=== PATIENT | female | born 1935 | race Caucasian/White ===

== ENCOUNTER 2021-01-06 16:37 | Inpatient (IN) ==
--- NOTE | 2021-01-06 16:41 | Emergency Department Note ---
Impression & Plan SDH (subdural hematoma), Fracture of occipital bone, Fracture of temporal bone, SAH (subarachnoid hemorrhage), Pneumocephalus, traumatic, Zygomatic fracture ED Provider Note NAME: ABRAHAM MAXWELL AGE: 85 SEX: F : 1935 ARRIVES VIA: Ambulance INFORMANT: Patient, ED PROVIDER(S): Kenny Garland MD Chief Complaint: Fall HPI: Patient does present from [facility] for the patient did have a witnessed ground-level fall. No reported LOC. The patient was confused in route but the patient does have a known history of dementia. There was blood coming from the right ear with the patient was sent to CT. The patient does not complain of any pain otherwise. The patient does not have any neck face upper extremity chest back to lower extremity or pelvis pain. Patient did not come with the medication list. Patient is unable to state which medical problems or medications she takes. Patient denies any chest pains or shortness of breath. Patient had no reported seizure. Unsure as to whether not patient takes any blood thinning medications. ROS: See HPI for pertinent positives and negatives. A total of 10 systems were reviewed and otherwise negative. Past medical history: See below Surgical history: See below Social history: See below Physical Exam: GENERAL: NAD, non-toxic. EYE EXAM: Normal conjunctiva. PERRL, no anisocoria and EOM's grossly intact w/o pain. Ears: Left TM clear, right TM with narrow EAC unable to visualized there is blood pooling in the EAC no obvious laceration. Face: Denies pain to the midface no malocclusion. NECK: Supple, no nuchal rigidity, no adenopathy, non-tender. No signs of meningismus. No midline C-spine TTP LUNGS: Clear to auscultation. Normal chest wall mechanics. HEART: NSR, no MRG. ABDOMEN: Abdomen soft, non-tender, normo-active bowel sounds, no masses, no rebound or guarding. BACK: No CVA TTP. SKIN: No rashes and no bruising. UPPER EXTREMITIES: Upper extremities are grossly normal. LOWER EXTREMITIES: Grossly normal, no edema. NEURO EXAM: A&O x3, cranial nerves II-XII grossly intact, normal speech, moves all 4 extremities on command w/o issue. Differential diagnoses: Fracture, dislocation, contusion, intra-abdominal, pneumothorax, intrathoracic, intracranial, neurologic, compartment syndrome, rhabdomyolysis, as well as other pathologies. Course: Patient was seen and evaluated the bedside. Full history physical exam was performed. EKG interpreted by me Sinus tachycardia with occasional PVCs, rate of 108, normal AL and QRS, normal axis. Imaging Studies: See Below Cardiac monitoring: An order was placed for continuous cardiac monitoring. The monitor shows a rate of 65 with sinus rhythm. MDM: Patient was seen due to concern for fall and had blood coming from the right EAC. Patient was immediately taken to CAT scan. I did receive a call from radiology Dr. Andre who stated the patient did have subarachnoid hemorrhage, subdural hemorrhage, temporal and occipital bone fractures. The patient reportedly does not take blood thinning medications. I did speak with the patient's family member at bedside as well as the patient's PODanyel Reynoso who is coming from [facility]. The patient is DNR/DNI and does not want aggressive interventions to be completed. The patient's blood pressure was controlled with labetalol pushes. The patient's head of the bed was raised given the ICH. Keppra was given for seizure prophylaxis. I did speak with [facility] neurosurgery Dr. Retana who did not recommend transfer given that the patient does not want aggressive interventions and also did state that currently it does not sound as though the patient would require intervention of a surgical nature. He did not recommend antibiotics unless there was clear otorrhea or rhinorrhea that was clear in nature. He also did not recommend seizure prophylaxis in an elderly patient with a history of dementia as this may worsen the symptoms. I did update the family they are in agreement with plan of care. The patient will be admitted at [facility] and not be transferred. I did speak with the on- call hospitalist and a [facility] and the patient was admitted by Dr. Esquivel. Critical Care: I have personally spent 77 minutes of critical care time in direct management of this patient. This includes bedside care, interpretation of diagnostic studies, and testing, discussion with consultants, patient, and family members, and other require inpatient management activities. This 77 minutes is in excess of all separately billable procedures. Past Med/Surg History Medical History Alzheimer disease Bullous pemphigoid Hypothyroidism Surgical History History of thyroidectomy History of tonsillectomy and adenoidectomy Social History Smoking Status: Former smoker Tobacco Type: Cigarettes and Pipe Allergies Allergies Allergy/AdvReac Type Severity Reaction Status Date / Time shellfish derived Allergy Unknown Unknown Unverified 01/06/21 18:47 Home Meds Home Medications Medication Instructions Recorded Confirmed docusate sodium 100 mg capsule 100 mg PO BID 01/06/21 01/06/21 (Colace) levothyroxine 88 mcg tablet 88 mcg PO DAILYBB 01/06/21 01/06/21 memantine ER 28 mg-donepezil 10 mg 1 cap PO HS 01/06/21 01/06/21 capsule sprinkle,ext.release 24 hr (Namzaric) sertraline 50 mg tablet 50 mg PO DAILY@1200 01/06/21 01/06/21 triamcinolone acetonide 0.1 % 1 applic TOPICAL TID 01/06/21 01/06/21 topical ointment Results & Data (ED) Vital Signs Vital Signs - 24 hr 01/06/21 17:01 01/06/21 17:02 01/06/21 17:10 Temperature 36.8 C Temperature Source Oral Pulse Rate 115 H 108 H 105 H Respiratory Rate 20 18 16 Respiratory Effort / Characteristics Non-Labored Respiratory Depth Normal Respiratory Pattern Regular Blood Pressure 180/106 H 180/103 H 173/104 H Blood Pressure Mean 130 128 127 Blood Pressure Position Lying Pulse Oximetry 95 96 94 Oxygen Delivery Method Room Air Room Air Room Air Sepsis Recent Fever Within 48 Hours No Sepsis New/Unexplained Change in Mental Status N/A Sepsis Action Taken by Nursing No Action Required 01/06/21 17:18 01/06/21 17:20 01/06/21 17:30 Temperature Temperature Source Pulse Rate 110 H 105 H 105 H Respiratory Rate 19 18 Respiratory Effort / Characteristics Respiratory Depth Respiratory Pattern Blood Pressure 175/104 H 175/106 H Blood Pressure Mean 127 129 Blood Pressure Position Pulse Oximetry 95 94 95 Oxygen Delivery Method Room Air Room Air Room Air Sepsis Recent Fever Within 48 Hours Sepsis New/Unexplained Change in Mental Status Sepsis Action Taken by Nursing 01/06/21 17:40 01/06/21 17:47 01/06/21 17:50 Temperature Temperature Source Pulse Rate 86 70 71 Respiratory Rate 23 20 16 Respiratory Effort / Characteristics Respiratory Depth Respiratory Pattern Blood Pressure 122/81 134/82 142/85 H Blood Pressure Mean 94 99 104 Blood Pressure Position Pulse Oximetry 94 94 93 Oxygen Delivery Method Room Air Room Air Room Air Sepsis Recent Fever Within 48 Hours Sepsis New/Unexplained Change in Mental Status Sepsis Action Taken by Nursing 01/06/21 18:00 01/06/21 18:05 01/06/21 18:10 Temperature Temperature Source Pulse Rate 70 72 73 Respiratory Rate 18 20 17 Respiratory Effort / Characteristics Respiratory Depth Respiratory Pattern Blood Pressure 131/81 142/85 H Blood Pressure Mean 97 104 Blood Pressure Position Pulse Oximetry 93 94 92 Oxygen Delivery Method Room Air Room Air Room Air Sepsis Recent Fever Within 48 Hours Sepsis New/Unexplained Change in Mental Status Sepsis Action Taken by Nursing 01/06/21 18:20 01/06/21 18:30 01/06/21 18:40 Temperature Temperature Source Pulse Rate 73 75 76 Respiratory Rate 17 19 23 Respiratory Effort / Characteristics Respiratory Depth Respiratory Pattern Blood Pressure 148/86 H 128/80 Blood Pressure Mean 106 96 Blood Pressure Position Pulse Oximetry 94 94 93 Oxygen Delivery Method Room Air Room Air Room Air Sepsis Recent Fever Within 48 Hours Sepsis New/Unexplained Change in Mental Status Sepsis Action Taken by Usp Medications Current Medication List: was personally reviewed by me Laboratory Data Attestation: I reviewed the patient's lab results. Result diagrams: 01/06/21 17:10 01/06/21 17:10 Lab Results 01/06/21 01/06/21 01/06/21 Range/Units 17:10 17:10 17:10 WBC 12.31 H (4.8-10.8) K/uL RBC 5.01 (4.2-5.4) M/uL Hgb 15.6 (12.0-16.0) g/dL Hct 46.8 (37-47) % MCV 93.4 (80-100) fL MCH 31.1 (25-34) pg MCHC 33.3 (32-36) g/dL RDW Std Deviation 52.2 H (36.4-46.3) fL RDW Coeff of Flaquito 15.3 H (11.5-14.5) % Plt Count 394 (130-400) K/uL MPV 10.3 (7.4-10.4) fL Immature Gran % (Auto) 0.6 % Neut % (Auto) 75.1 % Lymph % (Auto) 11.9 % Clarke % (Auto) 7.6 % Eos % (Auto) 4.6 % Baso % (Auto) 0.2 % Neut # (Auto) 9.23 H (1.4-6.5) K/uL Lymph # (Auto) 1.47 (1.2-3.4) K/uL Clarke # (Auto) 0.93 H (0.11-0.59) K/uL Eos # (Auto) 0.57 H (0-0.5) K/uL Baso # (Auto) 0.03 (0-0.2) K/uL Immature Gran # (Auto) 0.08 H (0.00-0.02) K/uL PT 10.9 (9.0-12.0) Seconds INR 1.1 (0.9-1.1) APTT 24.8 (21.0-31.0) Seconds PTT Ratio 0.9 Sodium 135 L (136-145) mmol/L Potassium 3.5 (3.5-5.1) mmol/L Chloride 101 (98-107) mmol/L Carbon Dioxide 24 (21-32) mmol/L Anion Gap 10.0 (3-11) BUN 19 H (7-18) mg/dl Creatinine 1.12 (0.6-1.2) mg/dl Est Cr Clr Drug Dosing 30.4 ml/min Est GFR ( Amer) 51.9 ml/min Est GFR (Non-Af Amer) 44.8 ml/min BUN/Creatinine Ratio 17.4 (10-20) Glucose 104 H (70-99) mg/dl Calcium 9.5 (8.5-10.1) mg/dl Total Bilirubin 0.6 (0.2-1) mg/dl AST 25 (15-37) U/L ALT 27 (12-78) U/L Alkaline Phosphatase 126 H (45-117) U/L Total Protein 7.1 (6.4-8.2) gm/dl Albumin 3.2 L (3.4-5.0) gm/dl Globulin 3.9 (2.5-4.0) gm/dl Albumin/Globulin Ratio 0.8 L (0.9-2) SARS-CoV-2, RNA, NAAT (NEGATIVE) 01/06/21 Range/Units 17:45 WBC (4.8-10.8) K/uL RBC (4.2-5.4) M/uL Hgb (12.0-16.0) g/dL Hct (37-47) % MCV (80-100) fL MCH (25-34) pg MCHC (32-36) g/dL RDW Std Deviation (36.4-46.3) fL RDW Coeff of Flaquito (11.5-14.5) % Plt Count (130-400) K/uL MPV (7.4-10.4) fL Immature Gran % (Auto) % Neut % (Auto) % Lymph % (Auto) % Clarke % (Auto) % Eos % (Auto) % Baso % (Auto) % Neut # (Auto) (1.4-6.5) K/uL Lymph # (Auto) (1.2-3.4) K/uL Clarke # (Auto) (0.11-0.59) K/uL Eos # (Auto) (0-0.5) K/uL Baso # (Auto) (0-0.2) K/uL Immature Gran # (Auto) (0.00-0.02) K/uL PT (9.0-12.0) Seconds INR (0.9-1.1) APTT (21.0-31.0) Seconds PTT Ratio Sodium (136-145) mmol/L Potassium (3.5-5.1) mmol/L Chloride (98-107) mmol/L Carbon Dioxide (21-32) mmol/L Anion Gap (3-11) BUN (7-18) mg/dl Creatinine (0.6-1.2) mg/dl Est Cr Clr Drug Dosing ml/min Est GFR ( Amer) ml/min Est GFR (Non-Af Amer) ml/min BUN/Creatinine Ratio (10-20) Glucose (70-99) mg/dl Calcium (8.5-10.1) mg/dl Total Bilirubin (0.2-1) mg/dl AST (15-37) U/L ALT (12-78) U/L Alkaline Phosphatase (45-117) U/L Total Protein (6.4-8.2) gm/dl Albumin (3.4-5.0) gm/dl Globulin (2.5-4.0) gm/dl Albumin/Globulin Ratio (0.9-2) SARS-CoV-2, RNA, NAAT NEGATIVE (NEGATIVE) Administered Medications Discontinued Medications Levetiracetam 1,500 mg/ Sodium (Chloride) 115 mls @ 440 mls/hr IV NOW STA Stop: 01/06/21 17:38 Last Infusion: 01/06/21 18:04 Dose: 440 mls/hr Documented by: [id number] Admin: 01/06/21 17:44 Dose: 440 mls/hr Documented by: [id number] Labetalol HCl (Labetalol Hcl Iv 5 Mg/Ml 20ml) 10 mg IV NOW STA Stop: 01/06/21 17:23 Last Admin: 01/06/21 17:35 Dose: 10 mg Documented by: [id number] Cosigned by: [id number] Imaging Data Radiologist's Impression: Cervical Spine CT 01/06/21 16:40 CT cervical spine wo con CT DOSE: 1397.29 mGy.cm CLINICAL HISTORY: 85 years-old Female with fall. Acute neck injury status post fall COMPARISON: CT head and maxillofacial studies of same day TECHNIQUE: Multiple axial CT images of the cervical spine were obtained without contrast. A dose lowering technique was utilized adhering to the principles of ALARA. FINDINGS: Demineralized appearance of the bones. 5 mm anterolisthesis C3 on C4 with 2 mm anterolisthesis C7 on T1, likely degenerative. Severe multilevel facet arthrosis. Moderate to severe intervertebral disc space narrowing of the mid cervical spine with associated spondylitic spurring and small posterior disc osteophyte complex formations. No acute cervical spine fracture identified. Acute fractures of the right occipital calvarium and temporal bone with right mastoid effusion. Right posterior scalp hematoma with pneumocephalus. Interloop cranial hemorrhage redemonstrated. The right occipital fracture extends into the right occipital condyle on image 98 of series 7. Multilevel neural foraminal narrowing. Intracranial hemorrhage extends into the foramen magnum. No prevertebral edema. The lung apices are clear without pneumothorax. IMPRESSION: 1. No acute cervical spine fracture identified. 2. Anterolisthesis C3 on C4 and C7 on T1 is likely secondary to severe chronic facet arthrosis. 3. Please refer to the CT temporal bone and maxillofacial studies of same day for discussion of the acute intracranial hemorrhage, acute calvarial and facial bone fractures. Note that the right occipital fracture extends into the occipital condyle without displacement. ACT 112: Negative or not required by law. The above report was generated using voice recognition software. It may contain grammatical, syntax or spelling errors. Electronically signed by: Peter Gaffney M.D. 01/06/2021 5:[address] 01/06/21 16:40 CT facial bones wo con, CT temporal bones wo con CLINICAL HISTORY: 85 years-old Female presenting with fall. Acute head injury status post fall COMPARISON STUDY: CT head and cervical spine studies of same day TECHNIQUE: High-resolution CT scan of the maxillofacial and temporal bones were performed. Images are reviewed in the axial, sagittal, and coronal planes. IV contrast was not administered for this examination. A dose lowering technique was utilized adhering to the principles of ALARA. FINDINGS: CT MAXILLOFACIAL: Acute nondisplaced fracture involves the posterior aspect of the right zygomatic arch on image 180 series 8. No acute nasal bone fracture. The paranasal sinuses are generally clear. Pterygoid plates are intact. Mild rightward bowing and spurring of the nasal septum. Degenerative changes of the cervical spine. Acute nondisplaced fractures of the right occipital calvarium with fracture extension to the right occipital condyle. There is associated pneumocephalus with acute intracranial hemorrhage and right posterior scalp,. Intracranial hemorrhage extends into the foramen magnum. Temporal bone fracture as below. Air is noted within the left sigmoid sinus. CT TEMPORAL BONES: The left mastoid air cells and left middle ear cavity is clear. The left ossicles appear normal. The scutum appears sharp bilaterally. No cholesteatoma identified. Acute fracture of the right temporal bone is transverse to the otic capsule. The middle ear ossicles appear intact and appropriately positioned. Large amount of fluid is present within the right middle ear cavity. Large right mastoid effusion. Unremarkable semicircular canals. Course of the seventh, nerve appears normal bilaterally. IMPRESSION: 1. Acute nondisplaced fractures of the right occipital calvarium with fracture extension into the right occipital condyle. Associated right occipital scalp hematoma with subcutaneous emphysema, pneumocephalus and acute intracranial hemorrhage, better characterized on the head CT of same day. 2. Acute fracture of the right temporal bone, transverse to the otic capsule with appropriately positioned and intact middle ear ossicles. Large amount of fluid/hemorrhage is present within the right middle ear cavity and mastoid air cells. 3. Acute nondisplaced fracture of the right zygomatic arch. ACT 112: Negative or not required by law. The above report was generated using voice recognition software. It may contain grammatical, syntax or spelling errors. Electronically signed by: Peter Gaffney M.D. 01/06/2021 5:[address] 01/06/21 16:40 CT head/brain wo con CLINICAL HISTORY: 85 years-old Female with fall. Acute head trauma status post fall TECHNIQUE: Multiple axial CT images of the head were obtained without contrast. A dose lowering technique was utilized adhering to the principles of ALARA. COMPARISON: CT head and maxillofacial studies of same day FINDINGS: Age-related involutional changes with ex vacuo ventriculomegaly. White matter hypodensities suggest chronic microvascular ischemic disease. Cerebral vascular calcifications. Mild subarachnoid hemorrhage of the left frontal lobe. Trace subdural hematoma adjacent to the left frontal and bilateral temporal lobes measuring up to 4 mm within the right middle cranial fossa. Small acute subdural hematoma is also noted along the right parietal and occipital lobes measuring up to 6 mm with associated hydrocephalus. Subdural hemorrhage tracks along the right cerebellar tentorium into the cisterna magna. No midline shift or acute intraventricular or intraparenchymal hemorrhage. Acute fractures of the right temporal bone and right occipital calvarium with right mastoid effusion. Trace air is noted along the inner table of the skull to the left sigmoid sinus on image 5 series 5, likely within the venous system. Prior bilateral lens repair. 5.3 x 0.7 cm right posterolateral scalp hematoma. Probable fracture of the right zygomatic arch. Paranasal sinuses are generally clear. IMPRESSION: 1. Small amount of acute subarachnoid hemorrhage of the left frontal lobe with subcentimeter acute subdural hematomas adjacent to the bilateral cerebral convexities and layering along the right cerebellar tentorium. No midline shift or hydrocephalus. 2. Acute fractures of the right occipital calvarium and right temporal bone with mild associated pneumocephalus and right mastoid effusion. Please refer to the CT maxillofacial study of same day for additional findings. Findings were discussed with Dr. Kenny Garland on 01/06/2021 at 5:10 PM. ACT 112: Negative or not required by law. The above report was generated using voice recognition software. It may contain grammatical, syntax or spelling errors. Electronically signed by: Peter Gaffney M.D. 01/06/2021 5:[address] 01/06/21 16:40 CT facial bones wo con, CT temporal bones wo con CLINICAL HISTORY: 85 years-old Female presenting with fall. Acute head injury status post fall COMPARISON STUDY: CT head and cervical spine studies of same day TECHNIQUE: High-resolution CT scan of the maxillofacial and temporal bones were performed. Images are reviewed in the axial, sagittal, and coronal planes. IV contrast was not administered for this examination. A dose lowering technique was utilized adhering to the principles of ALARA. FINDINGS: CT MAXILLOFACIAL: Acute nondisplaced fracture involves the posterior aspect of the right zygomatic arch on image 180 series 8. No acute nasal bone fracture. The paranasal sinuses are generally clear. Pterygoid plates are intact. Mild rightward bowing and spurring of the nasal septum. Degenerative changes of the cervical spine. Acute nondisplaced fractures of the right occipital calvarium with fracture extension to the right occipital condyle. There is associated pneumocephalus with acute intracranial hemorrhage and right posterior scalp,. Intracranial hemorrhage extends into the foramen magnum. Temporal bone fracture as below. Air is noted within the left sigmoid sinus. CT TEMPORAL BONES: The left mastoid air cells and left middle ear cavity is clear. The left ossicles appear normal. The scutum appears sharp bilaterally. No cholesteatoma identified. Acute fracture of the right temporal bone is transverse to the otic capsule. The middle ear ossicles appear intact and appropriately positioned. Large amount of fluid is present within the right middle ear cavity. Large right mastoid effusion. Unremarkable semicircular canals. Course of the seventh, nerve appears normal bilaterally. IMPRESSION: 1. Acute nondisplaced fractures of the right occipital calvarium with fracture extension into the right occipital condyle. Associated right occipital scalp hematoma with subcutaneous emphysema, pneumocephalus and acute intracranial hemorrhage, better characterized on the head CT of same day. 2. Acute fracture of the right temporal bone, transverse to the otic capsule with appropriately positioned and intact middle ear ossicles. Large amount of fluid/hemorrhage is present within the right middle ear cavity and mastoid air cells. 3. Acute nondisplaced fracture of the right zygomatic arch. ACT 112: Negative or not required by law. The above report was generated using voice recognition software. It may contain grammatical, syntax or spelling errors. Electronically signed by: Peter Gaffney M.D. 01/06/2021 5:42 PM Discharge Plan Visit Data Chief Complaint: Fall ED Provider: Kenny Garland Discharge Problem: SDH (subdural hematoma), Fracture of occipital bone, Fracture of temporal bone, SAH (subarachnoid hemorrhage), Pneumocephalus, traumatic, Zygomatic fracture Forms Stand Alone Forms: [facility] [employer] Prescriptions Prescriptions: No Action levothyroxine 88 mcg tablet 88 mcg PO DAILYBB RF: 0 triamcinolone acetonide 0.1 % ointment 1 applic TOPICAL TID RF: 0 docusate sodium [Colace] 100 mg Capsule 100 mg PO BID RF: 0 sertraline 50 mg tablet 50 mg PO DAILY@1200 RF: 0 Namzaric 28-10 mg capsule,marissa,ER 24hr 1 cap PO HS RF: 0 Referrals Referrals: Naborzoe, [Primary Care Provider] -
--- NOTE | 2021-01-06 17:12 | CT Scan Report ---
CT head/brain wo con CLINICAL HISTORY: 85 years-old Female with fall. Acute head trauma status post fall TECHNIQUE: Multiple axial CT images of the head were obtained without contrast. A dose lowering tech nique was utilized adhering to the principles of ALARA. COMPARISON: CT head and maxillofacial studies of same day FINDINGS: Age-related involutional changes with ex vacuo ventriculomegaly. White matter hypodensities suggest c hronic microvascular ischemic disease. Cerebral vascular calcifications. Mild subarachnoid hemorrhage of the left frontal lobe. Trace subdural hematoma adjacent to the left frontal and bilateral tempora l lobes measuring up to 4 mm within the right middle cranial fossa. Small acute subdural hematoma is also noted along the right parietal and occipital lobes measuring up to 6 mm with associated hydrocep halus. Subdural hemorrhage tracks along the right cerebellar tentorium into the cisterna magna. No mi dline shift or acute intraventricular or intraparenchymal hemorrhage. Acute fractures of the right temporal bone and right occipital calvarium with right mastoid effusion. Trace air is noted along the inner table of the skull to the left sigmoid sinus on image 5 series 5, likely within the venous system. Prior bilateral lens repair. 5.3 x 0.7 cm right posterolateral scal p hematoma. Probable fracture of the right zygomatic arch. Paranasal sinuses are generally clear. IMPRESSION: 1. Small amount of acute subarachnoid hemorrhage of the left frontal lobe with subcentimeter acute fraser bdural hematomas adjacent to the bilateral cerebral convexities and layering along the right cerebell ar tentorium. No midline shift or hydrocephalus. 2. Acute fractures of the right occipital calvarium and right temporal bone with mild associated pneu mocephalus and right mastoid effusion. Please refer to the CT maxillofacial study of same day for add itional findings. Findings were discussed with Dr. Kenny Garland on 01/06/2021 at 5:10 PM. ACT 112: Negative or not required by law. The above report was generated using voice recognition software. It may contain grammatical, syntax o r spelling errors. Electronically signed by: Peter Gaffney M.D. 01/06/2021 5:11 PM
[2021-01-06 17:18] LABS: Basophils # (auto) 0.03 K/uL (0-0.2); Basophils % (auto) 0.2 %; Eosinophils # (auto) 0.57 K/uL (0-0.5); Eosinophils % (auto) 4.6 %; Hematocrit (blood only) 46.8 % (37-47); Hemoglobin 15.6 g/dL (12.0-16.0); Immature Granulocytes # (auto) 0.08 K/uL (0.00-0.02); Immature Granulocytes % (auto) 0.6 %; Lymphocytes # (auto) 1.47 K/uL (1.2-3.4); Lymphocytes % (auto) 11.9 %; Mean Corpuscular Hemoglobin 31.1 pg (25-34); Mean Corpuscular Hgb Conc 33.3 g/dL (32-36); Mean Corpuscular Volume 93.4 fL (80-100); Mean Platelet Volume 10.3 fL (7.4-10.4); Monocytes # (auto) 0.93 K/uL (0.11-0.59); Monocytes % (auto) 7.6 %; Neutrophils # (auto) 9.23 K/uL (1.4-6.5); Neutrophils % (auto) 75.1 %; Platelet Count 394 K/uL (130-400); RDW Coefficient of Variation 15.3 % (11.5-14.5); RDW Standard Deviation 52.2 fL (36.4-46.3); Red Blood Count 5.01 M/uL (4.2-5.4); White Blood Count 12.31 K/uL (4.8-10.8)
[2021-01-06] MEDS ORDERED: LABETALOL HCL IV 5 MG/ML 20ML IV PRN ×2 (17:22→20:32)
[2021-01-06] MEDS ORDERED: LABETALOL HCL IV 5 MG/ML 20ML IV STA (17:22)
[2021-01-06] MEDS ORDERED: levETIRAcetam 1,500 MG in 0.9 % SODIUM CHLORIDE 100 ML IV STA (17:24)
[2021-01-06 17:29] LABS: INR 1.1 (0.9-1.1); Partial Thromboplastin Ratio 0.9; Partial Thromboplastin Time 24.8 Seconds (21.0-31.0); Prothrombin Time 10.9 Seconds (9.0-12.0)
--- NOTE | 2021-01-06 17:36 | CT Scan Report ---
CT cervical spine wo con CT DOSE: 1397.29 mGy.cm CLINICAL HISTORY: 85 years-old Female with fall. Acute neck injury status post fall COMPARISON: CT head and maxillofacial studies of same day TECHNIQUE: Multiple axial CT images of the cervical spine were obtained without contrast. A dose low ering technique was utilized adhering to the principles of ALARA. FINDINGS: Demineralized appearance of the bones. 5 mm anterolisthesis C3 on C4 with 2 mm anterolisthe sis C7 on T1, likely degenerative. Severe multilevel facet arthrosis. Moderate to severe intervertebr al disc space narrowing of the mid cervical spine with associated spondylitic spurring and small post erior disc osteophyte complex formations. No acute cervical spine fracture identified. Acute fracture s of the right occipital calvarium and temporal bone with right mastoid effusion. Right posterior sca lp hematoma with pneumocephalus. Interloop cranial hemorrhage redemonstrated. The right occipital fra cture extends into the right occipital condyle on image 98 of series 7. Multilevel neural foraminal n arrowing. Intracranial hemorrhage extends into the foramen magnum. No prevertebral edema. The lung apices are clear without pneumothorax. IMPRESSION: 1. No acute cervical spine fracture identified. 2. Anterolisthesis C3 on C4 and C7 on T1 is likely secondary to severe chronic facet arthrosis. 3. Please refer to the CT temporal bone and maxillofacial studies of same day for discussion of the a cute intracranial hemorrhage, acute calvarial and facial bone fractures. Note that the right occipita l fracture extends into the occipital condyle without displacement. ACT 112: Negative or not required by law. The above report was generated using voice recognition software. It may contain grammatical, syntax o r spelling errors. Electronically signed by: Peter Gaffney M.D. 01/06/2021 5:35 PM
--- NOTE | 2021-01-06 17:43 | CT Scan Report ---
CT facial bones wo con, CT temporal bones wo con CLINICAL HISTORY: 85 years-old Female presenting with fall. Acute head injury status post fall COMPARISON STUDY: CT head and cervical spine studies of same day TECHNIQUE: High-resolution CT scan of the maxillofacial and temporal bones were performed. Images ar e reviewed in the axial, sagittal, and coronal planes. IV contrast was not administered for this exam ination. A dose lowering technique was utilized adhering to the principles of ALARA. FINDINGS: CT MAXILLOFACIAL: Acute nondisplaced fracture involves the posterior aspect of the right zygomatic arch on image 180 se mimi 8. No acute nasal bone fracture. The paranasal sinuses are generally clear. Pterygoid plates are intact. Mild rightward bowing and spurring of the nasal septum. Degenerative changes of the cervical spine. Acute nondisplaced fractures of the right occipital calvarium with fracture extension to the right occipital condyle. There is associated pneumocephalus with acute intracranial hemorrhage and ri ght posterior scalp,. Intracranial hemorrhage extends into the foramen magnum. Temporal bone fracture as below. Air is noted within the left sigmoid sinus. CT TEMPORAL BONES: The left mastoid air cells and left middle ear cavity is clear. The left ossicles appear normal. The scutum appears sharp bilaterally. No cholesteatoma identified. Acute fracture of the right temporal b one is transverse to the otic capsule. The middle ear ossicles appear intact and appropriately positi oned. Large amount of fluid is present within the right middle ear cavity. Large right mastoid effusi on. Unremarkable semicircular canals. Course of the seventh, nerve appears normal bilaterally. IMPRESSION: 1. Acute nondisplaced fractures of the right occipital calvarium with fracture extension into the rig ht occipital condyle. Associated right occipital scalp hematoma with subcutaneous emphysema, pneumoce phalus and acute intracranial hemorrhage, better characterized on the head CT of same day. 2. Acute fracture of the right temporal bone, transverse to the otic capsule with appropriately posit ioned and intact middle ear ossicles. Large amount of fluid/hemorrhage is present within the right mi ddle ear cavity and mastoid air cells. 3. Acute nondisplaced fracture of the right zygomatic arch. ACT 112: Negative or not required by law. The above report was generated using voice recognition software. It may contain grammatical, syntax o r spelling errors. Electronically signed by: Peter Gaffney M.D. 01/06/2021 5:42 PM
[2021-01-06 17:52] LABS: Albumin Level 3.2 gm/dl (3.4-5.0); BUN Creatinine Ratio 17.4 (10-20); Calcium 9.5 mg/dl (8.5-10.1); Creatinine Clr Calc Pharmacy 30.4 ml/min; Est GFR (African American) 51.9 ml/min; Est GFR (Non-African American) 44.8 ml/min; Potassium 3.5 mmol/L (3.5-5.1)
[2021-01-06 17:54] LABS: Albumin Globulin Ratio 0.8 (0.9-2); Bilirubin,Total 0.6 mg/dl (0.2-1); Globulin 3.9 gm/dl (2.5-4.0); Total Protein 7.1 gm/dl (6.4-8.2)
--- NOTE | 2021-01-06 18:45 | History & Physical Report ---
Date of Service January 06, 2021 Assessment & Plan (1) Fall: (2) SAH (subarachnoid hemorrhage): (3) SDH (subdural hematoma): (4) Fracture of temporal bone: (5) Fracture of occipital bone: (6) Pneumocephalus, traumatic: (7) Zygomatic fracture: Plan: Patient is 85-year-old female with history Alzheimer's disease, surgical hypothyroidism, bullous pemphigoid presented to ER after fall from standing position at [facility]. +blood coming from right ear canal. Pt reported to be at her baseline mental status by family member. CT head: 1. Small amount of acute subarachnoid hemorrhage of the left frontal lobe with subcentimeter acute subdural hematomas adjacent to the bilateral cerebral convexities and layering along the right cerebellar tentorium. No midline shift or hydrocephalus. 2. Acute fractures of the right occipital calvarium and right temporal bone with mild associated pneumocephalus and right mastoid effusion. Please refer to the CT maxillofacial study of same day for additional findings. CT maxillofacial/CT temporal bones: 1. Acute nondisplaced fractures of the right occipital calvarium with fracture extension into the right occipital condyle. Associated right occipital scalp hematoma with subcutaneous emphysema, pneumocephalus and acute intracranial hemorrhage, better characterized on the head CT of same day. 2. Acute fracture of the right temporal bone, transverse to the otic capsule with appropriately positioned and intact middle ear ossicles. Large amount of fluid/hemorrhage is present within the right middle ear cavity and mastoid air cells. 3. Acute nondisplaced fracture of the right zygomatic arch. CT C-spine: No acute cervical fracture ER physician as well as myself spoke to patient's son, SUNG Reynoso who reports patient is DNR/DNI and they do not want any surgical intervention. Patient's son is on his way from [place] and is expected to arrive before 10pm today. In ER patient given Keppra 1500 mg IV, labetalol 10 mg IV ER spoke to [facility] Aydin-Dr. Retana neurosurgery who had recommended no seizure prophylaxis medication and only give antibiotics if clear otorrhea/rhinorrhea consistent with CSF. I also spoke with Dr Retana who reiterated no seizure prophylaxis or antibiotics indicated and recommended can do repeat CT imaging Serial neuro checks Repeat head CT in 12 hours Labetalol as needed BP> 160 Neurology consult (8) Alzheimer disease: Plan: Patient reported to be at baseline Continue home medicine (9) Hypothyroidism: Plan: Continue levothyroxine DVT Prophylaxis -SCDs DNR/DNI as per discussion with pt Pt was seen and care coordinated with Dr Esquivel. See addendum History of Present Illness Chief Complaint: Fall Primary Care Provider: [facility] Patient is 85-year-old female with history Alzheimer's disease, surgical hypothyroidism, bullous pemphigoid presented to ER after fall. Patient is residing at [facility]. History is obtained from ER staff and chart review as patient with history of dementia. It is reported prior to arrival patient was standing and fell. Upon ER arrival it was noted patient had blood coming from right ear canal. Patient's niece is with her in ER currently reports patient's baseline is that she is oriented to person and she knows her niece and great nephew. Not oriented to time or place. Reports patient has recently been on [facility] for past several weeks patient has had increased depressed mood and has not been ambulating. Niece was visiting patient today and patient was able to ambulate with walker. Soon after she visited patient was reported to fall. Here in ER she reports pt seems to be at her baseline mental status. ER physician as well as myself spoke to patient's son, SUNG Reynoso who reports patient is DNR/DNI and they do not want any surgical intervention. Patient's son is on his way from [place] and is expected to arrive before 10pm today. ER spoke to [facility] Aydin-Dr. Retana neurosurgery who had recommended no seizure prophylaxis medication and only give antibiotics if clear otorrhea/rhinorrhea consistent with CSF. I also spoke with Dr Retana who reiterated no seizure prophylaxis or antibiotics indicated and recommended can do repeat CT imaging. Allergies Allergy/AdvReac Type Severity Reaction Status Date / Time shellfish derived Allergy Unknown Unknown Unverified 01/06/21 18:47 Home Medications Medication Instructions Recorded Confirmed Type docusate sodium 100 mg capsule 100 mg PO BID 01/06/21 01/06/21 History (Colace) levothyroxine 88 mcg tablet 88 mcg PO DAILYBB 01/06/21 01/06/21 History memantine ER 28 mg-donepezil 10 mg 1 cap PO HS 01/06/21 01/06/21 History capsule sprinkle,ext.release 24 hr (Namzaric) sertraline 50 mg tablet 50 mg PO DAILY@1200 01/06/21 01/06/21 History triamcinolone acetonide 0.1 % 1 applic TOPICAL TID 01/06/21 01/06/21 History topical ointment Past Med/Surg History Medical History Alzheimer disease Bullous pemphigoid Hypothyroidism Surgical History History of thyroidectomy History of tonsillectomy and adenoidectomy Family History Other Stroke Social History Smoking Status: Unknown if ever smoked Tobacco Type: Cigarettes and Pipe Hx Alcohol Use: No Hx Substance Use: No Review of Systems Review of Systems: Unobtainable due to cognitive status Physical Exam Physical Exam: General: no apparent distress, thin elderly female Head: normocephalic Eyes: PERRL, EOM's appear grossly intact (pt not cooperative), conjunctiva non- injected, anicteric Face: no ecchymosis ENT: +blood in right ear canal, normal inspection external ears, nose, no discharge from nose or left ear, mucous membranes appear moist Neck: supple, trachea midline, no apparent tenderness to palpation Lungs: clear, no respiratory distress, no wheezing/rhonchi/rales CV: RRR, no murmur, no pretibial edema Abd: normal BS, soft, non-tender Ext: no cyanosis, no erythema Neuro: Alert. Pt resting with eyes closed and will open upon command. Seems to recognize niece in room with her. Will not speak to this provider but it is reported she spoke to niece prior to my exam. Pt appears disgusted with my exam however does follow some commands and cooperates with partial exam Able to raise and hold up bilateral arms, textile machine operator strength equal, able to extend and flex bilateral knees, bilateral eyebrow raise symmetric, shoulder shrug intact, face symmetric and strong, tongue midline, normal movement Skin: warm, dry Results & Data Results & Data ([facility]) Vital Signs (Past 12 Hours) Vital Signs Temp Pulse Resp BP Pulse Ox 01/06/21 18:40 76 23 128/80 93 01/06/21 18:30 75 19 94 01/06/21 18:20 73 17 148/86 H 94 01/06/21 18:10 73 17 92 01/06/21 18:05 72 20 142/85 H 94 01/06/21 18:00 70 18 131/81 93 01/06/21 17:50 71 16 142/85 H 93 01/06/21 17:47 70 20 134/82 94 01/06/21 17:40 86 23 122/81 94 01/06/21 17:30 105 H 18 175/106 H 95 01/06/21 17:20 105 H 19 175/104 H 94 01/06/21 17:18 110 H 95 01/06/21 17:10 105 H 16 173/104 H 94 01/06/21 17:02 108 H 18 180/103 H 96 01/06/21 17:01 36.8 C 115 H 20 180/106 H 95 Laboratory Results Short CBC 01/06/21 Range/Units 17:10 WBC 12.31 H (4.8-10.8) K/uL Hgb 15.6 (12.0-16.0) g/dL Hct 46.8 (37-47) % Plt Count 394 (130-400) K/uL BMP 01/06/21 17:10 Sodium 135 L Potassium 3.5 Chloride 101 Carbon Dioxide 24 BUN 19 H Creatinine 1.12 Glucose 104 H Calcium 9.5 Liver Function 01/06/21 Range/Units 17:10 Total Bilirubin 0.6 (0.2-1) mg/dl AST 25 (15-37) U/L ALT 27 (12-78) U/L Alkaline Phosphatase 126 H (45-117) U/L Albumin 3.2 L (3.4-5.0) gm/dl Diagnostic Findings Cervical Spine CT 01/06/21 16:40 CT cervical spine wo con CT DOSE: 1397.29 mGy.cm CLINICAL HISTORY: 85 years-old Female with fall. Acute neck injury status post fall COMPARISON: CT head and maxillofacial studies of same day TECHNIQUE: Multiple axial CT images of the cervical spine were obtained without contrast. A dose lowering technique was utilized adhering to the principles of ALARA. FINDINGS: Demineralized appearance of the bones. 5 mm anterolisthesis C3 on C4 with 2 mm anterolisthesis C7 on T1, likely degenerative. Severe multilevel facet arthrosis. Moderate to severe intervertebral disc space narrowing of the mid cervical spine with associated spondylitic spurring and small posterior disc osteophyte complex formations. No acute cervical spine fracture identified. Acute fractures of the right occipital calvarium and temporal bone with right mastoid effusion. Right posterior scalp hematoma with pneumocephalus. Interloop cranial hemorrhage redemonstrated. The right occipital fracture extends into the right occipital condyle on image 98 of series 7. Multilevel neural foraminal narrowing. Intracranial hemorrhage extends into the foramen magnum. No prevertebral edema. The lung apices are clear without pneumothorax. IMPRESSION: 1. No acute cervical spine fracture identified. 2. Anterolisthesis C3 on C4 and C7 on T1 is likely secondary to severe chronic facet arthrosis. 3. Please refer to the CT temporal bone and maxillofacial studies of same day for discussion of the acute intracranial hemorrhage, acute calvarial and facial bone fractures. Note that the right occipital fracture extends into the occipital condyle without displacement. ACT 112: Negative or not required by law. The above report was generated using voice recognition software. It may contain grammatical, syntax or spelling errors. Electronically signed by: Peter Gaffney M.D. 01/06/2021 5:[address] 01/06/21 16:40 CT facial bones wo con, CT temporal bones wo con CLINICAL HISTORY: 85 years-old Female presenting with fall. Acute head injury status post fall COMPARISON STUDY: CT head and cervical spine studies of same day TECHNIQUE: High-resolution CT scan of the maxillofacial and temporal bones were performed. Images are reviewed in the axial, sagittal, and coronal planes. IV contrast was not administered for this examination. A dose lowering technique was utilized adhering to the principles of ALARA. FINDINGS: CT MAXILLOFACIAL: Acute nondisplaced fracture involves the posterior aspect of the right zygomatic arch on image 180 series 8. No acute nasal bone fracture. The paranasal sinuses are generally clear. Pterygoid plates are intact. Mild rightward bowing and spurring of the nasal septum. Degenerative changes of the cervical spine. Acute nondisplaced fractures of the right occipital calvarium with fracture extension to the right occipital condyle. There is associated pneumocephalus with acute intracranial hemorrhage and right posterior scalp,. Intracranial hemorrhage extends into the foramen magnum. Temporal bone fracture as below. Air is noted within the left sigmoid sinus. CT TEMPORAL BONES: The left mastoid air cells and left middle ear cavity is clear. The left ossic les appear normal. The scutum appears sharp bilaterally. No cholesteatoma identified. Acute fracture of the right temporal bone is transverse to the otic capsule. The middle ear ossicles appear intact and appropriately positioned. Large amount of fluid is present within the right middle ear cavity. Large right mastoid effusion. Unremarkable semicircular canals. Course of the seventh, nerve appears normal bilaterally. IMPRESSION: 1. Acute nondisplaced fractures of the right occipital calvarium with fracture extension into the right occipital condyle. Associated right occipital scalp hematoma with subcutaneous emphysema, pneumocephalus and acute intracranial hemorrhage, better characterized on the head CT of same day. 2. Acute fracture of the right temporal bone, transverse to the otic capsule with appropriately positioned and intact middle ear ossicles. Large amount of fluid/hemorrhage is present within the right middle ear cavity and mastoid air cells. 3. Acute nondisplaced fracture of the right zygomatic arch. ACT 112: Negative or not required by law. The above report was generated using voice recognition software. It may contain grammatical, syntax or spelling errors. Electronically signed by: Peter Gaffney M.D. 01/06/2021 5:[address] 01/06/21 16:40 CT head/brain wo con CLINICAL HISTORY: 85 years-old Female with fall. Acute head trauma status post fall TECHNIQUE: Multiple axial CT images of the head were obtained without contrast. A dose lowering technique was utilized adhering to the principles of ALARA. COMPARISON: CT head and maxillofacial studies of same day FINDINGS: Age-related involutional changes with ex vacuo ventriculomegaly. White matter hypodensities suggest chronic microvascular ischemic disease. Cerebral vascular calcifications. Mild subarachnoid hemorrhage of the left frontal lobe. Trace subdural hematoma adjacent to the left frontal and bilateral temporal lobes measuring up to 4 mm within the right middle cranial fossa. Small acute subdural hematoma is also noted along the right parietal and occipital lobes measuring up to 6 mm with associated hydrocephalus. Subdural hemorrhage tracks along the right cerebellar tentorium into the cisterna magna. No midline shift or acute intraventricular or intraparenchymal hemorrhage. Acute fractures of the right temporal bone and right occipital calvarium with right mastoid effusion. Trace air is noted along the inner table of the skull to the left sigmoid sinus on image 5 series 5, likely within the venous system. Prior bilateral lens repair. 5.3 x 0.7 cm right posterolateral scalp hematoma. Probable fracture of the right zygomatic arch. Paranasal sinuses are generally clear. IMPRESSION: 1. Small amount of acute subarachnoid hemorrhage of the left frontal lobe with subcentimeter acute subdural hematomas adjacent to the bilateral cerebral convexities and layering along the right cerebellar tentorium. No midline shift or hydrocephalus. 2. Acute fractures of the right occipital calvarium and right temporal bone with mild associated pneumocephalus and right mastoid effusion. Please refer to the CT maxillofacial study of same day for additional findings. Findings were discussed with Dr. Kenny Garland on 01/06/2021 at 5:10 PM. ACT 112: Negative or not required by law. The above report was generated using voice recognition software. It may contain grammatical, syntax or spelling errors. Electronically signed by: Peter Gaffney M.D. 01/06/2021 5:[address] 01/06/21 16:40 CT facial bones wo con, CT temporal bones wo con CLINICAL HISTORY: 85 years-old Female presenting with fall. Acute head injury status post fall COMPARISON STUDY: CT head and cervical spine studies of same day TECHNIQUE: High-resolution CT scan of the maxillofacial and temporal bones were performed. Images are reviewed in the axial, sagittal, and coronal planes. IV c ontrast was not administered for this examination. A dose lowering technique was utilized adhering to the principles of ALARA. FINDINGS: CT MAXILLOFACIAL: Acute nondisplaced fracture involves the posterior aspect of the right zygomatic arch on image 180 series 8. No acute nasal bone fracture. The paranasal sinuses are generally clear. Pterygoid plates are intact. Mild rightward bowing and spur ring of the nasal septum. Degenerative changes of the cervical spine. Acute nondisplaced fractures of the right occipital calvarium with fracture extension to the right occipital condyle. There is associated pneumocephalus with acute intracranial hemorrhage and right posterior scalp,. Intracranial hemorrhage extends into the foramen magnum. Temporal bone fracture as below. Air is noted within the left sigmoid sinus. CT TEMPORAL BONES: The left mastoid air cells and left middle ear cavity is clear. The left ossicles appear normal. The scutum appears sharp bilaterally. No cholesteatoma identified. Acute fracture of the right temporal bone is transverse to the otic capsule. The middle ear ossicles appear intact and appropriately positioned. Large amount of fluid is present within the right middle ear cavity. Large right mastoid effusion. Unremarkable semicircular canals. Course of the seventh, nerve appears normal bilaterally. IMPRESSION: 1. Acute nondisplaced fractures of the right occipital calvarium with fracture extension into the right occipital condyle. Associated right occipital scalp hematoma with subcutaneous emphysema, pneumocephalus and acute intracranial hemorrhage, better characterized on the head CT of same day. 2. Acute fracture of the right temporal bone, transverse to the otic capsule with appropriately positioned and intact middle ear ossicles. Large amount of fluid/hemorrhage is present within the right middle ear cavity and mastoid air cells. 3. Acute nondisplaced fracture of the right zygomatic arch. ACT 112: Negative or not required by law. The above report was generated using voice recognition software. It may contain grammatical, syntax or spelling errors. Electronically signed by: Peter Gaffney M.D. 01/06/2021 5:42 PM Supervising Physician Co-Signing Physician Notes Care coordinated with Joselyn Cordova PA-C. Agree with above note. Patient seen and examined. Please refer to her notes for full details. Vital signs reviewed. Physical exam: General exam: Drowsy. Opens wye on calling CVS: S1 and S2 heard, regular rate and rhythm, no murmurs. RS: Clear to auscultation, no wheezing or crackles. ABD: Soft, bowel sounds present, nontender, no distention. MANAGING PARTNER: Drowsy EXT: No edema, no erythema. Labs: Reviewed. Assessment and plan: 85F with hx of dementia, hypothyroidism, depression who resides at retirement was brought in because of fall and bleeding from right ear and found to have right occipital, right temopral and right zygomatic arch and intracraniual bleed with blood in right middle ear. ER and Also Joselyn Cordova spoke with Neurosurgery in [place]. As No aggressive measures per family and patient being DNR/DNI no transfer to [place]. Plan for supportive care, Neuro checks, repeat ct head in am. Neurology consult in am. If condition deteriorates to call Family again to discuss further plans. Currently Dulce is in the room. Son is visiting soon. Other diagnosis and plan of care as per Joselyn Cordova PA-C. Cristhian martinez MD. (1) Fracture of occipital bone Encounter type: initial encounter Fracture type: closed Laterality: right Occipital fracture type: unspecified fracture of occiput Qualified Code(s): S02.119A - Unspecified fracture of occiput, initial encounter for closed fracture (2) Zygomatic fracture Encounter type: initial encounter Fracture type: closed Laterality: right Qualified Code(s): S02.40EA - Zygomatic fracture, right side, initial encounter for closed fracture (3) Fracture of temporal bone Encounter type: initial encounter Fracture type: open Qualified Code(s): S02.19XB - Other fracture of base of skull, initial encounter for open fracture
[2021-01-06] MEDS ORDERED: ACETAMINOPHEN 325 MG TAB PO PRN (20:32)
[2021-01-06] MEDS ORDERED: POLYETHYLENE (MIRALAX) 17 GM PACK PO PRN (20:32)
[2021-01-06] MEDS ORDERED: ONDANSETRON INJ 2 MG/ML 2 ML VIAL IV PRN (20:32)
[2021-01-06] MEDS: DONEPEZIL HCL 10 MG TAB PO SCH (22:59)
[2021-01-06] MEDS: MEMANTINE HCL 10 MG TAB PO SCH (22:59)
[2021-01-06] MEDS: TRIAMCINOLONE ACET 0.1% OINT 15 GM TUBE TOP SCH (22:59)
[2021-01-06] MEDS: DOCUSATE SODIUM 100 MG CAP PO SCH (22:59)
[2021-01-07] MEDS: LEVOTHYROXINE SODIUM 88 MCG TABLET PO SCH (06:03)
[2021-01-07] MEDS: TRIAMCINOLONE ACET 0.1% OINT 15 GM TUBE TOP SCH ×3 (06:03→21:08)
--- NOTE | 2021-01-07 06:42 | CT Scan Report ---
CT OF THE HEAD WITHOUT CONTRAST CLINICAL HISTORY: Follow-up intracranial hemorrhage. COMPARISON STUDY: Head CT January 06, 2021. CT DOSE: 614.27 mGy.cm TECHNIQUE: Helical axial images of the head were obtained without IV contrast. Automated exposure con trol was utilized for the study. A dose lowering technique was utilized adhering to the principles o f ALARA. FINDINGS: A small amount of acute subarachnoid hemorrhage overlying the anterior left frontal lobe is similar to prior exam. An intermediate attenuation left subdural hematoma has increased in size. Thi s measures 6 mm in thickness. There is no significant midline shift. There is trace acute subdural he morrhage along anterior falx which has slightly increased. There is also a small amount of acute subd ural hemorrhage overlying the lateral aspect of the right cerebellar hemisphere measuring 6 mm in thi ckness. This is unchanged. There is associated small amount of pneumocephalus due to overlying calvar ial fractures. These fractures are unchanged and include fractures of the right temporal and occipita l bones. Associated gas within the adjacent soft tissues also noted/ Trace acute hemorrhage within th e occipital horn of the right lateral ventricle is noted. There is no evidence for hydrocephalus. Whi te matter hypodensity suggests small vessel disease. Acute nondisplaced fracture of the posterior asp ect of the right zygomatic arch is better depicted on prior temporal bone CT. IMPRESSION: 1. Increase in size of a small intermediate attenuation left subdural hematoma which measures 6 mm i n thickness. Slight increase in acute subdural hemorrhage along anterior falx. Short-term follow-up h ead CT in 12 to 24 hours is recommended. 2. No significant change in the small right-sided acute subdural hematomas. No change in a small theodore unt of acute subarachnoid hemorrhage overlying the left frontal lobe. 3. Redemonstration of right occipital and calvarial fractures with associated pneumocephalus which is unchanged. 4. Trace acute hemorrhage within the occipital horn of the right lateral ventricle. ACT 112: Negative or not required by law. Electronically signed by: Mike Zepeda M.D. 01/07/2021 6:41 AM
[2021-01-07 07:33] LABS: Hematocrit (blood only) 41.3 % (37-47); Hemoglobin 13.7 g/dL (12.0-16.0); Mean Corpuscular Hemoglobin 30.7 pg (25-34); Mean Corpuscular Hgb Conc 33.2 g/dL (32-36); Mean Corpuscular Volume 92.6 fL (80-100); Mean Platelet Volume 10.6 fL (7.4-10.4); Platelet Count 364 K/uL (130-400); RDW Coefficient of Variation 15.2 % (11.5-14.5); RDW Standard Deviation 51.8 fL (36.4-46.3); Red Blood Count 4.46 M/uL (4.2-5.4); White Blood Count 13.26 K/uL (4.8-10.8)
[2021-01-07 08:00] LABS: BUN Creatinine Ratio 22.4 (10-20); Calcium 8.9 mg/dl (8.5-10.1); Creatinine Clr Calc Pharmacy 38.1 ml/min; Est GFR (African American) 71.4 ml/min; Est GFR (Non-African American) 61.6 ml/min; Potassium 3.8 mmol/L (3.5-5.1)
[2021-01-07] MEDS: DOCUSATE SODIUM 100 MG CAP PO SCH ×2 (08:35→21:08)
[2021-01-07] MEDS: DONEPEZIL HCL 10 MG TAB PO SCH (08:35)
[2021-01-07] MEDS: MEMANTINE HCL 10 MG TAB PO SCH (08:36)
--- NOTE | 2021-01-07 11:32 | Neurology Consultation ---
Date of Consultation January 07, 2021 Assessment & Plan (1) Fall: 1. repeat CT head in 24-48 hours and with MS change 2. continue to monitor 3. no surgical intervention needed 4. fall risk 5. SDH/SAH should resolve over time 6. namenda and aricept are not likely helping at this point 7. sertraline 50 mg for depression 8. watch for otorrhea CSF will follow up by imaging no neurology follow up needed. (2) SDH (subdural hematoma): (3) Fracture of temporal bone: (4) Pneumocephalus, traumatic: Supervising Physician Co-Signing Physician Notes I have seen and discussed above patient with Dr Edgardo Chamberlain, neurology I reviewed the chart the imaging studies have tried to examine this patient who is very advanced Alzheimer's disease and is of no value as a historian and on exam which shows an area of trauma on the right mastoid region corresponding to the area of skull fracture but I do not see any CSF otorrhea and really do not note her to have any significant lethargy or other signs of a major head injury. We are awaiting results of another CT scan to see if there is any further accumulation of blood products, development of hydrocephalus but at this point I do not see any need to start prophylactic anticonvulsants and frankly I am not sure neurology has a lot more to offer here beyond the recommendations that were made by the neurosurgical department at [facility] when the case was reviewed with them We will check back by computer tomorrow look over the imaging but unfortunately examination of the patient is of extremely limited value If she develops seizures certainly we should start Keppra and if CSF otorrhea develops she may need another opinion from neurosurgery and infectious disease regarding antibiotic administration Edgardo Chamberlain MD History of Present Illness Reason for Consultation: [facility] Requesting Physician: Becky Palmer MD Attending Physician: Becky Palmer MD History of Present Illness Felecia is 85 year old female with PMH Alzheimer's disease, surgical hypothyroidism, bullous pemphigoid presented to [facility] 01/06/2021 ER after fall. She is a resident at [facility]. It is reported prior to arrival patient was standing and fell and had blood coming from right ear canal.Her niece is reported she is at baseline is that she is oriented to person and she knows her niece and great nephew but not oriented to date or time.she has had increased depressed mood and has not been ambulating. Niece was visiting and she was able to ambulate with walker then shortly after the visit she had a fall. SUNG Reynoso reports she is DNR/DNI and they do not want any surgical intervention. Allergies Allergy/AdvReac Type Severity Reaction Status Date / Time shellfish derived Allergy Unknown Unknown Unverified 01/06/21 18:47 Home Medications Medication Instructions Recorded Confirmed Type docusate sodium 100 mg capsule 100 mg PO BID 01/06/21 01/06/21 History (Colace) levothyroxine 88 mcg tablet 88 mcg PO DAILYBB 01/06/21 01/06/21 History memantine ER 28 mg-donepezil 10 mg 1 cap PO HS 01/06/21 01/06/21 History capsule sprinkle,ext.release 24 hr (Namzaric) sertraline 50 mg tablet 50 mg PO DAILY@1200 01/06/21 01/06/21 History triamcinolone acetonide 0.1 % 1 applic TOPICAL TID 01/06/21 01/06/21 History topical ointment Patient History Medical History Alzheimer disease Bullous pemphigoid Hypothyroidism Surgical History History of thyroidectomy History of tonsillectomy and adenoidectomy Family History Other Stroke Social History Smoking Status: Unknown if ever smoked Tobacco Type: Cigarettes and Pipe Hx Alcohol Use: No Hx Substance Use: No Preferred Language: Swazi Communication Ability: Impaired Underwater Hunter Required: No Beliefs That Will Affect Care: None marital status: / Current Living Situation: Longterm Other Information That Helps Us Care for You: No Feels Safe at Home: Yes Assistive Devices: Walker Review of Systems Review of Systems: Unobtainable due to cognitive status Physical Exam Physical Exam: Physical Exam: Constitutional: appearance nourished, notable, has taken all her clothes off Ears, Nose, Mouth and Throat: mucous membranes moist, no injection and skin normal, eyes normal Cardiovascular: normal S-1 and S-2 and regular rate and rhythm Respiratory: clear to auscultation (CTA) Musculoskeletal: no peripheral edema and good distal pulses Skin: ecchymosis, behind left ear. some discharge on pillow but unclear source Eyes: extraocular muscles intact (EOMI) NEUROLOGIC EXAMINATION: Mental status: Alert and minimally interactive Oriented to person Speech clear Reflexes: Deep tendon reflexes were symmetrical and graded 2/5. Sensory: light touch Coordination: unable to assess Gait/Stance: Posture lying in bed Motor: move without assistance from side to side Strength: moves all ext purposefully Results & Data ([facility]) Vital Signs (Past 12 Hours) Vital Signs Temp Pulse Pulse Resp BP Pulse Ox 01/07/21 10:51 84 01/07/21 08:32 36.5 C 85 20 111/68 99 01/07/21 04:00 36.8 C 81 18 109/69 93 01/07/21 01:00 89 Laboratory Results Abnormal lab results 01/06/21 01/06/21 01/07/21 Range/Units 17:10 17:10 07:01 WBC 12.31 H 13.26 H (4.8-10.8) K/uL RDW Std Deviation 52.2 H 51.8 H (36.4-46.3) fL RDW Coeff of Flaquito 15.3 H 15.2 H (11.5-14.5) % MPV 10.6 H (7.4-10.4) fL Neut # (Auto) 9.23 H (1.4-6.5) K/uL Butler # (Auto) 0.93 H (0.11-0.59) K/uL Eos # (Auto) 0.57 H (0-0.5) K/uL Immature Gran # (Auto) 0.08 H (0.00-0.02) K/uL Sodium 135 L (136-145) mmol/L BUN 19 H (7-18) mg/dl BUN/Creatinine Ratio (10-20) Glucose 104 H (70-99) mg/dl Alkaline Phosphatase 126 H (45-117) U/L Albumin 3.2 L (3.4-5.0) gm/dl Albumin/Globulin Ratio 0.8 L (0.9-2) 01/07/21 Range/Units 07:01 WBC (4.8-10.8) K/uL RDW Std Deviation (36.4-46.3) fL RDW Coeff of Flaquito (11.5-14.5) % MPV (7.4-10.4) fL Neut # (Auto) (1.4-6.5) K/uL Butler # (Auto) (0.11-0.59) K/uL Eos # (Auto) (0-0.5) K/uL Immature Gran # (Auto) (0.00-0.02) K/uL Sodium (136-145) mmol/L BUN 19 H (7-18) mg/dl BUN/Creatinine Ratio 22.4 H (10-20) Glucose (70-99) mg/dl Alkaline Phosphatase (45-117) U/L Albumin (3.4-5.0) gm/dl Albumin/Globulin Ratio (0.9-2) Diagnostic Findings CT c spine-No acute cervical spine fracture identified. Anterolisthesis C3 on C4 and C7 on T1 is likely secondary to severe chronic facet arthrosis. the right occipital fracture extends into the occipital condyle without displacement. CT temporal bones-Acute nondisplaced fractures of the right occipital calvarium with fracture extension into the right occipital condyle. Associated right occ ipital scalp hematoma with subcutaneous emphysema, pneumocephalus and acute intracranial hemorrhage, better characterized on the head CT of same day. Acute fracture of the right temporal bone, transverse to the otic capsule with appropriately positioned and intact middle ear ossicles. Large amount of fluid/hemorrhage is present within the right middle ear cavity and mastoid air cells. Acute nondisplaced fracture of the right zygomatic arch. cT head-Small amount of acute subarachnoid hemorrhage of the left frontal lobe with subcentimeter acute subdural hematomas adjacent to the bilateral cerebral convexities and layering along the right cerebellar tentorium. No midline shift or hydrocephalus. Acute fractures of the right occipital calvarium and right temporal bone with mild associated pneumocephalus and right mastoid effusion. Please refer to the CT maxillofacial study of same day for additional findings. (1) Fracture of temporal bone Encounter type: initial encounter Fracture type: open Qualified Code(s): S02.19XB - Other fracture of base of skull, initial encounter for open fracture
[2021-01-07] MEDS: SERTRALINE HCL 50 MG TABLET PO SCH (12:34)
--- NOTE | 2021-01-07 19:20 | Hospitalist Progress Note ---
Date of Service January 07, 2021 Assessment & Plan (1) Fall: (2) SAH (subarachnoid hemorrhage): (3) SDH (subdural hematoma): (4) Fracture of temporal bone: (5) Fracture of occipital bone: (6) Pneumocephalus, traumatic: (7) Zygomatic fracture: Plan: 85-year-old female with history Alzheimer's disease, surgical hypothyroidism, bullous pemphigoid presented to ER after fall from standing position at [facility]. +blood coming from right ear canal. CT head showed small amount of acute subarachnoid hemorrhage of the left frontal lobe with subcentimeter acute subdural hematomas adjacent to the bilateral cerebral convexities and layering along the right cerebellar tentorium. No midline shift or hydrocephalus. Acute fractures of the right occipital calvarium and right temporal bone with mild associated pneumocephalus and right mastoid effusion. CT maxillofacial/CT temporal bones acute nondisplaced fractures of the right occipital calvarium with fracture extension into the right occipital condyle. Associated right occipital scalp hematoma with subcutaneous emphysema, pneumocephalus and acute intracranial hemorrhage. Acute fracture of the right temporal bone, transverse to the otic capsule with appropriately positioned and intact middle ear ossicles. Large amount of fluid/hemorrhage is present within the right middle ear cavity and mastoid air cells. Acute nondisplaced fracture of the right zygomatic arch. CT C-spine: No acute cervical fracture ER physician and Hospitalist on admission discussed the case with neurosurgery Dr. Retana in [facility] recommended no seizure prophylaxis medication at this time. We will need to watch for otorrhea CSF to start on antibiotic Family do not want any surgical intervention Repeat CT showed increase in size of a small intermediate attenuation left subdural hematoma which measures 6 mm in thickness. Slight increase in acute subdural hemorrhage Case discussed with neurology that recommended to repeat CT head in am Continue monitor closely (8) Alzheimer disease: Plan: Seems to be at baseline. Continue home medicine (9) Hypothyroidism: Plan: Continue levothyroxine DVT Prophylaxis SCDs due to intracranial hemorrhage CODE STATUS DNR/DNI Admission and Anticipated Discharge Date Admission Date: January 06, 2021 Subjective Patient was seen and examined for follow-up of subdural hematoma Lying in bed with no acute distress confused and seems to be at baseline pain She said that she feels fine and denies any symptoms Review of Systems Review of Systems: All systems reviewed & are unremarkable except as noted in Subjective Physical Exam Physical Exam: General- No acute distress Head- atraumatic Eyes- PERRL, EOMI, ENT- oropharynx clear Neck- supple, no JVD Lungs- clear to auscultation Heart- regular rhythm; no murmur Abdomen- normal bowel sounds, soft, nontender Extremities- no calf tenderness Neuro- awake, PERRL, EOMI; no facial palsy; no dysarthria, move all 4 extremities Skin- warm & dry Results & Data Results & Data ([facility]) Vital Signs (Past 12 Hours) Vital Signs Temp Pulse Pulse Resp BP Pulse Ox 01/07/21 10:51 84 01/07/21 08:32 36.5 C 85 20 111/68 99 (1) Fracture of temporal bone Encounter type: initial encounter Fracture type: open Qualified Code(s): S02.19XB - Other fracture of base of skull, initial encounter for open fracture (2) Fracture of occipital bone Encounter type: initial encounter Fracture type: closed Laterality: right Occipital fracture type: unspecified fracture of occiput Qualified Code(s): S02.119A - Unspecified fracture of occiput, initial encounter for closed fracture (3) Zygomatic fracture Encounter type: initial encounter Fracture type: closed Laterality: right Qualified Code(s): S02.40EA - Zygomatic fracture, right side, initial encounter for closed fracture
--- NOTE | 2021-01-08 05:53 | Electrocardiogram Report ---
Test Reason : Blood Pressure : / mmHG Vent. Rate : 108 BPM Atrial Rate : 108 BPM P-R Int : 144 ms QRS Dur : 084 ms QT Int : 360 ms P-R-T Axes : 063 -06 191 degrees QTc Int : 483 ms Sinus tachycardia with occasional Premature ventricular complexes Possible Left atrial enlargement Septal infarct , age undetermined Prolonged QT Abnormal ECG No previous ECGs available Confirmed by Duane Escamilla ([id number]) on 01/08/2021 5:53:10 AM Referred By: Sanju Confirmed By:Duane Escamilla
[2021-01-08] MEDS: TRIAMCINOLONE ACET 0.1% OINT 15 GM TUBE TOP SCH ×3 (06:09→19:33)
[2021-01-08] MEDS: LEVOTHYROXINE SODIUM 88 MCG TABLET PO SCH (06:09)
[2021-01-08 09:12] LABS: Hematocrit (blood only) 40.3 % (37-47); Hemoglobin 13.5 g/dL (12.0-16.0); Mean Corpuscular Hemoglobin 31.2 pg (25-34); Mean Corpuscular Hgb Conc 33.5 g/dL (32-36); Mean Corpuscular Volume 93.1 fL (80-100); Mean Platelet Volume 10.5 fL (7.4-10.4); Platelet Count 346 K/uL (130-400); RDW Coefficient of Variation 15.1 % (11.5-14.5); RDW Standard Deviation 51.5 fL (36.4-46.3); Red Blood Count 4.33 M/uL (4.2-5.4); White Blood Count 11.88 K/uL (4.8-10.8)
[2021-01-08 09:40] LABS: BUN Creatinine Ratio 21.3 (10-20); Calcium 8.7 mg/dl (8.5-10.1); Creatinine Clr Calc Pharmacy 43.5 ml/min; Est GFR (Non-African American) 75.1 ml/min; Potassium 3.5 mmol/L (3.5-5.1)
--- NOTE | 2021-01-08 10:52 | CT Scan Report ---
HEAD CT NONCONTRAST CT DOSE: 614.27 mGy.cm HISTORY: f/u intracranial hemorrhage TECHNIQUE: Multiaxial CT images of the head were performed without the use of intravenous contrast. A utomated exposure control was utilized for this study. A dose lowering technique was utilized adheri ng to the principles of ALARA. Comparison: Head CT 01/07/2021. Findings: The paranasal sinuses are clear. Redemonstration of the right occipital and temporal bone f ractures with fluid opacification of the right middle ear cavity and right mastoid air cells. There i s trace fluid within the left mastoid air cells with small amount of adjacent pneumocephalus. This fa vors an occult left temporal bone fracture. Right posterior scalp swelling is again noted. Small acut e bilateral subdural hematomas are again noted. Left frontal subarachnoid hemorrhage/cortical contusi on has slightly improved. Trace intraventricular hemorrhage within the occipital horns has slightly p rogressed. No midline shift. Impression: 1. A significant change in the small bilateral subdural hematomas and left frontal lobe subarachnoid hemorrhage/contusion. 2. Slight increase in the small amount of intraventricular hemorrhage within the occipital horns. 3. Right temporal/occipital bone fractures are again noted. There is also a few opacified left mastoi d air cells and trace pneumocephalus adjacent to the left mastoid. This favors an occult left-sided t emporal bone fracture. ACT 112: Negative or not required by law. Electronically signed by: Vlad Castellanos M.D. 01/08/2021 10:50 AM
--- NOTE | 2021-01-08 13:23 | Hospitalist Progress Note ---
Date of Service January 08, 2021 Assessment & Plan (1) Fall: (2) SAH (subarachnoid hemorrhage): (3) SDH (subdural hematoma): (4) Fracture of temporal bone: (5) Fracture of occipital bone: (6) Pneumocephalus, traumatic: (7) Zygomatic fracture: Plan: 85-year-old female with history Alzheimer's disease, surgical hypothyroidism, bullous pemphigoid presented to ER after fall from standing position at [facility]. +blood coming from right ear canal. CT head showed small amount of acute subarachnoid hemorrhage of the left frontal lobe with subcentimeter acute subdural hematomas adjacent to the bilateral cerebral convexities and layering along the right cerebellar tentorium. No midline shift or hydrocephalus. Acute fractures of the right occipital calvarium and right temporal bone with mild associated pneumocephalus and right mastoid effusion. CT maxillofacial/CT temporal bones acute nondisplaced fractures of the right occipital calvarium with fracture extension into the right occipital condyle. Associated right occipital scalp hematoma with subcutaneous emphysema, pneumocephalus and acute intracranial hemorrhage. Acute fracture of the right temporal bone, transverse to the otic capsule with appropriately positioned and intact middle ear ossicles. Large amount of fluid/hemorrhage is present within the right middle ear cavity and mastoid air cells. Acute nondisplaced fracture of the right zygomatic arch. CT C-spine: No acute cervical fracture Repeat CT head today showed significant change in the small bilateral subdural hematomas and left frontal lobe subarachnoid hemorrhage/contusion. Slight increase in the small amount of intraventricular hemorrhage within the occipital horns. Right temporal/occipital bone fractures are again noted. There is also a few opacified left mastoid air cells and trace pneumocephalus adjacent to the left mastoid. This favors an occult left-sided temporal bone fracture. ER physician and Hospitalist on admission discussed the case with neurosurgery Dr. Retana in [facility] recommended no seizure prophylaxis medication at this time. We will need to watch for otorrhea CSF to start on abx Family do not want any surgical intervention Will discussed repeat CT report to neuro Will monitor closely for seizure Continue monitor closely (8) Alzheimer disease: Plan: Seems to be at baseline. Continue home medicine (9) Hypothyroidism: Plan: Continue levothyroxine DVT Prophylaxis SCDs due to intracranial hemorrhage CODE STATUS DNR/DNI Admission and Anticipated Discharge Date Admission Date: January 06, 2021 Subjective Patient was seen and examined for follow-up of subdural hematoma Lying in bed with no acute distress confused and seems to be at baseline pain Spoke to son in length this morning and provided with updates She said that she feels fine and denies any symptoms Review of Systems Review of Systems: All systems reviewed & are unremarkable except as noted in Subjective Physical Exam Physical Exam: General- No acute distress, confused Head- atraumatic Eyes- PERRL, EOMI, ENT- oropharynx clear Neck- supple, no JVD Lungs- clear to auscultation Heart- regular rhythm; no murmur Abdomen- normal bowel sounds, soft, nontender Extremities- no calf tenderness Neuro- awake, PERRL, EOMI; no facial palsy; no dysarthria, move all 4 extremi ties Skin- warm & dry Results & Data Results & Data ([facility]) Vital Signs (Past 12 Hours) Vital Signs Temp Pulse Pulse Resp BP Pulse Ox 01/08/21 10:53 92 H 01/08/21 04:00 37.1 C 76 18 160/74 H 95 (1) Fracture of occipital bone Encounter type: initial encounter Fracture type: closed Laterality: right Occipital fracture type: unspecified fracture of occiput Qualified Code(s): S02.119A - Unspecified fracture of occiput, initial encounter for closed fracture (2) Zygomatic fracture Encounter type: initial encounter Fracture type: closed Laterality: right Qualified Code(s): S02.40EA - Zygomatic fracture, right side, initial encounter for closed fracture (3) Fracture of temporal bone Encounter type: initial encounter Fracture type: open Qualified Code(s): S02.19XB - Other fracture of base of skull, initial encounter for open fracture
[2021-01-08] MEDS: SERTRALINE HCL 50 MG TABLET PO SCH (13:27)
[2021-01-08] MEDS: DOCUSATE SODIUM 100 MG CAP PO SCH ×2 (13:27→19:33)
[2021-01-08] MEDS: MEMANTINE HCL 10 MG TAB PO SCH (13:27)
[2021-01-08] MEDS: DONEPEZIL HCL 10 MG TAB PO SCH (13:28)
--- NOTE | 2021-01-08 16:00 | Communication Note ---
Date of Service: January 08, 2021 improving SAH and SDH, watch for otorrhea. ok to discharge to facility and CT head in 1 week I have seen and discussed above patient with Dr Edgardo Chamberlain, neurology I have reviewed the above plans with Dr. Palmer and Sheree Corona PA-C and agree Edgardo Chamberlain MD
[2021-01-09] MEDS: LEVOTHYROXINE SODIUM 88 MCG TABLET PO SCH (06:04)
[2021-01-09] MEDS: TRIAMCINOLONE ACET 0.1% OINT 15 GM TUBE TOP SCH ×3 (06:04→21:08)
[2021-01-09] MEDS: DOCUSATE SODIUM 100 MG CAP PO SCH ×2 (07:52→21:08)
[2021-01-09] MEDS: DONEPEZIL HCL 10 MG TAB PO SCH (07:52)
[2021-01-09] MEDS: MEMANTINE HCL 10 MG TAB PO SCH (07:52)
[2021-01-09 09:12] LABS: Hematocrit (blood only) 41.9 % (37-47); Hemoglobin 14.2 g/dL (12.0-16.0); Mean Corpuscular Hemoglobin 31.3 pg (25-34); Mean Corpuscular Hgb Conc 33.9 g/dL (32-36); Mean Corpuscular Volume 92.3 fL (80-100); Mean Platelet Volume 10.4 fL (7.4-10.4); Nucleated RBC # (auto) 0.03 K/uL (0-0); Nucleated RBC % (auto) 0.3 %; Platelet Count 353 K/uL (130-400); RDW Coefficient of Variation 15.1 % (11.5-14.5); RDW Standard Deviation 50.7 fL (36.4-46.3); Red Blood Count 4.54 M/uL (4.2-5.4)
--- NOTE | 2021-01-09 10:07 | Psychiatric Consultation ---
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 ongoing personality change due to major cognitive disorder (Alzheimer's dx). She is on a Zoloft trial. Unclear benefit and now decline in function s/p fall. (1) Depressive disorder: (2) Hypothyroidism: (3) Alzheimer disease: liaison spoke with [facility] and they have already initiated a referral to [facility] and she has visits from psychiatric nurse reviewed with son and Dr. Dominguez that I would not increase Zoloft in the setting of an acute brain bleed due to antiplatelet effects but can be reassessed on an outpatient basis. reviewed with son that her TSH is just above normal and her anergia could be some degree of subclinical hypothyroidism and [facility] confirmed that TSH recheck is scheduled. Thyroid panels in hospital can be reactive. reviewed that level of nursing/skilled care vs rehab is deferred to the hospitalist service/CM. Risk Factors Assessment Do You Have Access To A Gun?: No Psych History Identifying Data 85 yo female who was admitted s/p fall with SAH and SDH and skull fractures. Consult is by hospitalist service at request of family for depression. Chief Complaint "she's just not the same since she went to [facility]" per son. History of Present Illness He states that at baseline his mother is active and fiesty, outgoing and smiling, likes to eat. 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 She is a [employer] fan. There has been gradual decline since diagnosis of Alzheimers and also due to pandemic she hasn't seen her grandchildren since 2019. She was started on Zoloft recently and occasionally has used Ativan for anxiety there but otherwise has no prior psych history. She requires much encouragement to eat and when he told her she should eat to live she mentioned last night there was nothing to live for but he did not interpret this as a suicidal statement. He is concerned about her level of nursing support and was directed to the hospitalist service. Past Psychiatric History Previous Psych History: denied Previous Psych Admissions: denied Do You Have Access To A Gun?: No History of Previous Suicide Attempt: No Past Medication Trials: denied Allergies Allergy/AdvReac Type Severity Reaction Status Date / Time shellfish derived Allergy Unknown Unknown Unverified 01/06/21 18:47 Home Medications Medication Instructions Recorded Confirmed Type docusate sodium 100 mg capsule 100 mg PO BID 01/06/21 01/06/21 History (Colace) levothyroxine 88 mcg tablet 88 mcg PO DAILYBB 01/06/21 01/06/21 History memantine ER 28 mg-donepezil 10 mg 1 cap PO HS 01/06/21 01/06/21 History capsule sprinkle,ext.release 24 hr (Namzaric) sertraline 50 mg tablet 50 mg PO DAILY@1200 01/06/21 01/06/21 History triamcinolone acetonide 0.1 % 1 applic TOPICAL TID 01/06/21 01/06/21 History topical ointment Personal History Beliefs That Will Affect Care: None Patient History Medical History Alzheimer disease Bullous pemphigoid Hypothyroidism Surgical History History of thyroidectomy History of tonsillectomy and adenoidectomy Family History Other Stroke Social History Smoking Status: Unknown if ever smoked Tobacco Type: Cigarettes and Pipe Hx Alcohol Use: No Hx Substance Use: No Preferred Language: French Communication Ability: Impaired 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 No abnormal motor movements, did not appear to be responding to internal stimuli. She would gesture to her son and acknowledge him but otherwise rather limited in interactions. Vital Signs (Past 24 Hours): Last Vital Signs Temp 36.7 C 01/09/21 07:51 Pulse 88 01/09/21 07:51 Resp 18 01/09/21 07:51 BP 153/80 H 01/09/21 07:51 Pulse Ox 98 01/09/21 07:51 Review of Systems Unobtainable due to cognitive status Results & Data (PSY) Laboratory Results 01/09/21 Range/Units 08:29 WBC 10.70 (4.8-10.8) K/uL RBC 4.54 (4.2-5.4) M/uL Hgb 14.2 (12.0-16.0) g/dL Hct 41.9 (37-47) % MCV 92.3 (80-100) fL MCH 31.3 (25-34) pg MCHC 33.9 (32-36) g/dL RDW Std Deviation 50.7 H (36.4-46.3) fL RDW Coeff of Flaquito 15.1 H (11.5-14.5) % Plt Count 353 (130-400) K/uL MPV 10.4 (7.4-10.4) fL Absolute Nucleated RBC 0.03 H (0-0) K/uL Nucleated RBC % (auto) 0.3 % Medications Administered Docusate Sodium (Docusate Sodium 100 Mg Cap) 100 mg PO BID ENRIQUE Stop: 02/05/21 20:59 Last Admin: 01/09/21 07:52 Dose: 100 mg Documented by: [id number] Admin: 01/08/21 19:33 Dose: 100 mg Documented by: [id number] Admin: 01/08/21 13:27 Dose: 100 mg Documented by: [id number] Admin: 01/07/21 21:08 Dose: Not Given Documented by: [id number] Admin: 01/07/21 08:35 Dose: 100 mg Documented by: [id number] Admin: 01/06/21 22:59 Dose: Not Given Documented by: [id number] Donepezil HCl (Donepezil Hcl 10 Mg Tab) 10 mg PO DAILY ENRIQUE Stop: 02/07/21 08:59 Last Admin: 01/09/21 07:52 Dose: 10 mg Documented by: [id number] Admin: 01/08/21 13:28 Dose: 10 mg Documented by: [id number] Levothyroxine Sodium (Levothyroxine Sodium 88 Mcg Tablet) 88 mcg PO DAILYBB ENRIQUE Stop: 02/06/21 06:29 Last Admin: 01/09/21 06:04 Dose: 88 mcg Documented by: [id number] Admin: 01/08/21 06:09 Dose: 88 mcg Documented by: [id number] Admin: 01/07/21 06:03 Dose: Not Given Documented by: [id number] Memantine (Memantine Hcl 10 Mg Tab) 10 mg PO DAILY [facility] Stop: 02/07/21 08:59 Last Admin: 01/09/21 07:52 Dose: 10 mg Documented by: [id number] Admin: 01/08/21 13:27 Dose: 10 mg Documented by: [id number] Sertraline HCl (Sertraline Hcl 50 Mg Tablet) 50 mg PO DAILY@1200 [facility] Stop: 02/06/21 11:59 Last Admin: 01/08/21 13:27 Dose: 50 mg Documented by: [id number] Admin: 01/07/21 12:34 Dose: Not Given Documented by: [id number] Triamcinolone Acetonide (Triamcinolone Acet 0.1% Oint 15 Gm Tube) 1 appln TOP TID@0600,1200,2000 [facility] Stop: 02/05/21 20:59 Last Admin: 01/09/21 06:04 Dose: Not Given Documented by: [id number] Admin: 01/08/21 19:33 Dose: 1 appln Documented by: [id number] Admin: 01/08/21 13:28 Dose: 1 appln Documented by: [id number] Admin: 01/08/21 06:09 Dose: Not Given Documented by: [id number] Admin: 01/07/21 21:08 Dose: Not Given Documented by: [id number] Admin: 01/07/21 12:34 Dose: Not Given Documented by: [id number] Admin: 01/07/21 06:03 Dose: Not Given Documented by: [id number] Admin: 01/06/21 22:59 Dose: Not Given Documented by: [id number] Coding Level of Care Code 17692 Inpt Consult Level 3 Diagnoses Depressive disorder F32.9 Hypothyroidism E03.9 Alzheimer disease G30.9; F02.80
--- NOTE | 2021-01-09 10:56 | Hospitalist Progress Note ---
Date of Service January 09, 2021 Assessment & Plan (1) Fall: (2) SAH (subarachnoid hemorrhage): (3) SDH (subdural hematoma): (4) Fracture of temporal bone: (5) Fracture of occipital bone: (6) Pneumocephalus, traumatic: (7) Zygomatic fracture: Plan: 85-year-old female with history Alzheimer's disease, surgical hypothyroidism, bullous pemphigoid presented to ER after fall from standing position at [facility]. +blood coming from right ear canal. CT head showed small amount of acute subarachnoid hemorrhage of the left frontal lobe with subcentimeter acute subdural hematomas adjacent to the bilateral cerebral convexities and layering along the right cerebellar tentorium. No midline shift or hydrocephalus. Acute fractures of the right occipital calvarium and right temporal bone with mild associated pneumocephalus and right mastoid effusion. CT maxillofacial/CT temporal bones acute nondisplaced fractures of the right occipital calvarium with fracture extension into the right occipital condyle. Associated right occipital scalp hematoma with subcutaneous emphysema, pneumocephalus and acute intracranial hemorrhage. Acute fracture of the right temporal bone, transverse to the otic capsule with appropriately positioned and intact middle ear ossicles. Large amount of fluid/hemorrhage is present within the right middle ear cavity and mastoid air cells. Acute nondisplaced fracture of the right zygomatic arch. CT C-spine: No acute cervical fracture Repeat CT head today showed significant change in the small bilateral subdural hematomas and left frontal lobe subarachnoid hemorrhage/contusion. Slight increase in the small amount of intraventricular hemorrhage within the occipital horns. Right temporal/occipital bone fractures are again noted. There is also a few opacified left mastoid air cells and trace pneumocephalus adjacent to the left mastoid. This favors an occult left-sided temporal bone fracture. ER physician and Hospitalist on admission discussed the case with neurosurgery Dr. Retana in [facility] recommended no seizure prophylaxis medication at this time. We will need to watch for otorrhea CSF to start on abx Family do not want any surgical intervention Repeat CT noted. Neurologist recommendations noted. Patient to get CT head in a week for reevaluation. (8) Alzheimer disease: Plan: Seems to be at baseline. Continue home medicine (9) Hypothyroidism: Plan: Continue levothyroxine DVT Prophylaxis SCDs due to intracranial hemorrhage CODE STATUS DNR/DNI I discussed with patient's son over the phone. He had requested psychiatric evaluation. Psychiatrist evaluation noted. No medication adjustments needed at this time. Discussed with corrections caseworker who is working on placement. We will discharge patient as soon as bed is available Admission and Anticipated Discharge Date Admission Date: January 06, 2021 Subjective 85-year-old woman with Alzheimer's disease, surgical hypothyroidism, bullous pemphigoid who presented after a fall. Being managed for subarachnoid hemorrhage, subdural hematoma and fractures of temporal/occipital bones. Patient seen and examined this morning. Patient in no distress. Patient denied all symptoms No events overnight Physical Exam Constitutional: + well hydrated; no acute distress Eyes: PERRL, conjunctivae normal, anicteric sclerae ENMT: external ear and nose normal, oropharynx normal No otorrhea noted Respiratory: normal respiratory effort, lungs clear to auscultation Cardiovascular: RRR, S1-S2 Gastrointestinal (Abdomen): normal bowel sounds, soft, nontender, no hepatosplenomegaly Musculoskeletal: No pedal edema Neurologic: PERRL, EOMI, accommodation nl, no face palsy, no dysarthria Psychiatric: Alert and oriented to person. Knows she is in the hospital but does not recall name. Follows command Results & Data Results & Data ([facility]) Vital Signs (Past 12 Hours) Vital Signs Temp Pulse Resp BP Pulse Ox 01/09/21 07:51 36.7 C 88 18 153/80 H 98 01/09/21 03:05 36.6 C 79 18 146/85 H 94 01/08/21 23:00 60 Laboratory Results Abnormal lab results 01/09/21 Range/Units 08:29 RDW Std Deviation 50.7 H (36.4-46.3) fL RDW Coeff of Flaquito 15.1 H (11.5-14.5) % Absolute Nucleated RBC 0.03 H (0-0) K/uL (1) Fracture of temporal bone Encounter type: initial encounter Fracture type: open Qualified Code(s): S02.19XB - Other fracture of base of skull, initial encounter for open fracture (2) Fracture of occipital bone Encounter type: initial encounter Fracture type: closed Laterality: right Occipital fracture type: unspecified fracture of occiput Qualified Code(s): S02.119A - Unspecified fracture of occiput, initial encounter for closed fracture (3) Zygomatic fracture Encounter type: initial encounter Fracture type: closed Laterality: right Qualified Code(s): S02.40EA - Zygomatic fracture, right side, initial encounter for closed fracture
[2021-01-09] MEDS: SERTRALINE HCL 50 MG TABLET PO SCH (11:44)
[2021-01-10] MEDS: LEVOTHYROXINE SODIUM 88 MCG TABLET PO SCH (06:13)
[2021-01-10] MEDS: TRIAMCINOLONE ACET 0.1% OINT 15 GM TUBE TOP SCH ×2 (06:14→13:06)
[2021-01-10 09:01] VITALS: TEMP 97.5; O2SAT 97
[2021-01-10] MEDS: DONEPEZIL HCL 10 MG TAB PO SCH (09:19)
[2021-01-10] MEDS: MEMANTINE HCL 10 MG TAB PO SCH (09:19)
[2021-01-10] MEDS: DOCUSATE SODIUM 100 MG CAP PO SCH (09:19)
--- NOTE | 2021-01-10 09:50 | Discharge Summary ---
Date of Service January 10, 2021 Admission HPI Per Admitting Provider Patient is 85-year-old female with history Alzheimer's disease, surgical hypothyroidism, bullous pemphigoid presented to ER after fall. Patient is residing at [facility]. History is obtained from ER staff and chart review as patient with history of dementia. It is reported prior to arrival patient was standing and fell. Upon ER arrival it was noted patient had blood coming from right ear canal. Patient's niece is with her in ER currently reports patient's baseline is that she is oriented to person and she knows her niece and great nephew. Not oriented to time or place. Reports patient has recently been on [facility] for past several weeks patient has had increased depressed mood and has not been ambulating. Niece was visiting patient today and patient was able to ambulate with walker. Soon after she visited patient was reported to fall. Here in ER she reports pt seems to be at her baseline mental status. ER physician as well as myself spoke to patient's son, SUNG Reynoso who reports patient is DNR/DNI and they do not want any surgical intervention. Patient's son is on his way from [place] and is expected to arrive before 10pm today. ER spoke to [facility] Aydin-Dr. Retana neurosurgery who had recommended no seizure prophylaxis medication and only give antibiotics if clear otorrhea/rhinorrhea consistent with CSF. I also spoke with Dr Retana who reiterated no seizure prophylaxis or antibiotics indicated and recommended can do repeat CT imaging. Admission Exam Per Admitting Provider General: no apparent distress, thin elderly female Head: normocephalic Eyes: PERRL, EOM's appear grossly intact (pt not cooperative), conjunctiva non- injected, anicteric Face: no ecchymosis ENT: +blood in right ear canal, normal inspection external ears, nose, no discharge from nose or left ear, mucous membranes appear moist Neck: supple, trachea midline, no apparent tenderness to palpation Lungs: clear, no respiratory distress, no wheezing/rhonchi/rales CV: RRR, no murmur, no pretibial edema Abd: normal BS, soft, non-tender Ext: no cyanosis, no erythema Neuro: Alert. Pt resting with eyes closed and will open upon command. Seems to recognize niece in room with her. Will not speak to this provider but it is reported she spoke to niece prior to my exam. Pt appears disgusted with my exam however does follow some commands and cooperates with partial exam Able to raise and hold up bilateral arms, short order fry cook strength equal, able to extend and flex bilateral knees, bilateral eyebrow raise symmetric, shoulder shrug intact, face symmetric and strong, tongue midline, normal movement Skin: warm, dry Principal Diagnosis (1) Fall: (2) SAH (subarachnoid hemorrhage): (3) SDH (subdural hematoma): (4) Fracture of temporal bone: (5) Fracture of occipital bone: (6) Pneumocephalus, traumatic: (7) Zygomatic fracture Discharge Exam Constitutional + well hydrated; no acute distress Eyes PERRL, conjunctivae normal, anicteric sclerae ENMT external ear and nose normal, oropharynx normal Respiratory normal respiratory effort, lungs clear to auscultation Cardiovascular RRR S1 S2 Gastrointestinal (Abdomen) normal bowel sounds, soft, nontender, no hepatosplenomegaly Musculoskeletal No pedal edema Neurologic PERRL, EOMI, accommodation nl, no face palsy, no dysarthria Psychiatric Orientation: alert and oriented to person; + not oriented to place and + not oriented to time Discharge Data Allergies Allergy/AdvReac Type Severity Reaction Status Date / Time shellfish derived Allergy Unknown Unknown Unverified 01/06/21 18:47 Consultations 01/06/21 18:28 ED Decision to Admit Stat 01/06/21 20:32 Consult Neurology Routine 01/08/21 19:43 Consult Psychiatry Routine Ordered Studies 01/06/21 16:40 CT cervical spine wo con Stat Demineralized appearance of the bones. 5 mm anterolisthesis C3 on C4 with 2 mm anterolisthesis C7 on T1, likely degenerative. Severe multilevel facet arthrosis. Moderate to severe intervertebral disc space narrowing of the mid cervical spine with associated spondylitic spurring and small posterior disc osteophyte complex formations. No acute cervical spine fracture identified. Acute fractures of the right occipital calvarium and temporal bone with right mastoid effusion. Right posterior scalp hematoma with pneumocephalus. Interloop cranial hemorrhage redemonstrated. The right occipital fracture extends into the right occipital condyle on image 98 of series 7. Multilevel neural foraminal narrowing. Intracranial hemorrhage extends into the foramen magnum. No prevertebral edema. The lung apices are clear without pneumothorax. IMPRESSION: 1. No acute cervical spine fracture identified. 2. Anterolisthesis C3 on C4 and C7 on T1 is likely secondary to severe chronic facet arthrosis. 3. Please refer to the CT temporal bone and maxillofacial studies of same day for discussion of the acute intracranial hemorrhage, acute calvarial and facial bone fractures. Note that the right occipital fracture extends into the occipital condyle without displacement. CT facial bones wo con Stat CT MAXILLOFACIAL: Acute nondisplaced fracture involves the posterior aspect of the right zygomatic arch on image 180 series 8. No acute nasal bone fracture. The paranasal sinuses are generally clear. Pterygoid plates are intact. Mild rightward bowing and spurring of the nasal septum. Degenerative changes of the cervical spine. Acute nondisplaced fractures of the right occipital calvarium with fracture extension to the right occipital condyle. There is associated pneumocephalus with acute intracranial hemorrhage and right posterior scalp,. Intracranial hemorrhage extends into the foramen magnum. Temporal bone fracture as below. Air is noted within the left sigmoid sinus. CT TEMPORAL BONES: The left mastoid air cells and left middle ear cavity is clear. The left ossicles appear normal. The scutum appears sharp bilaterally. No cholesteatoma identified. Acute fracture of the right temporal bone is transverse to the otic capsule. The middle ear ossicles appear intact and appropriately positioned. Large amount of fluid is present within the right middle ear cavity. Large right mastoid effusion. Unremarkable semicircular canals. Course of the seventh, nerve appears normal bilaterally. IMPRESSION: 1. Acute nondisplaced fractures of the right occipital calvarium with fracture e xtension into the right occipital condyle. Associated right occipital scalp hematoma with subcutaneous emphysema, pneumocephalus and acute intracranial hemorrhage, better characterized on the head CT of same day. 2. Acute fracture of the right temporal bone, transverse to the otic capsule with appropriately positioned and intact middle ear ossicles. Large amount of fluid/hemorrhage is present within the right middle ear cavity and mastoid air cells. 3. Acute nondisplaced fracture of the right zygomatic arch. CT head/brain wo con Stat Age-related involutional changes with ex vacuo ventriculomegaly. White matter hypodensities suggest chronic microvascular ischemic disease. Cerebral vascular calcifications. Mild subarachnoid hemorrhage of the left frontal lobe. Trace subdural hematoma adjacent to the left frontal and bilateral temporal lobes measuring up to 4 mm within the right middle cranial fossa. Small acute subdural hematoma is also noted along the right parietal and occipital lobes measuring up to 6 mm with associated hydrocephalus. Subdural hemorrhage tracks along the right cerebellar tentorium into the cisterna magna. No midline shift or acute intraventricular or intraparenchymal hemorrhage. Acute fractures of the right temporal bone and right occipital calvarium with right mastoid effusion. Trace air is noted along the inner table of the skull to the left sigmoid sinus on image 5 series 5, likely within the venous system. Prior bilateral lens repair. 5.3 x 0.7 cm right posterolateral scalp hematoma. Probable fracture of the right zygomatic arch. Paranasal sinuses are generally clear. IMPRESSION: 1. Small amount of acute subarachnoid hemorrhage of the left frontal lobe with subcentimeter acute subdural hematomas adjacent to the bilateral cerebral convexities and layering along the right cerebellar tentorium. No midline shift or hydrocephalus. 2. Acute fractures of the right occipital calvarium and right temporal bone with mild associated pneumocephalus and right mastoid effusion. Please refer to the CT maxillofacial study of same day for additional findings. CT temporal bones wo con Stat 01/07/21 05:00 CT head/brain wo con Urgent A small amount of acute subarachnoid hemorrhage overlying the anterior left frontal lobe is similar to prior exam. An intermediate attenuation left subdural hematoma has increased in size. This measures 6 mm in thickness. There is no significant midline shift. There is trace acute subdural hemorrhage along anterior falx which has slightly increased. There is also a small amount of acute subdural hemorrhage overlying the lateral aspect of the right cerebellar hemisphere measuring 6 mm in thickness. This is unchanged. There is associated small amount of pneumocephalus due to overlying calvarial fractures. These fractures are unchanged and include fractures of the right temporal and occipital bones. Associated gas within the adjacent soft tissues also noted/ Trace acute hemorrhage within the occipital horn of the right lateral ventricle is noted. There is no evidence for hydrocephalus. White matter hypodensity suggests small vessel disease. Acute nondisplaced fracture of the posterior aspect of the right zygomatic arch is better depicted on prior temporal bone CT. IMPRESSION: 1. Increase in size of a small intermediate attenuation left subdural hematoma which measures 6 mm in thickness. Slight increase in acute subdural hemorrhage along anterior falx. Short-term follow-up head CT in 12 to 24 hours is recommended. 2. No significant change in the small right-sided acute subdural hematomas. No change in a small amount of acute subarachnoid hemorrhage overlying the left frontal lobe. 3. Redemonstration of right occipital and calvarial fractures with associated pneumocephalus which is unchanged. 4. Trace acute hemorrhage within the occipital horn of the right lateral ventricle. 01/08/21 07:00 CT head/brain wo con Routine The paranasal sinuses are clear. Redemonstration of the right occipital and temporal bone fractures with fluid opacification of the right middle ear cavity and right mastoid air cells. There is trace fluid within the left mastoid air cells with small amount of adjacent pneumocephalus. This favors an occult left temporal bone fracture. Right posterior scalp swelling is again noted. Small acute bilateral subdural hematomas are again noted. Left frontal subarachnoid hemorrhage/cortical contusion has slightly improved. Trace intraventricular hemorrhage within the occipital horns has slightly progressed. No midline shift. Impression: 1. A significant change in the small bilateral subdural hematomas and left frontal lobe subarachnoid hemorrhage/contusion. 2. Slight increase in the small amount of intraventricular hemorrhage within the occipital horns. 3. Right temporal/occipital bone fractures are again noted. There is also a few opacified left mastoid air cells and trace pneumocephalus adjacent to the left mastoid. This favors an occult left-sided temporal bone fracture. Hospital Course (1) Fall: (2) SAH (subarachnoid hemorrhage): (3) SDH (subdural hematoma): (4) Fracture of temporal bone: (5) Fracture of occipital bone: (6) Pneumocephalus, traumatic: (7) Zygomatic fracture: 85-year-old female with history Alzheimer's disease, surgical hypothyroidism, bullous pemphigoid presented to ER after fall from standing position at [facility]. +blood coming from right ear canal. CT head showed small amount of acute subarachnoid hemorrhage of the left frontal lobe with subcentimeter acute subdural hematomas adjacent to the bilateral cerebral convexities and layering along the right cerebellar tentorium. No midline shift or hydrocephalus. Acute fractures of the right occipital calvarium and right temporal bone with mild associated pneumocephalus and right mastoid effusion. CT maxillofacial/CT temporal bones acute nondisplaced fractures of the right occipital calvarium with fracture extension into the right occipital condyle. Associated right occipital scalp hematoma with subcutaneous emphysema, pneumocephalus and acute intracranial hemorrhage. Acute fracture of the right temporal bone, transverse to the otic capsule with appropriately positioned and intact middle ear ossicles. Large amount of fluid/hemorrhage is present within the right middle ear cavity and mastoid air cells. Acute nondisplaced fracture of the right zygomatic arch. CT C-spine: No acute cervical fracture Repeat CT head today showed significant change in the small bilateral subdural hematomas and left frontal lobe subarachnoid hemorrhage/contusion. Slight increase in the small amount of intraventricular hemorrhage within the occipital horns. Right temporal/occipital bone fractures are again noted. There is also a few opacified left mastoid air cells and trace pneumocephalus adjacent to the left mastoid. This favors an occult left-sided temporal bone fracture. ER physician and Hospitalist on admission discussed the case with neurosurgery Dr. Retana in [facility] recommended no seizure prophylaxis medication at this time. We will need to watch for otorrhea CSF to start on abx Family do not want any surgical intervention Patient had serial CT as noted above Neurologist recommends patient to get CT head in a week for reevaluation. (8) Alzheimer disease: Seems to be at baseline. Continue home medicine (9) Hypothyroidism: Continue levothyroxine Patient discharged to rehab Total Time Total Time Spent Total Time Spent (In Minutes): 40 Total Time Includes: Examination of the Patient, Discharge Planning and Medication Reconciliation Discharge Plan Discharge Items Patient Disposition: Transfer [facility] Reason For Visit: FALL Discharge Diagnosis: (1) Fall: (2) SAH (subarachnoid hemorrhage): (3) SDH (subdural hematoma): (4) Fracture of temporal bone: (5) Fracture of occipital bone: (6) Pneumocephalus, traumatic: (7) Zygomatic fracture Activity: As commented below Activity Comment: According to physical therapist Non-emergency contact: Primary Care Provider Call non-emergency contact if: you have any medication questions and your symptoms worsen Follow-up/Referrals: Sanju [Primary Care Provider] - Diet: Regular Addtl Attending Provider Instructions: Mrs. Lagunas. You were brought to the hospital after a fall. You were evaluated and noted to have multiple fractures involving different bones of your skull. You were extensively evaluated by the neurologist. You are being discharged to the nursing facility. He would need to repeat a CT head without contrast in a week. Please ensure to follow-up the results with your primary care doctor who may refer you to a neurologist if needed. Please continue to ambulate with walker and fall precautions. It was a pleasure taking care of you. Pending Studies at Discharge: No Stand-Alone Forms: My [facility] Skilled Items Patient informed of condition?: Yes DNR: Yes Discharge Level of Care: Skilled Communicable Disease: No Discharge Prognosis: Stable Lines: None Urinary Catheter: No Medications and DC Order Prescriptions: Continued levothyroxine 88 mcg tablet 88 mcg PO DAILYBB RF: 0 triamcinolone acetonide 0.1 % ointment 1 applic TOPICAL TID RF: 0 docusate sodium [Colace] 100 mg Capsule 100 mg PO BID RF: 0 sertraline 50 mg tablet 50 mg PO DAILY@1200 RF: 0 Namzaric 28-10 mg capsule,sprinkle,ER 24hr 1 cap PO HS RF: 0 Discharge Orders: Discharge Order (Routine); Ordered 01/10/21 Ordered By: Gabby Mccray Admission Data Admit Date/Time: 01/06/21 19:52 Attending Provider: Gabby Mccray I. Admit Provider: Cristhian Esquivel [facility] Prov[facility]: Cristhian Esquivel ; Edgardo Chamberlain Erica K. ; Amparo Zurita ; Lorenza Wakefield ; Bhargav Razo ; Becky Palmer ; [facility] Other Interventions: Discharge Summary Assessment (RN) Last Done: 01/10/21 12:10
[2021-01-10 12:11] VITALS: BP 176/86; PULSE 85
[2021-01-10] MEDS: SERTRALINE HCL 50 MG TABLET PO SCH (13:06)
== END 2021-01-10 14:15 | DRG 84 ==
LOC: ED 16:37 → SUATTDRO 19:52 → EDINP 19:52 → 2N 20:08

== ENCOUNTER 2021-03-19 17:37 | Inpatient (IN) ==
[2021-03-19] MEDS ORDERED: diphenhydrAMINE 50 MG/ML VIAL IV STA (18:27)
[2021-03-19] MEDS ORDERED: SODIUM CHLORIDE 0.9% 1000ML 1,000 ML IV SCH (18:30)
[2021-03-19 18:37] LABS: Basophils # (auto) 0.04 K/uL (0-0.2); Basophils % (auto) 0.3 %; Eosinophils % (auto) 11.9 %; Hematocrit (blood only) 40.1 % (37-47); Immature Granulocytes # (auto) 0.04 K/uL (0.00-0.02); Immature Granulocytes % (auto) 0.3 %; Lymphocytes # (auto) 2.15 K/uL (1.2-3.4); Mean Corpuscular Hgb Conc 32.4 g/dL (32-36); Mean Corpuscular Volume 95.7 fL (80-100); Mean Platelet Volume 9.7 fL (7.4-10.4); Monocytes # (auto) 0.96 K/uL (0.11-0.59); Monocytes % (auto) 7.6 %; Neutrophils # (auto) 7.95 K/uL (1.4-6.5); Neutrophils % (auto) 62.9 %; Platelet Count 430 K/uL (130-400); RDW Coefficient of Variation 13.6 % (11.5-14.5); RDW Standard Deviation 47.4 fL (36.4-46.3); Red Blood Count 4.19 M/uL (4.2-5.4); White Blood Count 12.64 K/uL (4.8-10.8)
[2021-03-19 18:58] LABS: Troponin I < 0.03 ng/ml (0-0.04)
[2021-03-19 19:00] LABS: Appearance Urine Clear (Clear); Bacteria Urine Automated Negative (Negative); Bilirubin Urine Negative (Negative); Blood Urine 2+ (Negative); Color Urine Yellow; Epithelial Cell Urine Auto >30 /lpf (0-5); Glucose Urine UA Negative (Negative); Ketones Urine Negative (Negative); Leukocyte Esterase Urine 2+ (Negative); Nitrite Urine Negative (Negative); Specific Gravity Urine 1.017 (1.000-1.030); Urobilinogen Urine Negative (Negative); WBC Urine Automated >30 /hpf (0-5); pH Urine 7.5 (4.5-7.5)
[2021-03-19 19:06] LABS: Alanine Aminotransferase 16 U/L (7-52); Albumin Globulin Ratio 1.3 (0.9-2); Albumin Level 3.7 gm/dl (3.4-5.0); Alkaline Phosphatase 86 U/L (34-104); Anion Gap 9 (3-11); Aspartate Aminotransferase 17 U/L (13-39); BUN Creatinine Ratio 23.2 (10-20); Bilirubin,Total 0.4 mg/dl (0.2-1.0); Blood Urea Nitrogen 19 mg/dl (6-23); Calcium 9.2 mg/dl (8.5-10.1); Carbon Dioxide 25 mmol/L (21-32); Chloride 103 mmol/L (98-107); Creatinine Clr Calc Pharmacy 41.1 ml/min; Est GFR (African American) 75.6 ml/min; Est GFR (Non-African American) 65.3 ml/min; Globulin 2.8 gm/dl (2.5-4.0); Glucose 81 mg/dl (70-99(Fasting)); Magnesium 2.2 mg/dl (1.7-2.4); Sodium 137 mmol/L (136-145); Total Protein 6.5 gm/dl (6.0-8.3)
[2021-03-19 19:11] LABS: Thyroid Stimulating Hormone 4.86 uIu/ml (0.300-4.500)
[2021-03-19 19:12] LABS: Protein Urine Trace (Negative)
--- NOTE | 2021-03-19 19:28 | CT Scan Report ---
CT SCAN OF THE BRAIN WITHOUT IV CONTRAST CLINICAL HISTORY: Generalized weakness. Change in mental status. COMPARISON STUDY: CT of the brain dated 01/21/2021. TECHNIQUE: Unenhanced axial CT scan of the brain is performed from the vertex to the skull base. A do se lowering technique was utilized adhering to the principles of ALARA. The patient was scanned twice due to significant motion artifact. CT DOSE: 1228.53 mGy.cm FINDINGS: Brain parenchyma: There is a large acute on chronic subdural hemorrhage along the left convexity with mixed attenuation blood products. This measures up to 2.9 cm in maximum dimension and effaces the fraser bjacent cortical sulci. This effaces the left lateral ventricle, and there is 6 mm of [id number] m idline shift. There are age-related involutional changes noting mild to moderate subcortical and per iventricular microangiopathic change. No parenchymal hematoma is identified. There is no evidence of acute territorial ischemia by CT criteria. Bhatti-white matter differentiation is preserved. Ventricles, sulci, cisterns: Prominent secondary to involutional change. See above. Intracranial vasculature: There is atherosclerotic calcification of the cavernous carotid and vertebr al arteries. Calvarium: The skeletal structures are osteopenic. Subacute fractures of the right temporal and occip ital bones are again noted. No depressed calvarial fracture is seen. Sinuses and mastoids: The visualized paranasal sinuses are clear. There is a right mastoid effusion. The left mastoid air cells are well pneumatized. Orbits: The bony orbits are grossly intact. There are bilateral ocular lens implants. IMPRESSION: 1. There is a large acute on chronic subdural hemorrhage along the left convexity as detailed above. 2. This effaces the subjacent cortical sulci and the left lateral ventricle with 6 mm of [id number] t midline shift. 3. There is no evidence of acute territorial ischemia by CT criteria. 4. Subacute fractures of the right occipital and temporal bones are again noted with a right mastoid effusion. ACT 112: Negative or not required by law. Electronically signed by: Alex Cline M.D. 03/19/2021 7:27 PM
--- NOTE | 2021-03-19 19:45 | XRay Report ---
SINGLE VIEW CHEST CLINICAL HISTORY: Generalized weakness. FINDINGS: 2 AP, portable, supine chest radiographs are obtained. No prior studies are available for c omparison at the time of dictation. The examination is degraded by portable technique and patient rot ation. The heart is enlarged noting atherosclerotic calcification and uncoiling of the thoracic aort a. There is elevation of the right hemidiaphragm with bibasilar scarring/atelectasis. No airspace con solidation or large pleural effusion is identified. No pneumothorax is seen. The skeletal structures are osteopenic. The bony thorax is grossly intact. IMPRESSION: 1. Cardiomegaly with no acute cardiopulmonary abnormality. 2. Uncoiled and possibly dilated thoracic aorta. ACT 112: Negative or not required by law. Electronically signed by: Alex Cline M.D. 03/19/2021 7:44 PM
[2021-03-19 19:51] LABS: T4 Free Thyroxine 1.12 ng/dl (0.61-1.60)
--- NOTE | 2021-03-19 20:04 | Emergency Department Note ---
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 The patient has a history of Alzheimer's dementia and resides at [facility]. In December 2020 the patient sustained a head injury with skull fracture and subsequent subdural and subarachnoid hemorrhage. Patient son, who is also power of attorney lawyer, stated that she is a DNR, DNI and he did not wish for any surgical intervention. The patient did not undergo any intervention at that time. There is no report of head injury recurrent fall today. The patient does have a rash that has apparently been diagnosed as bullous pemphigoid per patient's niece over the phone. History is extremely limited as there is no skilled nursing staff present and due to the patient's dementia. REVIEW OF SYSTEMS: Unable to obtain a review of systems secondary to the pa tient's mental status. ALLERGIES: see below MEDICATIONS: see below PMH: see below SOCIAL HISTORY: see below DDx: Infection, dehydration, metabolic abnormality, hypo/hyperglycemia, electrolyte disturbance, anemia, hypoxia, cardiac sources, intracerebral event, toxicologic, neurologic, as well as other pathologies. PHYSICAL EXAM: Vital signs reviewed. General: Elderly, chronically ill-appearing 85-year-old female, anxious but in no significant distress. HEENT: No scleral icterus, PERRLA, neck supple. Atraumatic. Cardiovascular: Regular rate and rhythm, no extra sounds. Pulmonary: Clear to auscultation bilaterally, normal work of breathing. Abdomen: Soft, nontender, nondistended, positive bowel sounds. Musculoskeletal: Atraumatic, no peripheral edema. Neurologic: Patient awake alert and unable to follow commands, confused. speech is clear Skin: Warm, dry, erythematous blanching type rash to the abdomen, back primarily and much less significantly to the proximal lower extremities EMERGENCY DEPARTMENT COURSE/MDM: This patient was evaluated and appeared to be in no significant distress. Patient was anxious and a bit antsy. She has not able to follow commands. She is forming words although not necessarily making sense she answers "next question" when asked how she is doing today. Head CT reveals an acute on chronic subdural hematoma with 7 mm of midline shift. Alth ough there is no reported new fall, the patient did have a significant head injury several months ago with a skull fracture and subdural hematoma. She is a DNR/DNI as confirmed with the patient's son (SUNG) and niece([place]) and they do not desire any surgical intervention or heroic measures. Laboratory work is fairly reassuring. UA appears to be contaminated. Patient will stay here at [facility] knowing that we do not have neurosurgery consultation in house. Dr. Montiel of the hospitalist service has been consulted for further management. Patient does appear to be comfortable at this time. MONITORING: An order for cardiac monitoring was placed and the patient is noted to be in a normal sinus rhythm at 86 beats per minute. RADIOLOGY: see below DISPOSITION: Admit Past Med/Surg History Medical History Alzheimer disease Bullous pemphigoid Hypothyroidism Surgical History History of thyroidectomy History of tonsillectomy and adenoidectomy Family History Other Stroke Social History (Updated 03/21/21 @ 09:41 by Azra Aguilar MD) Smoking Status: Former smoker Tobacco Type: Cigarettes and Pipe Hx Alcohol Use: No Hx Substance Use: No Preferred Language: Vincentian Communication Ability: Effective Warble Saw Operator Required: No Beliefs That Will Affect Care: None marital status: / Current Living Situation: Detention Other Information That Helps Us Care for You: No Feels Safe at Home: Yes Safety Concerns: Feels Safe At This Time Assistive Devices: Walker Allergies Allergies Allergy/AdvReac Type Severity Reaction Status Date / Time cefepime Allergy Mild itch Verified 03/20/21 01:49 shellfish derived Allergy Unknown ON Verified 03/19/21 18:32 [facility] MED LIST Home Meds Home Medications Medication Instructions Recorded Confirmed docusate sodium 100 mg capsule 100 mg PO BID 01/06/21 03/19/21 (Colace) levothyroxine 88 mcg tablet 88 mcg PO DAILYBB 01/06/21 03/19/21 memantine ER 28 mg-donepezil 10 mg 1 cap PO HS 01/06/21 03/19/21 capsule sprinkle,ext.release 24 hr (Namzaric) sertraline 50 mg tablet 50 mg PO QDL 01/06/21 03/19/21 triamcinolone acetonide 0.1 % 1 applic TOPICAL BID 01/06/21 03/19/21 topical ointment acetaminophen 325 mg tablet 650 mg PO Q4H PRN MDD 3 GRAMS/24 03/19/21 03/19/21 (Tylenol) HOURS food supplemt, lactose-reduced 1 ea PO BID 03/19/21 03/19/21 (Ensure) hydroxyzine HCl 50 mg tablet 50 mg PO QID PRN 03/19/21 03/19/21 lorazepam 0.5 mg tablet 0.5 mg PO Q6H PRN 03/19/21 03/19/21 nystatin 100,000 unit/gram topical 1 applic TOPICAL BID PRN 03/19/21 03/19/21 powder polyethylene glycol 3350 17 17 g PO QDL PRN 03/19/21 03/19/21 gram/dose oral powder (Miralax) sennosides 8.6 mg-docusate sodium 1 tab-cap PO QDL PRN 03/19/21 03/19/21 50 mg tablet (Senna-S) Results & Data (ED) Vital Signs Vital Signs - 24 hr 03/19/21 18:06 03/19/21 18:19 03/19/21 19:38 Temperature 36.7 C Temperature Source Oral Pulse Rate 79 Pulse Rate [Apical] 86 Pulse Rhythm [Apical] Respiratory Rate 20 17 Respiratory Effort / Characteristics Respiratory Depth Respiratory Pattern Blood Pressure 173/96 H Blood Pressure [Left Arm] 172/96 H Blood Pressure Mean 121 Blood Pressure Mean [Left Arm] 121 Blood Pressure Position Lying Blood Pressure Position [Left Arm] Pulse Oximetry 94 95 97 Oxygen Delivery Method Room Air Room Air Sepsis Recent Fever Within 48 Hours No Sepsis New/Unexplained Change in Mental Status No Sepsis Action Taken by Nursing No Action Required 03/19/21 21:00 03/19/21 22:33 03/19/21 23:19 Temperature Temperature Source Pulse Rate Pulse Rate [Apical] 88 89 Pulse Rhythm [Apical] Respiratory Rate 16 16 Respiratory Effort / Characteristics Respiratory Depth Respiratory Pattern Blood Pressure Blood Pressure [Left Arm] 142/87 H 144/101 H 154/80 H Blood Pressure Mean Blood Pressure Mean [Left Arm] 105 115 104 Blood Pressure Position Blood Pressure Position [Left Arm] Lying Pulse Oximetry 96 95 Oxygen Delivery Method Sepsis Recent Fever Within 48 Hours Sepsis New/Unexplained Change in Mental Status Sepsis Action Taken by Nursing 03/19/21 23:38 03/20/21 00:35 Temperature Temperature Source Pulse Rate Pulse Rate [Apical] 94 H 94 H Pulse Rhythm [Apical] Regular Regular Respiratory Rate 18 18 Respiratory Effort / Characteristics Non-Labored Spontaneous Non-Labored Spontaneous Respiratory Depth Normal Normal Respiratory Pattern Regular Regular Blood Pressure Blood Pressure [Left Arm] 167/84 H 143/104 H Blood Pressure Mean Blood Pressure Mean [Left Arm] 111 117 Blood Pressure Position Blood Pressure Position [Left Arm] Lying Sitting Pulse Oximetry 93 94 Oxygen Delivery Method Room Air Room Air Sepsis Recent Fever Within 48 Hours Sepsis New/Unexplained Change in Mental Status Sepsis Action Taken by Detention Medications Current Medication List: was personally reviewed by me Laboratory Data Attestation: I reviewed the patient's lab results. Result diagrams: 03/21/21 08:34 03/20/21 06:56 Lab Results 03/19/21 03/19/21 03/19/21 Range/Units 18:15 18:15 18:15 WBC 12.64 H (4.8-10.8) K/uL RBC 4.19 L (4.2-5.4) M/uL Hgb 13.0 (12.0-16.0) g/dL Hct 40.1 (37-47) % MCV 95.7 (80-100) fL MCH 31.0 (25-34) pg MCHC 32.4 (32-36) g/dL RDW Std Deviation 47.4 H (36.4-46.3) fL RDW Coeff of Flaquito 13.6 (11.5-14.5) % Plt Count 430 H (130-400) K/uL MPV 9.7 (7.4-10.4) fL Immature Gran % (Auto) 0.3 % Neut % (Auto) 62.9 % Lymph % (Auto) 17.0 % Jay % (Auto) 7.6 % Eos % (Auto) 11.9 % Baso % (Auto) 0.3 % Neut # (Auto) 7.95 H (1.4-6.5) K/uL Lymph # (Auto) 2.15 (1.2-3.4) K/uL Jay # (Auto) 0.96 H (0.11-0.59) K/uL Eos # (Auto) 1.50 H (0-0.5) K/uL Baso # (Auto) 0.04 (0-0.2) K/uL Immature Gran # (Auto) 0.04 H (0.00-0.02) K/uL Sodium 137 (136-145) mmol/L Potassium 4.0 (3.5-5.1) mmol/L Chloride 103 (98-107) mmol/L Carbon Dioxide 25 (21-32) mmol/L Anion Gap 9 (3-11) BUN 19 (6-23) mg/dl Creatinine 0.82 (0.6-1.2) mg/dl Est Cr Clr Drug Dosing 41.1 ml/min Est GFR ( Amer) 75.6 ml/min Est GFR (Non-Af Amer) 65.3 ml/min BUN/Creatinine Ratio 23.2 H (10-20) Glucose 81 (70-99(Fasting)) mg/dl Lactate (0.4-2.0) mmol/L Calcium 9.2 (8.5-10.1) mg/dl Magnesium 2.2 (1.7-2.4) mg/dl Total Bilirubin 0.4 (0.2-1.0) mg/dl AST 17 (13-39) U/L ALT 16 (7-52) U/L Alkaline Phosphatase 86 (34-104) U/L Troponin I < 0.03 (0-0.04) ng/ml Total Protein 6.5 (6.0-8.3) gm/dl Albumin 3.7 (3.4-5.0) gm/dl Globulin 2.8 (2.5-4.0) gm/dl Albumin/Globulin Ratio 1.3 (0.9-2) TSH 4.860 H (0.300-4.500) uIu/ml Free T4 1.12 (0.61-1.60) ng/dl Urine Color Urine Appearance (Clear) Urine pH (4.5-7.5) Ur Specific Ranger (1.000-1.030) Urine Protein (Negative) Urine Glucose (UA) (Negative) Urine Ketones (Negative) Urine Blood (Negative) Urine Nitrite (Negative) Urine Bilirubin (Negative) Urine Urobilinogen (Negative) Ur Leukocyte Esterase (Negative) Urine WBC (Auto) (0-5) /hpf Urine RBC (Auto) (0-4) /hpf U Hyaline Cast (Auto) (0-5) /lpf U Epithel Cells (Auto) (0-5) /lpf Urine Bacteria (Auto) (Negative) SARS-CoV-2, RNA, NAAT (NEGATIVE) 03/19/21 03/19/21 03/19/21 Range/Units 18:25 18:45 19:00 WBC (4.8-10.8) K/uL RBC (4.2-5.4) M/uL Hgb (12.0-16.0) g/dL Hct (37-47) % MCV (80-100) fL MCH (25-34) pg MCHC (32-36) g/dL RDW Std Deviation (36.4-46.3) fL RDW Coeff of Flaquito (11.5-14.5) % Plt Count (130-400) K/uL MPV (7.4-10.4) fL Immature Gran % (Auto) % Neut % (Auto) % Lymph % (Auto) % Jay % (Auto) % Eos % (Auto) % Baso % (Auto) % Neut # (Auto) (1.4-6.5) K/uL Lymph # (Auto) (1.2-3.4) K/uL Jay # (Auto) (0.11-0.59) K/uL Eos # (Auto) (0-0.5) K/uL Baso # (Auto) (0-0.2) K/uL Immature Gran # (Auto) (0.00-0.02) K/uL Sodium (136-145) mmol/L Potassium (3.5-5.1) mmol/L Chloride (98-107) mmol/L Carbon Dioxide (21-32) mmol/L Anion Gap (3-11) BUN (6-23) mg/dl Creatinine (0.6-1.2) mg/dl Est Cr Clr Drug Dosing ml/min Est GFR ( Amer) ml/min Est GFR (Non-Af Amer) ml/min BUN/Creatinine Ratio (10-20) Glucose (70-99(Fasting)) mg/dl Lactate 1.2 (0.4-2.0) mmol/L Calcium (8.5-10.1) mg/dl Magnesium (1.7-2.4) mg/dl Total Bilirubin (0.2-1.0) mg/dl AST (13-39) U/L ALT (7-52) U/L Alkaline Phosphatase (34-104) U/L Troponin I (0-0.04) ng/ml Total Protein (6.0-8.3) gm/dl Albumin (3.4-5.0) gm/dl Globulin (2.5-4.0) gm/dl Albumin/Globulin Ratio (0.9-2) TSH (0.300-4.500) uIu/ml Free T4 (0.61-1.60) ng/dl Urine Color Yellow Urine Appearance Clear (Clear) Urine pH 7.5 (4.5-7.5) Ur Specific Ranger 1.017 (1.000-1.030) Urine Protein Trace H (Negative) Urine Glucose (UA) Negative (Negative) Urine Ketones Negative (Negative) Urine Blood 2+ H (Negative) Urine Nitrite Negative (Negative) Urine Bilirubin Negative (Negative) Urine Urobilinogen Negative (Negative) Ur Leukocyte Esterase 2+ H (Negative) Urine WBC (Auto) >30 H (0-5) /hpf Urine RBC (Auto) 10-30 H (0-4) /hpf U Hyaline Cast (Auto) 5-10 H (0-5) /lpf U Epithel Cells (Auto) >30 H (0-5) /lpf Urine Bacteria (Auto) Negative (Negative) SARS-CoV-2, RNA, NAAT NEGATIVE (NEGATIVE) Administered Medications Dexamethasone (Dexamethasone 1 Mg Tab) 2 mg PO BID [facility] Stop: 04/19/21 20:59 Last Admin: 03/21/21 09:34 Dose: 2 mg Documented by: [id number] Admin: 03/20/21 21:52 Dose: 2 mg Documented by: [id number] Docusate Sodium (Docusate Sodium 100 Mg Cap) 100 mg PO BID@1200,1700 [facility] Stop: 04/19/21 11:59 Last Admin: 03/20/21 17:25 Dose: Not Given Documented by: [id number] Admin: 03/20/21 12:15 Dose: 100 mg Documented by: [id number] Donepezil HCl (Donepezil Hcl 10 Mg Tab) 10 mg PO [facility] Stop: 04/19/21 20:59 Last Admin: 03/20/21 21:51 Dose: 10 mg Documented by: [id number] Aztreonam 1,000 mg/ Dextrose 110 mls @ 110 mls/hr IV Q8H [facility]; Protocol Stop: 03/21/21 23:59 Last Infusion: 03/21/21 09:31 Dose: 0 mls/hr Documented by: [id number] Admin: 03/21/21 05:58 Dose: 110 mls/hr Documented by: [id number] Infusion: 03/20/21 23:28 Dose: 0 mls/hr Documented by: [id number] Admin: 03/20/21 21:54 Dose: 110 mls/hr Documented by: [id number] Infusion: 03/20/21 16:08 Dose: 0 mls/hr Documented by: [id number] Admin: 03/20/21 15:07 Dose: 110 mls/hr Documented by: [id number] Levothyroxine Sodium (Levothyroxine Sodium 88 Mcg Tablet) [facility]: 04/19/21 06:29 Last Admin: 03/21/21 06:00 Dose: 88 mcg Documented by: [id number] Admin: 03/20/21 06:16 Dose: 88 mcg Documented by: [id number] Lisinopril (Lisinopril 2.5 Mg Tab) 2.5 mg PO [facility] Stop: 04/19/21 20:59 Last Admin: 03/20/21 22:29 Dose: Not Given Documented by: [id number] Loratadine ([facility] 10 Mg Tab) [facility] [place] Stop: 04/19/21 08:59 Last Admin: 03/21/21 09:41 Dose: 10 mg Documented by: [id number] Admin: 03/21/21 09:35 Dose: 10 mg Documented by: [id number] Admin: 03/20/21 08:29 Dose: 10 mg Documented by: [id number] Memantine (Memantine Hcl 10 Mg Tab) 10 mg PO BID [facility] Stop: 04/19/21 08:59 Last Admin: 03/21/21 09:34 Dose: 10 mg Documented by: [id number] Admin: 03/20/21 21:52 Dose: 10 mg Documented by: [id number] Admin: 03/20/21 12:15 Dose: 10 mg Documented by: [id number] Sertraline HCl (Sertraline Hcl 50 Mg Tablet) 50 mg PO QDL [facility] Stop: 04/19/21 11:29 Last Admin: 03/20/21 12:15 Dose: 50 mg Documented by: [id number] Triamcinolone Acetonide (Triamcinolone Acet 0.1% Oint 15 Gm Tube) 1 appln TOP BID@0700,2000 [facility] Stop: 04/19/21 06:59 Last Admin: 03/21/21 09:34 Dose: 1 appln Documented by: [id number] Admin: 03/20/21 21:53 Dose: 1 appln Documented by: [id number] Admin: 03/20/21 08:28 Dose: 1 appln Documented by: [id number] Discontinued Medications Acetaminophen (Acetaminophen 325 Mg Tab) 650 mg PO NOW STA Stop: 03/20/21 01:49 Last Admin: 03/20/21 01:55 Dose: 650 mg Documented by: [id number] Diphenhydramine HCl (Diphenhydramine 50 Mg/Ml Vial) 25 mg IV NOW STA Stop: 03/19/21 18:28 Last Admin: 03/19/21 18:38 Dose: 25 mg Documented by: [id number] Hydralazine HCl (Hydralazine Hcl 20 Mg/Ml Vial) 5 mg IV NOW STA Stop: 03/20/21 23:02 Last Admin: 03/20/21 23:36 Dose: 5 mg Documented by: [id number] Sodium Chloride (Nss 1000ml) 1,000 mls @ 125 mls/hr IV .Q8H [facility] Stop: 03/20/21 02:29 Last Infusion: 03/20/21 03:27 Dose: 0 mls/hr Documented by: [id number] Admin: 03/19/21 18:39 Dose: 125 mls/hr Documented by: [id number] Cefepime HCl (Maxipime) 2,000 mg in 20 mls @ 5 mls/min IV NOW STA; Protocol Stop: 03/19/21 23:19 Last Admin: 03/19/21 23:35 Dose: 5 mls/min Documented by: [id number] Sodium Chloride (Nss 1000ml) 1,000 mls @ 50 mls/hr IV .Q20H ONE Stop: 03/20/21 21:47 Last Infusion: 03/20/21 14:44 Dose: 0 mls/hr Documented by: [id number] Admin: 03/20/21 01:55 Dose: 50 mls/hr Documented by: [id number] Aztreonam 1,000 mg/ Dextrose 110 mls @ 100 mls/hr IV NOW STA; Protocol Stop: 03/20/21 02:54 Last Infusion: 03/20/21 06:07 Dose: 0 mls/hr Documented by: [id number] Admin: 03/20/21 05:00 Dose: 100 mls/hr Documented by: [id number] Lisinopril (Lisinopril 2.5 Mg Tab) 2.5 mg PO ONE ONE Stop: 03/19/21 23:46 Last Admin: 03/20/21 00:12 Dose: Not Given Documented by: [id number] Loratadine (Loratadine 10 Mg Tab) 10 mg PO NOW ONE Stop: 03/20/21 01:49 Last Admin: 03/20/21 01:55 Dose: 10 mg Documented by: [id number] Methylprednisolone (Methylprednisolone 40 Mg/Ml Vial) 40 mg IV NOW STA Stop: 03/19/21 18:28 Last Admin: 03/19/21 18:38 Dose: 40 mg Documented by: [id number] Miscellaneous (Namzaric - Order Awaiting Action) 1 ea N/A QS [facility] Stop: 04/19/21 07:59 Last Admin: 03/20/21 07:51 Dose: Not Given Documented by: [id number] Imaging Data Radiologist's Impression: Chest X-Ray 03/19/21 18:19 SINGLE VIEW CHEST CLINICAL HISTORY: Generalized weakness. FINDINGS: 2 AP, portable, supine chest radiographs are obtained. No prior studies are available for comparison at the time of dictation. The examination is degraded by portable technique and patient rotation. The heart is enlarged noting atherosclerotic calcification and uncoiling of the thoracic aorta. There is elevation of the right hemidiaphragm with bibasilar scarring/atelectasis. No airspace consolidation or large pleural effusion is identified. No pneumothorax is seen. The skeletal structures are osteopenic. The bony thorax is grossly intact. IMPRESSION: 1. Cardiomegaly with no acute cardiopulmonary abnormality. 2. Uncoiled and possibly dilated thoracic aorta. ACT 112: Negative or not required by law. Electronically signed by: Alex Cline M.D. 03/19/2021 7:[address] 03/19/21 18:19 CT SCAN OF THE BRAIN WITHOUT IV CONTRAST CLINICAL HISTORY: Generalized weakness. Change in mental status. COMPARISON STUDY: CT of the brain dated 01/21/2021. TECHNIQUE: Unenhanced axial CT scan of the brain is performed from the vertex to the skull base. A dose lowering technique was utilized adhering to the principles of ALARA. The patient was scanned twice due to significant motion artifact. CT DOSE: 1228.53 mGy.cm FINDINGS: Brain parenchyma: There is a large acute on chronic subdural hemorrhage along the left convexity with mixed attenuation blood products. This measures up to 2.9 cm in maximum dimension and effaces the subjacent cortical sulci. This effaces the left lateral ventricle, and there is 6 mm of [id number] midline shift. There are age-related involutional changes noting mild to moderate subco rtical and periventricular microangiopathic change. No parenchymal hematoma is identified. There is no evidence of acute territorial ischemia by CT criteria. Bhatti-white matter differentiation is preserved. Ventricles, sulci, cisterns: Prominent secondary to involutional change. See above. Intracranial vasculature: There is atherosclerotic calcification of the cavernous carotid and vertebral arteries. Calvarium: The skeletal structures are osteopenic. Subacute fractures of the right temporal and occipital bones are again noted. No depressed calvarial fracture is seen. Sinuses and mastoids: The visualized paranasal sinuses are clear. There is a right mastoid effusion. The left mastoid air cells are well pneumatized. Orbits: The bony orbits are grossly intact. There are bilateral ocular lens implants. IMPRESSION: 1. There is a large acute on chronic subdural hemorrhage along the left convexity as detailed above. 2. This effaces the subjacent cortical sulci and the left lateral ventricle with 6 mm of [id number] midline shift. 3. There is no evidence of acute territorial ischemia by CT criteria. 4. Subacute fractures of the right occipital and temporal bones are again noted with a right mastoid effusion. ACT 112: Negative or not required by law. Electronically signed by: Alex Cline M.D. 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
[2021-03-19] MEDS ORDERED: ACETAMINOPHEN 325 MG TAB PO PRN (21:00)
[2021-03-19] MEDS ORDERED: CEFEPIME 2,000 MG/20 ML VIAL IV STA (23:16)
--- NOTE | 2021-03-19 23:17 | History & Physical Report ---
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 Hypertension ([facility]) currently not on maintenance meds Complicated UTI, no sepsis for now Dementia Medical telemetry [facility] neurochecks every [address] head after 6 hours Contact [facility] for once imaging results back to ask for recommendations regarding duration of inpatient monitoring. Initiate lisinopril Urine CS, cefepime DVT prophylaxis. SCDs Re: Traumatic ICH DNR as per patient's prior directives as per son/POA, Mr. Edgardo Lagunas. He requests updates from providers through [phone]. Family will consider hospice if brain bleed/shift progresses as per discussion with son. Text document was generated using [employer] voice recognition software. It may contain grammatical or spelling errors. Kindly contact undersigned for clarification of any documentation item in question. History of Present Illness Chief Complaint: Generalized body pain as per records Primary Care Provider: Roevilledaija Arce History obtained from patient, family, and records. Unable to obtain history from patient secondary to dementia. Medical history significant for dementia, hypertension, history traumatic subdural hematoma/subarachnoid hemorrhage, postsurgical hypothyroidism, mood disorder, bullous pemphigoid, past tobacco abuse Last confinement December 2020 traumatic subdural hematoma and subarachnoid hemorrhage secondary to mechanical fall. Patient family refused neurosurgical intervention. Patient subsequently discharged to SNF, Patient complains of generalized body pain at intermediate today. No recollection of recent trauma or falls as per family. Patient brought to the ER for evaluation. Medical History as above Surgical History : Tonsillectomy/adenoidectomy, thyroidectomy Family History : Stroke Personal/Social history : Past tobacco abuse, no EtOH intake, intermediate resident Allergies Allergy/AdvReac Type Severity Reaction Status Date / Time cefepime Allergy Mild itch Verified 03/20/21 01:49 shellfish derived Allergy Unknown ON Verified 03/19/21 18:32 [facility] MED LIST Home Medications Medication Instructions Recorded Confirmed Type docusate sodium 100 mg capsule 100 mg PO BID 01/06/21 03/19/21 History (Colace) levothyroxine 88 mcg tablet 88 mcg PO DAILYBB 01/06/21 03/19/21 History memantine ER 28 mg-donepezil 10 mg 1 cap PO HS 01/06/21 03/19/21 History capsule sprinkle,ext.release 24 hr (Namzaric) sertraline 50 mg tablet 50 mg PO QDL 01/06/21 03/19/21 History triamcinolone acetonide 0.1 % 1 applic TOPICAL BID 01/06/21 03/19/21 History topical ointment acetaminophen 325 mg tablet 650 mg PO Q4H PRN MDD 3 GRAMS/24 03/19/21 03/19/21 History (Tylenol) HOURS food supplemt, lactose-reduced 1 ea PO BID 03/19/21 03/19/21 History (Ensure) hydroxyzine HCl 50 mg tablet 50 mg PO QID PRN 03/19/21 03/19/21 History lorazepam 0.5 mg tablet 0.5 mg PO Q6H PRN 03/19/21 03/19/21 History nystatin 100,000 unit/gram topical 1 applic TOPICAL BID PRN 03/19/21 03/19/21 History powder polyethylene glycol 3350 17 17 g PO QDL PRN 03/19/21 03/19/21 History gram/dose oral powder (Miralax) sennosides 8.6 mg-docusate sodium 1 tab-cap PO QDL PRN 03/19/21 03/19/21 History 50 mg tablet (Senna-S) Past Med/Surg History Medical History Alzheimer disease Bullous pemphigoid Hypothyroidism Surgical History History of thyroidectomy History of tonsillectomy and adenoidectomy Family History Other Stroke Social History Smoking Status: Never smoker Tobacco Type: Cigarettes and Pipe Hx Alcohol Use: No Hx Substance Use: No Preferred Language: Swazi Communication Ability: Impaired 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 Beliefs That Will Affect Care: None marital status: / Current Living Situation: Custodial Other Information That Helps Us Care for You: No Feels Safe at Home: Yes Safety Concerns: Feels Safe At This Time Assistive Devices: Walker Review of Systems Review of Systems: Could not be reliably obtained secondary to dementia Physical Exam Physical Exam: GENERAL: Demented, no respiratory distress, lying on the right lateral decubitus position SKIN: Normal color, warm HEENT: [place] palpebral conjunctivae, no ptosis, dry buccal mucosa NECK : Supple, no tenderness CHEST : Decreased breath sounds, no tenderness HEART : RRR, no obvious murmurs ABDOMEN: Some distention, nontender EXTREMITIES : No LE swelling/tenderness, no other conspicuous deformities noted NEUROLOGIC : Demented, no facial asymmetry, gait and stance not assessed Results & Data Results & Data ([facility]) Vital Signs (Past 12 Hours) Vital Signs Temp Pulse Pulse Resp BP BP Pulse Ox 03/19/21 22:33 89 16 144/101 H 95 03/19/21 21:00 88 16 142/87 H 96 03/19/21 19:38 86 17 172/96 H 97 03/19/21 18:19 95 03/19/21 18:06 36.7 C 79 20 173/96 H 94 Laboratory Results Laboratory Results WBC 12.64 K/uL (4.8-10.8) H 03/19/21 18:15 RBC 4.19 M/uL (4.2-5.4) L 03/19/21 18:15 Hgb 13.0 g/dL (12.0-16.0) 03/19/21 18:15 Hct 40.1 % (37-47) 03/19/21 18:15 MCV 95.7 fL (80-100) 03/19/21 18:15 MCH 31.0 pg (25-34) 03/19/21 18:15 MCHC 32.4 g/dL (32-36) 03/19/21 18:15 RDW Std Deviation 47.4 fL (36.4-46.3) H 03/19/21 18:15 RDW Coeff of [place] 13.6 % (11.5-14.5) 03/19/21 18:15 Plt Count 430 K/uL (130-400) H 03/19/21 18:15 MPV 9.7 fL (7.4-10.4) 03/19/21 18:15 Immature Gran % (Auto) 0.3 % 03/19/21 18:15 Neut % (Auto) 62.9 % 03/19/21 18:15 Lymph % (Auto) 17.0 % 03/19/21 18:15 [place] % (Auto) 7.6 % 03/19/21 18:15 Eos % (Auto) 11.9 % 03/19/21 18:15 Baso % (Auto) 0.3 % 03/19/21 18:15 Neut # (Auto) 7.95 K/uL (1.4-6.5) H 03/19/21 18:15 Lymph # (Auto) 2.15 K/uL (1.2-3.4) 03/19/21 18:15 [place] # (Auto) 0.96 K/uL (0.11-0.59) H 03/19/21 18:15 Eos # (Auto) 1.50 K/uL (0-0.5) H 03/19/21 18:15 Baso # (Auto) 0.04 K/uL (0-0.2) 03/19/21 18:15 Immature Gran # (Auto) 0.04 K/uL (0.00-0.02) H 03/19/21 18:15 Sodium 137 mmol/L (136-145) 03/19/21 18:15 Potassium 4.0 mmol/L (3.5-5.1) 03/19/21 18:15 Chloride 103 mmol/L (98-107) 03/19/21 18:15 Carbon Dioxide 25 mmol/L (21-32) 03/19/21 18:15 Anion Gap 9 (3-11) 03/19/21 18:15 BUN 19 mg/dl (6-23) 03/19/21 18:15 Creatinine 0.82 mg/dl (0.6-1.2) 03/19/21 18:15 Est Cr Clr Drug Dosing 41.1 ml/min 03/19/21 18:15 Est GFR ( Amer) 75.6 ml/min 03/19/21 18:15 Est GFR (Non-Af Amer) 65.3 ml/min 03/19/21 18:15 BUN/Creatinine Ratio 23.2 (10-20) H 03/19/21 18:15 Glucose 81 mg/dl (70-99(Fasting)) 03/19/21 18:15 Lactate 1.2 mmol/L (0.4-2.0) 03/19/21 18:25 Calcium 9.2 mg/dl (8.5-10.1) 03/19/21 18:15 Magnesium 2.2 mg/dl (1.7-2.4) 03/19/21 18:15 Total Bilirubin 0.4 mg/dl (0.2-1.0) 03/19/21 18:15 AST 17 U/L (13-39) 03/19/21 18:15 ALT 16 U/L (7-52) 03/19/21 18:15 Alkaline Phosphatase 86 U/L (34-104) 03/19/21 18:15 Troponin I < 0.03 ng/ml (0-0.04) 03/19/21 18:15 Total Protein 6.5 gm/dl (6.0-8.3) 03/19/21 18:15 Albumin 3.7 gm/dl (3.4-5.0) 03/19/21 18:15 Globulin 2.8 gm/dl (2.5-4.0) 03/19/21 18:15 Albumin/Globulin Ratio 1.3 (0.9-2) 03/19/21 18:15 TSH 4.860 uIu/ml (0.300-4.500) H 03/19/21 18:15 Free T4 1.12 ng/dl (0.61-1.60) 03/19/21 18:15 Urine Color Yellow 03/19/21 18:45 Urine Appearance Clear (Clear) 03/19/21 18:45 Urine pH 7.5 (4.5-7.5) 03/19/21 18:45 Ur Specific [place] 1.017 (1.000-1.030) 03/19/21 18:45 Urine Protein Trace (Negative) H 03/19/21 18:45 Urine Glucose (UA) Negative (Negative) 03/19/21 18:45 Urine Ketones Negative (Negative) 03/19/21 18:45 Urine Blood 2+ (Negative) H 03/19/21 18:45 Urine Nitrite Negative (Negative) 03/19/21 18:45 Urine Bilirubin Negative (Negative) 03/19/21 18:45 Urine Urobilinogen Negative (Negative) 03/19/21 18:45 Ur Leukocyte Esterase 2+ (Negative) H 03/19/21 18:45 Urine WBC (Auto) >30 /hpf (0-5) H 03/19/21 18:45 Urine RBC (Auto) 10-30 /hpf (0-4) H 03/19/21 18:45 U Hyaline Cast (Auto) 5-10 /lpf (0-5) H 03/19/21 18:45 U Epithel Cells (Auto) >30 /lpf (0-5) H 03/19/21 18:45 Urine Bacteria (Auto) Negative (Negative) 03/19/21 18:45 SARS-CoV-2, RNA, NAAT NEGATIVE (NEGATIVE) 03/19/21 19:00 Impressions Chest X-Ray 03/19/21 18:19 SINGLE VIEW CHEST CLINICAL HISTORY: Generalized weakness. FINDINGS: 2 AP, portable, supine chest radiographs are obtained. No prior studies are available for comparison at the time of dictation. The examination is degraded by portable technique and patient rotation. The heart is enlarged noting atherosclerotic calcification and uncoiling of the thoracic aorta. There is elevation of the right hemidiaphragm with bibasilar scarring/atelectasis. No airspace consolidation or large pleural effusion is identified. No pneumothorax is seen. The skeletal structures are osteopenic. The bony thorax is grossly intact. IMPRESSION: 1. Cardiomegaly with no acute cardiopulmonary abnormality. 2. Uncoiled and possibly dilated thoracic aorta. ACT 112: Negative or not required by law. Electronically signed by: Alex Cline M.D. 03/19/2021 7:[address] 03/19/21 18:19 CT SCAN OF THE BRAIN WITHOUT IV CONTRAST CLINICAL HISTORY: Generalized weakness. Change in mental status. COMPARISON STUDY: CT of the brain dated 01/21/2021. TECHNIQUE: Unenhanced axial CT scan of the brain is performed from the vertex to the skull base. A dose lowering technique was utilized adhering to the principles of ALARA. The patient was scanned twice due to significant motion artifact. CT DOSE: 1228.53 mGy.cm FINDINGS: Brain parenchyma: There is a large acute on chronic subdural hemorrhage along the left convexity with mixed attenuation blood products. This measures up to 2.9 cm in maximum dimension and effaces the subjacent cortical sulci. This effaces the left lateral ventricle, and there is 6 mm of [id number] midline shift. There are age-related involutional changes noting mild to moderate subcortical and periventricular microangiopathic change. No parenchymal hematoma is identified. There is no evidence of acute territorial ischemia by CT criteria. Bhatti-white matter differentiation is preserved. Ventricles, sulci, cisterns: Prominent secondary to involutional change. See above. Intracranial vasculature: There is atherosclerotic calcification of the cavernous carotid and vertebral arteries. Calvarium: The skeletal structures are osteopenic. Subacute fractures of the right temporal and occipital bones are again noted. No depressed calvarial fracture is seen. Sinuses and mastoids: The visualized paranasal sinuses are clear. There is a right mastoid effusion. The left mastoid air cells are well pneumatized. Orbits: The bony orbits are grossly intact. There are bilateral ocular lens implants. IMPRESSION: 1. There is a large acute on chronic subdural hemorrhage along the left convexity as detailed above. 2. This effaces the subjacent cortical sulci and the left lateral ventricle with 6 mm of [id number]-czqmw midline shift. 3. There is no evidence of acute territorial ischemia by CT criteria. 4. Subacute fractures of the right occipital and temporal bones are again noted with a right mastoid effusion. ACT 112: Negative or not required by law. Electronically signed by: Alex Cline M.D. 03/19/2021 7:27 PM
[2021-03-19] MEDS ORDERED: lisinopril 2.5 MG TAB PO ONE (23:45)
[2021-03-20] MEDS ORDERED: POLYETHYLENE (MIRALAX) 17 GM PACK PO PRN (01:48)
[2021-03-20] MEDS ORDERED: SODIUM CHLORIDE 0.9% 1000ML 1,000 ML IV ONE (01:48)
[2021-03-20] MEDS ORDERED: PROMETHAZINE HCL 6.25 MG in SODIUM CHLORIDE 0.9% 50 ML IV PRN (01:48)
[2021-03-20] MEDS ORDERED: DOCUSATE SODIUM/SENNA 50/8.6MG TAB PO PRN (01:48)
[2021-03-20] MEDS ORDERED: ACETAMINOPHEN 325 MG TAB PO STA (01:48)
[2021-03-20] MEDS ORDERED: LORATADINE 10 MG TAB PO ONE (01:48)
[2021-03-20] MEDS ORDERED: ACETAMINOPHEN 325 MG TAB PO PRN (01:48)
[2021-03-20] MEDS ORDERED: AZTREONAM 1,000 MG in DEXTROSE 5% 100 ML IV STA (01:49)
[2021-03-20] MEDS ORDERED: INFLUENZA VACCINE HIGH DOSE PF 65+ 0.7 ML SYR IM ONE (04:45)
[2021-03-20] MEDS ORDERED: PNEUMOCOCCAL POLYSACCHARIDES 25 MCG/0.5 ML VIAL/SYR IM ONE (04:45)
[2021-03-20] MEDS ORDERED: AZTREONAM CONSULT ACTIVE PRN (05:25)
[2021-03-20 05:33] LABS: Basophils # (auto) 0.03 K/uL (0-0.2); Basophils % (auto) 0.3 %; Eosinophils # (auto) 0.36 K/uL (0-0.5); Hematocrit (blood only) 41.7 % (37-47); Hemoglobin 13.6 g/dL (12.0-16.0); Immature Granulocytes # (auto) 0.04 K/uL (0.00-0.02); Immature Granulocytes % (auto) 0.3 %; Lymphocytes # (auto) 1.72 K/uL (1.2-3.4); Lymphocytes % (auto) 14.6 %; Mean Corpuscular Hemoglobin 31.1 pg (25-34); Mean Corpuscular Hgb Conc 32.6 g/dL (32-36); Mean Corpuscular Volume 95.4 fL (80-100); Mean Platelet Volume 10.7 fL (7.4-10.4); Monocytes # (auto) 0.76 K/uL (0.11-0.59); Monocytes % (auto) 6.4 %; Neutrophils # (auto) 8.91 K/uL (1.4-6.5); Neutrophils % (auto) 75.4 %; Platelet Count 402 K/uL (130-400); RDW Coefficient of Variation 13.3 % (11.5-14.5); RDW Standard Deviation 46.7 fL (36.4-46.3); Red Blood Count 4.37 M/uL (4.2-5.4); White Blood Count 11.82 K/uL (4.8-10.8)
[2021-03-20 06:09] LABS: BUN Creatinine Ratio 21.8 (10-20); Blood Urea Nitrogen 17 mg/dl (6-23); Calcium 8.9 mg/dl (8.5-10.1); Carbon Dioxide 25 mmol/L (21-32); Chloride 105 mmol/L (98-107); Creatinine Clr Calc Pharmacy 43.2 ml/min; Est GFR (African American) 80.3 ml/min; Est GFR (Non-African American) 69.3 ml/min; Glucose 104 mg/dl (70-99(Fasting))
[2021-03-20] MEDS: LEVOTHYROXINE SODIUM 88 MCG TABLET PO SCH (06:16)
--- NOTE | 2021-03-20 07:16 | CT Scan Report ---
HEAD CT NONCONTRAST CT DOSE: 729.78 mGycm HISTORY: Subdural hematoma. Follow-up. TECHNIQUE: Multiaxial CT images of the head were performed without the use of intravenous contrast. A utomated exposure control was utilized for this study. A dose lowering technique was utilized adheri ng to the principles of ALARA. Comparison: Head CT 03/19/2021. Findings: Small right mastoid effusion, unchanged. The paranasal sinuses and left mastoid air cells a re clear. Nondisplaced fracture within the right occipital and temporal bone again noted. There is ag ain noted a large left-sided acute on chronic subdural hematoma. This measures up to 2.8 cm in thickn ess. The right midline shift is similar to the prior study and measures approximately [address] along the left cerebral hemisphere and left ventricle, unchanged. Atrophy and microvascular ischem ic changes are again noted. Impression: 1. Redemonstration of the acute on chronic left-sided subdural hematoma. This measures up to 2.8 cm i n thickness and is similar to the prior study. 2. There is associated 8 mm of right midline shift which is also similar to the prior study. Continue d follow-up recommended. 3. Right occipital/temporal bone fractures are again noted. ACT 112: Negative or not required by law. Electronically signed by: Vlad Castellanos M.D. 03/20/2021 7:15 AM
[2021-03-20 08:26] LABS: Potassium 3.9 mmol/L (3.5-5.1)
[2021-03-20] MEDS: TRIAMCINOLONE ACET 0.1% OINT 15 GM TUBE TOP SCH ×2 (08:28→21:53)
[2021-03-20] MEDS: LORATADINE 10 MG TAB PO SCH (08:29)
[2021-03-20] MEDS ORDERED: CEFEPIME 2,000 MG in SYRINGE 0 ML IV SCH (09:00)
[2021-03-20] MEDS ORDERED: NON-FORMULARY MEDICATION (Food Supplemt, Lactose-Reduced [Ensure] Liquid) PO SCH (09:00)
[2021-03-20] MEDS: DOCUSATE SODIUM 100 MG CAP PO SCH ×2 (12:15→17:25)
[2021-03-20] MEDS: MEMANTINE HCL 10 MG TAB PO SCH ×2 (12:15→21:52)
[2021-03-20] MEDS: SERTRALINE HCL 50 MG TABLET PO SCH (12:15)
--- NOTE | 2021-03-20 14:50 | Hospitalist Progress Note ---
Date of Service March 20, 2021 Assessment & Plan (1) SDH (subdural hematoma): Plan: per Dr. Christine's notes with addendum: Acute on chronic Subdural Hematoma hx traumatic subdural hematoma secondary to fall December, - repeat CT head: 1. Redemonstration of the acute on chronic left-sided subdural hematoma. This measures up to 2.8 cm in thickness and is similar to the prior study. 2. There is associated 8 mm of right midline shift which is also similar to the prior study. Continued follow-up recommended. 3. Right occipital/temporal bone fractures are again noted. Patient's family refused surgical intervention. - no new focal deficits at this time continue neurochecks - possible repeat CT head this evening Neuro consulted Hypertension (per out patient [facility] records) - Lisinopril 2.5mg po daily started PRN Hydralazine Complicated UTI, no sepsis for now - Urine culture negative so far continue empiric Aztreonam ff up Urine culture Dementia - seems to be at baseline DVT prophylaxis. SCDs Re: Traumatic ICH DNR as per patient's prior directives as per son/POA, Mr. Edgardo Lagunas. Family will consider hospice if brain bleed/shift progresses as per discussion with son. Admission and Anticipated Discharge Date Admission Date: March 19, 2021 Subjective ff up for acute on chronic hematoma, etc seen resting in bed, sleeping but easily awakened eyes mostly closed during exam answers questions, but confused not oriented states she feels fine denies headache, dizziness, nausea, weakness/numbness no chest pain, dyspnea, palpitations, dizziness no other pain in her body Review of Systems Review of Systems: all noted and negative except for above Physical Exam Physical Exam: General- oriented x0 , not in distress, speaks in sentences with no effort or accessory muscle use Head- no signs of acute trauma Eyes- patient closes eyes tightly on exam Neck- supple, no JVD, no adenopathy, no thyromegaly; carotids +2/2, no bruits appreciated Lungs- clear to auscultation bilaterally, no rales/wheezes Heart- normal rate, regular rhythm; no murmur, no gallop, no rub appreciated Abdomen- normal bowel sounds, nondistended, soft, nontender, no masses or hepatosplenomegaly Extremities- no pretibial edema, no calf tenderness; peripheral pulses intact Neuro- alert, oriented x 0; no facial asymmetry, moves extremities equally Skin- warm & dry Results & Data Results & Data ([facility]) Vital Signs (Past 12 Hours) Vital Signs Temp Pulse Resp BP Pulse Ox 03/20/21 12:00 36.7 C 84 18 169/90 H 95 03/20/21 05:00 84 18 158/72 H 97 03/20/21 03:00 98 H 18 106/74 98 all noted and reviewed including below
[2021-03-20] MEDS: AZTREONAM 1,000 MG in DEXTROSE 5% 100 ML IV SCH ×2 (15:07→21:54)
--- NOTE | 2021-03-20 16:22 | Consultation Report ---
NEUROLOGY CONSULTATION NOTE DATE OF CONSULTATION: 03/20/2021. CHIEF COMPLAINT: Generalized body pain HISTORY OF PRESENT ILLNESS: An 85-year-old female was admitted on 03/19/2021 for generalized body pain. The patient has a history of dementia as well as hypertension. The patient was found to have an acute on chronic subdural hematoma upon admission. [facility] was contacted for imaging review and recommended inpatient monitoring. Recommended a repeat CT head noncontrast in 6 hours. The patient was diagnosed with subdural hematoma in 12/2020, thought to be traumatic. She was discovered to have a traumatic subdural hematoma and subarachnoid hemorrhage secondary to mechanical fall. She did refuse neurosurgical intervention. She was discharged to group home facility. She was complaining of generalized body pain at the correction on 03/19/2021. She was then brought to the Emergency Department for further evaluation. She does not recollect her prior trauma. PAST MEDICAL HISTORY: Dementia, subdural hematoma. PAST SURGICAL HISTORY: Tonsillectomy, adenoidectomy, thyroidectomy. FAMILY HISTORY: Stroke. SOCIAL HISTORY: She does not use alcohol. She lives in a correction. ALLERGIES: SHELLFISH. HOME MEDICATIONS: Colace, Synthroid, Namenda, Tylenol, hydroxyzine, Ativan as needed, Nystatin, senna, MiraLax. REVIEW OF SYSTEMS: Limited due to patient's underlying dementia, otherwise negative except as noted above in the HPI. PHYSICAL EXAMINATION: VITAL SIGNS: Blood pressure 169/90, pulse is 84, respiratory rate 18, temperature 36.7 degrees Celsius, oxygen saturation 95% on room air. GENERAL: The patient appears stated age, in no distress. HEAD: Atraumatic, normocephalic. NECK: Supple. LUNGS: Normal respiratory effort. CARDIAC: Pulses are intact. ABDOMEN: Nondistended. SKIN: No skin rash. PSYCHIATRIC: Flat affect NEUROLOGIC: She is awake, not participating well with examine. Speech is clear, non fluent. Eyes are midline. Face is symmetric. Tongue is midline. Pupils are symmetric. Moving all 4 extremities against gravity. Sensation intact to light touch. No tremor or myoclonic jerks. DIAGNOSTIC TESTING AND LABORATORY VALUES: WBC 11.82, hemoglobin 13.6. Sodium 137, potassium 3.9, chloride 105, BUN 17, creatinine 0.78, glucose 104. Urinalysis showed 2+ blood, 2+ leukocyte esterase. COVID-19 was negative. IMAGING: Head CT noncontrast performed today at 1:30 a.m. showed redemonstration of acute on chronic left-sided subdural hematoma. This measures up to 2.8 cm of thickness, similar to the prior study. There is an associated 8 mm right midline shift, similar to the prior study. CT head noncontrast performed on 03/19/2021, large acute on chronic subdural hemorrhage along the left convexity as detailed above. This effaces the subjacent cortical sulci in the left lateral ventricle. No evidence of acute ischemia. ASSESSMENT AND PLAN: An 85-year-old female with a history of dementia as well as a traumatic left-sided subdural hematoma with recent imaging showing stable appearance, admitted for generalized body aches. Neurosurgery following for known subdural hematoma. No surgical intervention planned. In regards to the acute on chronic subdural hematoma, can prescribe dexamethasone 2 mg twice daily for 21 days. Otherwise, we will defer on any additional diagnostic testing. Please contact me with any additional questions or concerns. Job ID: [id number] [facility] CLINICLacey
[2021-03-20] MEDS: DONEPEZIL HCL 10 MG TAB PO SCH (21:51)
[2021-03-20] MEDS: lisinopril 2.5 MG TAB PO SCH ×2 (21:52→22:29)
[2021-03-20] MEDS: dexAMETHasone 1 MG TAB PO SCH (21:52)
[2021-03-20] MEDS ORDERED: hydrALAZINE HCL 20 MG/ML VIAL IV STA (23:01)
[2021-03-21] MEDS: AZTREONAM 1,000 MG in DEXTROSE 5% 100 ML IV SCH (05:58)
[2021-03-21] MEDS: LEVOTHYROXINE SODIUM 88 MCG TABLET PO SCH (06:00)
[2021-03-21 09:14] LABS: Basophils # (auto) 0.05 K/uL (0-0.2); Basophils % (auto) 0.4 %; Eosinophils # (auto) 1.34 K/uL (0-0.5); Eosinophils % (auto) 9.4 %; Hemoglobin 13.5 g/dL (12.0-16.0); Immature Granulocytes # (auto) 0.03 K/uL (0.00-0.02); Immature Granulocytes % (auto) 0.2 %; Lymphocytes # (auto) 1.96 K/uL (1.2-3.4); Lymphocytes % (auto) 13.8 %; Mean Corpuscular Hemoglobin 31.6 pg (25-34); Mean Corpuscular Hgb Conc 33.8 g/dL (32-36); Mean Corpuscular Volume 93.7 fL (80-100); Mean Platelet Volume 9.8 fL (7.4-10.4); Monocytes # (auto) 1.27 K/uL (0.11-0.59); Monocytes % (auto) 8.9 %; Neutrophils # (auto) 9.56 K/uL (1.4-6.5); Neutrophils % (auto) 67.3 %; Platelet Count 461 K/uL (130-400); RDW Coefficient of Variation 13.4 % (11.5-14.5); RDW Standard Deviation 45.8 fL (36.4-46.3); Red Blood Count 4.27 M/uL (4.2-5.4); White Blood Count 14.21 K/uL (4.8-10.8)
--- NOTE | 2021-03-21 09:28 | CT Scan Report ---
CT SCAN OF THE BRAIN WITHOUT IV CONTRAST CLINICAL HISTORY: Follow-up subdural hemorrhage. COMPARISON STUDY: Prior CT scans of the brain, most recently dated 03/20/2021. TECHNIQUE: Unenhanced axial CT scan of the brain is performed from the vertex to the skull base. A do se lowering technique was utilized adhering to the principles of ALARA. The patient was scanned twice due to significant motion artifact. CT DOSE: 537.48 mGy.cm FINDINGS: Brain parenchyma: Again seen is a large acute on chronic subdural hemorrhage along the left convexity with mixed attenuation blood products. This measures up to 2.8 cm in maximum dimension and effaces t he subjacent cortical sulci as well as the left lateral ventricle, and there is 8 mm of oxgf-qd-syzry midline shift. There are age-related involutional changes noting mild to moderate subcortical and p eriventricular microangiopathic change. No parenchymal hematoma is identified. There is no evidence o f acute territorial ischemia by CT criteria. Bhatti-white matter differentiation is preserved. Ventricles, sulci, cisterns: Prominent secondary to involutional change. See above. Intracranial vasculature: There is atherosclerotic calcification of the cavernous carotid and vertebr al arteries. Calvarium: The skeletal structures are osteopenic. Subacute fractures of the right temporal and occip ital bones are again noted. Sinuses and mastoids: The visualized paranasal sinuses are clear. There is a right mastoid effusion. The left mastoid air cells are well pneumatized. Orbits: The bony orbits are grossly intact. There are bilateral ocular lens implants. IMPRESSION: 1. There is unchanged appearance of a large acute on chronic subdural hemorrhage along the left conve xity as detailed above. 2. This effaces the subjacent cortical sulci and the left lateral ventricle with 8 mm of ypbl-mz-apdt t midline shift. 3. There is no evidence of acute territorial ischemia by CT criteria. 4. Subacute fractures of the right occipital and temporal bones are again noted with a right mastoid effusion. ACT 112: Negative or not required by law. Electronically signed by: Alex Cline M.D. 03/21/2021 9:27 AM
[2021-03-21] MEDS: dexAMETHasone 1 MG TAB PO SCH ×2 (09:34→20:22)
[2021-03-21] MEDS: TRIAMCINOLONE ACET 0.1% OINT 15 GM TUBE TOP SCH ×2 (09:34→20:23)
[2021-03-21] MEDS: MEMANTINE HCL 10 MG TAB PO SCH ×2 (09:34→20:24)
[2021-03-21] MEDS: LORATADINE 10 MG TAB PO SCH ×2 (09:35→09:41)
[2021-03-21 09:49] LABS: BUN Creatinine Ratio 19.2 (10-20); Calcium 8.7 mg/dl (8.5-10.1); Creatinine Clr Calc Pharmacy 46.2 ml/min; Est GFR (Non-African American) 75.1 ml/min; Potassium 3.5 mmol/L (3.5-5.1)
[2021-03-21] MEDS: SERTRALINE HCL 50 MG TABLET PO SCH ×2 (11:30→12:34)
[2021-03-21] MEDS: DOCUSATE SODIUM 100 MG CAP PO SCH ×2 (12:34→17:29)
[2021-03-21] MEDS: PANTOprazole 40 MG TAB PO SCH (12:34)
--- NOTE | 2021-03-21 14:07 | Hospitalist Progress Note ---
Date of Service March 21, 2021 Assessment & Plan (1) SDH (subdural hematoma): Plan: per Dr. Christine's notes with addendum: Acute on chronic Subdural Hematoma hx traumatic subdural hematoma secondary to fall December, - repeat CT head: 1. Redemonstration of the acute on chronic left-sided subdural hematoma. This measures up to 2.8 cm in thickness and is similar to the prior study. 2. There is associated 8 mm of right midline shift which is also similar to the prior study. Continued follow-up recommended. 3. Right occipital/temporal bone fractures are again noted. Patient's family refused surgical intervention. - no new focal deficits at this time continue neurochecks - repeat CT head this morning: stable Neuro consulted- recommend Decadron 2mg BID x 21 days, tolerating well so far monitor - PT/OT evaluation Hypertension (per out patient [facility] records) - Lisinopril 2.5mg po daily started--> increase to 5mg daily PRN Hydralazine Complicated UTI, Ruled out - Urine culture negative d/c empiric Aztreonam monitor rash on the right torso and buttock Dementia - seems to be at baseline DVT prophylaxis. SCDs Re: Traumatic ICH DNR as per patient's prior directives as per son/POA, Mr. Edgardo Lagunas. plan of care discussed with patient's son Edgardo over the phone in detail and at length all questions answered he is understanding, agreeable, comfortable with the plan of care Admission and Anticipated Discharge Date Admission Date: March 19, 2021 Subjective ff up for subdural hematoma, etc seen resting in bed, comfortable occasionally opens eyes to command but mostly drowsy, keeps eyes closed shakes head when asked if she has headache, nausea, shortness of breath spoke with patient's son, Edgardo states he spoke with her mother last night, and she recognized him, was conversant had some breakfast and took her pills this AM per RN no other issues Review of Systems Review of Systems: Unobtainable due to cognitive status Physical Exam Physical Exam: General- oriented x 0, not in distress, breathing with no effort or accessory muscle use Eyes- anicteric Neck- no JVD Lungs- clear breath sounds bilaterally, no rales/wheezes Heart- normal rate, regular rhythm; no murmurs Abdomen- normal bowel sounds, nondistended, soft, nontender Extremities- no pretibial edema, no calf tenderness Neuro- mostly drowsy; no gross focal neurologic deficits Skin- warm & dry (+) rash on the right side of the torso and buttock Results & Data Results & Data ([facility]) Vital Signs (Past 12 Hours) Vital Signs Temp Pulse Resp BP Pulse Ox 03/21/21 13:00 102 H 157/95 H 03/21/21 11:37 36.9 C 89 18 171/93 H 94 03/21/21 07:44 36.7 C 105 H 18 160/79 H 91 03/21/21 04:02 37.0 C 101 H 20 167/79 H 98 all noted and reviewed including below
[2021-03-21] MEDS ORDERED: lisinopril 5 MG TAB PO ONE (14:13)
[2021-03-21] MEDS: DONEPEZIL HCL 10 MG TAB PO SCH (20:22)
[2021-03-22] MEDS: LEVOTHYROXINE SODIUM 88 MCG TABLET PO SCH (05:50)
[2021-03-22 06:11] LABS: Basophils # (auto) 0.03 K/uL (0-0.2); Basophils % (auto) 0.2 %; Eosinophils # (auto) 0.75 K/uL (0-0.5); Eosinophils % (auto) 5.6 %; Hematocrit (blood only) 39.9 % (37-47); Hemoglobin 13.2 g/dL (12.0-16.0); Immature Granulocytes # (auto) 0.07 K/uL (0.00-0.02); Immature Granulocytes % (auto) 0.5 %; Lymphocytes # (auto) 1.71 K/uL (1.2-3.4); Lymphocytes % (auto) 12.9 %; Mean Corpuscular Hemoglobin 31.1 pg (25-34); Mean Corpuscular Hgb Conc 33.1 g/dL (32-36); Mean Corpuscular Volume 93.9 fL (80-100); Mean Platelet Volume 9.6 fL (7.4-10.4); Monocytes % (auto) 9.8 %; Neutrophils # (auto) 9.44 K/uL (1.4-6.5); Platelet Count 411 K/uL (130-400); RDW Coefficient of Variation 13.5 % (11.5-14.5); RDW Standard Deviation 46.2 fL (36.4-46.3); Red Blood Count 4.25 M/uL (4.2-5.4)
[2021-03-22 07:12] LABS: BUN Creatinine Ratio 26.1 (10-20); Calcium 8.6 mg/dl (8.5-10.1); Creatinine Clr Calc Pharmacy 45.1 ml/min; Est GFR (Non-African American) 79.4 ml/min; Potassium 3.3 mmol/L (3.5-5.1)
[2021-03-22] MEDS: lisinopril 5 MG TAB PO SCH ×2 (08:14→10:34)
[2021-03-22] MEDS: MEMANTINE HCL 10 MG TAB PO SCH ×3 (08:14→20:31)
[2021-03-22] MEDS: LORATADINE 10 MG TAB PO SCH ×2 (08:14→10:34)
[2021-03-22] MEDS: PANTOprazole 40 MG TAB PO SCH ×2 (08:14→10:34)
[2021-03-22] MEDS: dexAMETHasone 1 MG TAB PO SCH ×3 (08:14→20:31)
[2021-03-22] MEDS: TRIAMCINOLONE ACET 0.1% OINT 15 GM TUBE TOP SCH ×2 (08:15→20:30)
[2021-03-22] MEDS ORDERED: POTASSIUM CHLORIDE CRTAB 20 MEQ TABCR PO STA (08:15)
[2021-03-22] MEDS: DOCUSATE SODIUM 100 MG CAP PO SCH ×3 (10:31→17:26)
--- NOTE | 2021-03-22 11:52 | Hospitalist Progress Note ---
Date of Service March 22, 2021 Assessment & Plan (1) SDH (subdural hematoma): Plan: per Dr. Christine's notes with addendum: Acute on chronic Subdural Hematoma hx traumatic subdural hematoma secondary to fall December, - repeat CT head: 1. Redemonstration of the acute on chronic left-sided subdural hematoma. This measures up to 2.8 cm in thickness and is similar to the prior study. 2. There is associated 8 mm of right midline shift which is also similar to the prior study. Continued follow-up recommended. 3. Right occipital/temporal bone fractures are again noted. - repeat CT head 03/21 : stable - no surgical intervention as per family Neuro consulted- recommend Decadron 2mg BID x 21 days, tolerating well so far - no new neuro deficits - PT/OT evaluation: pending Hypertension (per out patient [facility] records) - Lisinopril 2.5mg po daily started--> increase to 5mg daily BP improving PRN Hydralazine Complicated UTI, Ruled out - Urine culture negative d/c empiric Aztreonam monitor rash on the right torso and buttock Dementia - seems to be at baseline DVT prophylaxis. - SCDs Re: Traumatic ICH DNR as per patient's prior directives as per son/POA, Mr. Edgardo Lagunas. Admission and Anticipated Discharge Date Admission Date: March 19, 2021 Subjective ff up for subdural hematoma, etc seen resting in bed, sleeping but easily awakened more awake, answers in short phrases, nods/shakes her head, smiling not oriented but able to confirm Edgardo is her son and that she has 3 kids no headache, dizziness, changes with vision, focal weakness, or numbness no chest pain, dyspnea, palpitations, dizziness ate 25% of breakfast declining to take her pills this morning no other symptoms Review of Systems Review of Systems: all noted and negative except for above Physical Exam Physical Exam: General- oriented x 1, not in distress, speaks in sentences with no effort or accessory muscle use Eyes- anicteric Neck- no JVD Lungs- clear BS BL Heart- normal rate, regular rhythm; no murmurs Abdomen- normal bowel sounds, nondistended, soft, nontender Extremities- no pretibial edema, no calf tenderness no rash Neuro- alert, oriented x 1; can move all extremities equally, no new focal neuro deficits Skin- warm & dry Results & Data Results & Data ([facility]) Vital Signs (Past 12 Hours) Vital Signs Temp Pulse Pulse Resp BP Pulse Ox 03/22/21 10:58 36.4 C L 81 20 126/81 96 03/22/21 07:17 36.5 C 71 20 147/79 H 96 03/22/21 07:00 66 03/22/21 02:50 36.7 C 85 20 124/70 97 all noted and reviewed including below
[2021-03-22] MEDS: SERTRALINE HCL 50 MG TABLET PO SCH (12:41)
[2021-03-22] MEDS: POTASSIUM CHLORIDE / WTR 10 MEQ/100 ML PLCT IV SCH ×4 (14:07→19:02)
[2021-03-22] MEDS: DONEPEZIL HCL 10 MG TAB PO SCH (20:30)
[2021-03-23] MEDS: hydrALAZINE HCL 20 MG/ML VIAL IV PRN ×2 (03:40→23:13)
[2021-03-23] MEDS ORDERED: hydrALAZINE HCL 20 MG/ML VIAL IV ONE (05:02)
[2021-03-23] MEDS: TRIAMCINOLONE ACET 0.1% OINT 15 GM TUBE TOP SCH ×2 (06:26→20:47)
[2021-03-23] MEDS: LEVOTHYROXINE SODIUM 88 MCG TABLET PO SCH ×2 (06:26→06:30)
[2021-03-23] MEDS: lisinopril 5 MG TAB PO SCH (07:42)
[2021-03-23] MEDS: LORATADINE 10 MG TAB PO SCH (07:42)
[2021-03-23] MEDS: MEMANTINE HCL 10 MG TAB PO SCH ×2 (07:42→20:49)
[2021-03-23] MEDS: dexAMETHasone 1 MG TAB PO SCH ×2 (07:43→20:50)
[2021-03-23] MEDS: PANTOprazole 40 MG TAB PO SCH (07:43)
[2021-03-23 09:28] LABS: Basophils # (auto) 0.04 K/uL (0-0.2); Basophils % (auto) 0.3 %; Eosinophils # (auto) 1.19 K/uL (0-0.5); Eosinophils % (auto) 8.2 %; Hematocrit (blood only) 41.9 % (37-47); Hemoglobin 13.9 g/dL (12.0-16.0); Immature Granulocytes # (auto) 0.06 K/uL (0.00-0.02); Immature Granulocytes % (auto) 0.4 %; Lymphocytes # (auto) 1.91 K/uL (1.2-3.4); Lymphocytes % (auto) 13.1 %; Mean Corpuscular Hemoglobin 31.4 pg (25-34); Mean Corpuscular Hgb Conc 33.2 g/dL (32-36); Mean Corpuscular Volume 94.6 fL (80-100); Mean Platelet Volume 9.6 fL (7.4-10.4); Monocytes # (auto) 1.04 K/uL (0.11-0.59); Monocytes % (auto) 7.1 %; Neutrophils # (auto) 10.36 K/uL (1.4-6.5); Neutrophils % (auto) 70.9 %; Platelet Count 448 K/uL (130-400); RDW Coefficient of Variation 13.6 % (11.5-14.5); Red Blood Count 4.43 M/uL (4.2-5.4)
[2021-03-23 09:58] LABS: BUN Creatinine Ratio 24.2 (10-20); Est GFR (African American) 93.4 ml/min; Est GFR (Non-African American) 80.6 ml/min; Magnesium 1.9 mg/dl (1.7-2.4); Potassium 3.6 mmol/L (3.5-5.1)
[2021-03-23] MEDS: SODIUM CHLORIDE 0.9% 1000ML 1,000 ML IV SCH ×2 (10:01→23:12)
--- NOTE | 2021-03-23 10:16 | Electrocardiogram Report ---
Test Reason : Blood Pressure : / mmHG Vent. Rate : 115 BPM Atrial Rate : 115 BPM P-R Int : 160 ms QRS Dur : 082 ms QT Int : 334 ms P-R-T Axes : 064 019 007 degrees QTc Int : 462 ms Sinus tachycardia Possible Old Anteroseptal infarct (cited on or before 06-JAN-2021) Diffuse Nonspecific ST abnormality Abnormal ECG When compared with ECG of 06-JAN-2021 17:19, Premature ventricular complexes are no longer Present Otherwise no significant change Confirmed by Chandra Gonsales ([id number]) on 03/23/2021 10:16:03 AM Referred By: Magalys Arce Confirmed By:Chandra Gonsales
[2021-03-23] MEDS: SERTRALINE HCL 50 MG TABLET PO SCH (12:03)
[2021-03-23] MEDS: DOCUSATE SODIUM 100 MG CAP PO SCH ×2 (12:03→16:53)
--- NOTE | 2021-03-23 12:04 | Hospitalist Progress Note ---
Date of Service March 23, 2021 Assessment & Plan (1) SDH (subdural hematoma): (2) Midline shift of brain: Plan: (1) SDH (subdural hematoma): Plan: per Dr. Christine's notes with addendum: Acute on chronic Subdural Hematoma hx traumatic subdural hematoma secondary to fall December, - repeat CT head: 1. Redemonstration of the acute on chronic left-sided subdural hematoma. This measures up to 2.8 cm in thickness and is similar to the prior study. 2. There is associated 8 mm of right midline shift which is also similar to the prior study. Continued follow-up recommended. 3. Right occipital/temporal bone fractures are again noted. - repeat CT head 03/21 : stable - no surgical intervention as per family Neuro consulted- recommend Decadron 2mg BID x 21 days, tolerating well so far -Patient more alert today No neurologic symptoms noted - PT/OT evaluation: pending Hypertension - Lisinopril 2.5mg po daily started--> increased to 5mg daily BP improving PRN Hydralazine Pressure ulcers of R lateral and R lateral distal knee, stage 3, POA -Continue daily wound care Complicated UTI, Ruled out - Urine culture negative d/c empiric Aztreonam monitor rash on the right torso and buttock Dementia - seems to be at baseline DVT prophylaxis. - SCDs Re: Traumatic ICH DNR as per patient's prior directives as per son/POA, Mr. Edgardo Lagunas. Admission and Anticipated Discharge Date Admission Date: March 19, 2021 Subjective Follow-up for subdural hematoma, etc. Seen resting in bed, awake, more alert Answers more questions with short phrases, still mostly confused Denies headache, dizziness, nausea, chest pain, shortness of breath, palpitations Had 25% of breakfast today, took her oral medications today No other symptoms Review of Systems Review of Systems: all noted and negative except for above Physical Exam Physical Exam: General- oriented x 0, not in distress, speaks in sentences with no effort or accessory muscle use Eyes- anicteric Neck- no JVD Lungs- clear breath sounds, no wheezing, no crackles bilaterally Heart-tachycardic, regular rhythm; no murmurs Abdomen- normal bowel sounds, nondistended, soft, nontender Extremities- no pretibial edema, no calf tenderness Neuro- alert, oriented x 0; no gross focal neurologic deficits Skin- warm & dry Results & Data Results & Data ([facility]) Vital Signs (Past 12 Hours) Vital Signs Temp Pulse Pulse Pulse Resp BP BP 03/23/21 11:12 36.6 C 77 19 127/83 03/23/21 07:31 127 H 03/23/21 07:22 36.6 C 116 H 20 120/74 03/23/21 06:39 36.4 C L 124 H 121 H 18 118/65 03/23/21 04:25 85 179/96 H 03/23/21 03:39 77 20 180/91 H Pulse Ox 03/23/21 11:12 95 03/23/21 07:31 03/23/21 07:22 98 03/23/21 06:39 95 03/23/21 04:25 03/23/21 03:39 98 all noted and reviewed including below
[2021-03-23] MEDS: DONEPEZIL HCL 10 MG TAB PO SCH (20:50)
[2021-03-24] MEDS: LEVOTHYROXINE SODIUM 88 MCG TABLET PO SCH (06:12)
[2021-03-24] MEDS: TRIAMCINOLONE ACET 0.1% OINT 15 GM TUBE TOP SCH ×2 (06:12→20:06)
[2021-03-24] MEDS: PANTOprazole 40 MG TAB PO SCH (08:06)
[2021-03-24] MEDS: MEMANTINE HCL 10 MG TAB PO SCH ×2 (08:06→20:08)
[2021-03-24] MEDS: LORATADINE 10 MG TAB PO SCH (08:06)
[2021-03-24] MEDS: dexAMETHasone 1 MG TAB PO SCH ×2 (08:06→20:07)
[2021-03-24] MEDS: lisinopril 5 MG TAB PO SCH (08:06)
--- NOTE | 2021-03-24 10:30 | CT Scan Report ---
CT head/brain wo con CLINICAL HISTORY: ff up subdural hematoma COMPARISON STUDY: 03/21/2021 CT DOSE: 537.48 mGy.cm TECHNIQUE: Standard CT of the Brain was performed without IV contrast. A dose lowering technique was utilized adhering to the principles of ALARA. FINDINGS: Extraaxial space: There is again a large, acute to subacute upon chronic subdural hematoma on the lef t. Again measures approximately 28 cm in greatest width. There is again surrounding cerebral edema wi th compression upon the lateral horn of the left lateral ventricle. There is again evidence for midli ne shift of approximately 7 mm. There are no other extra-axial fluid collections. Ventricles and cisterns: The ventricles are again mildly to moderately dilated bilaterally. There is no evidence for midline shift or mass effect. Parenchyma: There is no subarachnoid or intraparenchymal hemorrhage. There is no evidence for an acu te infarct or cerebral edema. There is mild cerebral cortical atrophy and decreased attenuation in th e periventricular white matter representing remote small vessel disease. There are no gross mass lesi ons. Osseous structures: Subacute fractures of the right occipital and temporal bones are again seen with fluid present in the right mastoid air cells. The visualized paranasal sinuses are clear. Left mastoi d air cells are clear. Soft tissues: There is no evidence for focal soft tissue swelling. IMPRESSION: 1. No significant interval change in acute to subacute large right subdural hematoma superimposed on chronic subdural hematoma. 2. There is again surrounding cerebral edema with compression upon the lateral lower left lateral lamar tricle and approximately 7 mm midline shift to the right again seen. 3. Cerebral cortical atrophy and remote small vessel disease. 4. Subacute fractures of the right temporal and occipital bones are again seen. Fluid is present with in the right mastoid air cells. ACT 112: Negative or not required by law. Electronically signed by: Sherwin Batista M.D. 03/24/2021 10:28 AM
[2021-03-24] MEDS: SERTRALINE HCL 50 MG TABLET PO SCH (11:38)
[2021-03-24] MEDS: DOCUSATE SODIUM 100 MG CAP PO SCH ×2 (11:40→16:14)
--- NOTE | 2021-03-24 13:51 | Hospitalist Progress Note ---
Date of Service March 24, 2021 Assessment & Plan (1) SDH (subdural hematoma): (2) Midline shift of brain: Plan: (1) SDH (subdural hematoma): Plan: per Dr. Christine's notes with addendum: Acute on chronic Subdural Hematoma hx traumatic subdural hematoma secondary to fall December, - repeat CT head: 1. Redemonstration of the acute on chronic left-sided subdural hematoma. This measures up to 2.8 cm in thickness and is similar to the prior study. 2. There is associated 8 mm of right midline shift which is also similar to the prior study. Continued follow-up recommended. 3. Right occipital/temporal bone fractures are again noted. - repeat CT head 03/21 : stable - no surgical intervention as per family Neuro consulted- recommend Decadron 2mg BID x 21 days, tolerating well so far -Patient mental status continues to improve, although pleasantly confused No new neurologic symptoms noted - PT/OT evaluation: will need SNF Hypertension - Lisinopril 2.5mg po daily started--> increased to 5mg daily BP improving PRN Hydralazine Pressure ulcers of R lateral and R lateral distal knee, stage 3, POA -Continue daily wound care Complicated UTI, Ruled out - Urine culture negative d/c empiric Aztreonam monitor rash on the right torso and buttock Dementia - seems to be at baseline DVT prophylaxis. - SCDs Re: Traumatic ICH DNR as per patient's prior directives as per son/POA, Mr. Edgardo Lagunas. Disposition transition to SNF when accepted Admission and Anticipated Discharge Date Admission Date: March 19, 2021 Subjective ff up for subdural hematoma, etc seen resting in bed, comfortable more alert, engaged smiling answers most questions, pleasantly confused repeats examiner's words answers yes when asked she has headache, mild no dizziness, nausea no chest pain, dyspnea, palpitations ate 50% BF, took morning meds no other symptoms Review of Systems Review of Systems: all noted and negative except for above Physical Exam Physical Exam: General- oriented x 0, not in distress, speaks in sentences with no effort or accessory muscle use Eyes- anicteric Neck- no JVD Lungs- clear breath sounds bilaterally Heart- normal rate, regular rhythm; no murmurs Abdomen- normal bowel sounds, nondistended, soft, nontender Extremities- no pretibial edema, no calf tenderness Neuro- alert, oriented x 0; no gross focal neurologic deficits Skin- warm & dry Results & Data Results & [facility] ([facility]) Vital Signs (Past 12 Hours) Vital Signs Temp Pulse Pulse Resp BP BP Pulse Ox 03/24/21 11:40 36.5 C 88 18 144/72 H 98 03/24/21 09:16 93 H 03/24/21 07:16 36.3 C L 81 21 155/74 H 98 03/24/21 02:55 93 H 18 124/68 98 03/24/21 02:05 96 H all noted and reviewed including below
[2021-03-24] MEDS: hydrALAZINE HCL 20 MG/ML VIAL IV PRN (16:38)
[2021-03-24] MEDS: DONEPEZIL HCL 10 MG TAB PO SCH (20:07)
[2021-03-25] MEDS: LEVOTHYROXINE SODIUM 88 MCG TABLET PO SCH (06:20)
[2021-03-25] MEDS: lisinopril 5 MG TAB PO SCH (09:29)
[2021-03-25] MEDS: MEMANTINE HCL 10 MG TAB PO SCH ×2 (09:29→20:24)
[2021-03-25] MEDS: dexAMETHasone 1 MG TAB PO SCH ×2 (09:29→20:23)
[2021-03-25] MEDS: PANTOprazole 40 MG TAB PO SCH (09:30)
[2021-03-25] MEDS: TRIAMCINOLONE ACET 0.1% OINT 15 GM TUBE TOP SCH ×2 (09:30→20:24)
[2021-03-25] MEDS: LORATADINE 10 MG TAB PO SCH (09:30)
[2021-03-25] MEDS: SERTRALINE HCL 50 MG TABLET PO SCH (12:22)
[2021-03-25] MEDS: DOCUSATE SODIUM 100 MG CAP PO SCH ×2 (12:23→17:41)
--- NOTE | 2021-03-25 13:12 | Hospitalist Progress Note ---
Date of Service March 25, 2021 Assessment & Plan (1) SDH (subdural hematoma): (2) Midline shift of brain: Plan: (1) SDH (subdural hematoma): Plan: per Dr. Christine's notes with addendum: Acute on chronic Subdural Hematoma hx traumatic subdural hematoma secondary to fall December, - repeat CT head: 1. Redemonstration of the acute on chronic left-sided subdural hematoma. This measures up to 2.8 cm in thickness and is similar to the prior study. 2. There is associated 8 mm of right midline shift which is also similar to the prior study. Continued follow-up recommended. 3. Right occipital/temporal bone fractures are again noted. - repeat CT head 03/21 : stable repeat CT head 03/24: stable - no surgical intervention as per family Neuro consulted- recommend Decadron 2mg BID x 21 days, tolerating well so far -Patient mental status much better compared to admission, more awake and alert, pleasantly confused No new neurologic symptoms noted - PT/OT evaluation: will need SNF Hypertension - Lisinopril 2.5mg po daily started--> increased to 5mg daily BP improved PRN Hydralazine Pressure ulcers of R lateral and R lateral distal knee, stage 3, POA -Continue daily wound care Complicated UTI, Ruled out - Urine culture negative d/c empiric Aztreonam monitor rash on the right torso and buttock Dementia - seems to be at baseline DVT prophylaxis. - SCDs Re: Traumatic ICH DNR as per patient's prior directives as per son/POA, Mr. Edgardo Lagunas. Disposition transition to SNF when accepted Admission and Anticipated Discharge Date Admission Date: March 19, 2021 Subjective Follow-up for subdural hematoma, etc. Seen resting in bed, awake, alert, engaged with examiner Pleasantly confused, smiling States she feels fine overall Denies headache, dizziness, nausea vomiting No chest pain, shortness of breath, palpitations No other symptoms Review of Systems Review of Systems: all noted and negative except for above Physical Exam Physical Exam: General- oriented x 0, not in distress, speaks in sentences with no effort or accessory muscle use Eyes- anicteric Neck- no JVD Lungs- clear BS BL Heart- normal rate, regular rhythm; no murmurs Abdomen- normal bowel sounds, nondistended, soft, nontender Extremities- no pretibial edema, no calf tenderness Neuro- alert, oriented x 0; no new gross focal neurologic deficits Skin- warm & dry Results & Data Results & Data ([facility]) Vital Signs (Past 12 Hours) Vital Signs Temp Pulse Pulse Resp BP BP Pulse Ox 03/25/21 12:59 36.8 C 83 17 122/73 95 03/25/21 07:48 93 H 03/25/21 06:09 36.4 C L 80 16 157/82 H 94 03/25/21 03:20 36.6 C 76 16 134/73 93 all noted and reviewed including below
[2021-03-25] MEDS: DONEPEZIL HCL 10 MG TAB PO SCH (20:24)
[2021-03-26] MEDS: LEVOTHYROXINE SODIUM 88 MCG TABLET PO SCH (06:11)
[2021-03-26] MEDS: TRIAMCINOLONE ACET 0.1% OINT 15 GM TUBE TOP SCH (06:13)
[2021-03-26] MEDS: MEMANTINE HCL 10 MG TAB PO SCH (07:52)
[2021-03-26] MEDS: dexAMETHasone 1 MG TAB PO SCH (07:52)
[2021-03-26] MEDS: PANTOprazole 40 MG TAB PO SCH (07:53)
[2021-03-26] MEDS: LORATADINE 10 MG TAB PO SCH (07:53)
[2021-03-26] MEDS: lisinopril 5 MG TAB PO SCH (07:59)
--- NOTE | 2021-03-26 09:24 | Discharge Summary ---
Date of Service March 26, 2021 Admission HPI Per Admitting Provider History obtained from patient, family, and records. Unable to obtain history from patient secondary to dementia. Medical history significant for dementia, hypertension, history traumatic subdural hematoma/subarachnoid hemorrhage, postsurgical hypothyroidism, mood disorder, bullous pemphigoid, past tobacco abuse Last confinement December 2020 traumatic subdural hematoma and subarachnoid hemorrhage secondary to mechanical fall. Patient family refused neurosurgical intervention. Patient subsequently discharged to SNF, Patient complains of generalized body pain at jail today. No recollection of recent trauma or falls as per family. Patient brought to the ER for evaluation. Medical History as above Surgical History : Tonsillectomy/adenoidectomy, thyroidectomy Family History : Stroke Personal/Social history : Past tobacco abuse, no EtOH intake, jail resident Admission Exam (Per Admitting) Constitutional GENERAL: Demented, no respiratory distress, lying on the right lateral decubitus position SKIN: Normal color, warm HEENT: [place] palpebral conjunctivae, no ptosis, dry buccal mucosa NECK : Supple, no tenderness CHEST : Decreased breath sounds, no tenderness HEART : RRR, no obvious murmurs ABDOMEN: Some distention, nontender EXTREMITIES : No LE swelling/tenderness, no other conspicuous deformities noted NEUROLOGIC : Demented, no facial asymmetry, gait and stance not assessed Discharge Data Consultations 03/20/21 08:37 Consult Neurology Routine Procedures Performed CT SCAN OF THE BRAIN WITHOUT IV CONTRAST CLINICAL HISTORY: Generalized weakness. Change in mental status. COMPARISON STUDY: CT of the brain dated 01/21/2021. TECHNIQUE: Unenhanced axial CT scan of the brain is performed from the vertex to the skull base. A dose lowering technique was utilized adhering to the principles of ALARA. The patient was scanned twice due to significant motion artifact. CT DOSE: 1228.53 mGy.cm FINDINGS: Brain parenchyma: There is a large acute on chronic subdural hemorrhage along the left convexity with mixed attenuation blood products. This measures up to 2.9 cm in maximum dimension and effaces the subjacent cortical sulci. This effaces the left lateral ventricle, and there is 6 mm of [id number] midline shift. There are age-related involutional changes noting mild to moderate subcortical and periventricular microangiopathic change. No parenchymal hematoma is identified. There is no evidence of acute territorial ischemia by CT criteria. Bhatti-white matter differentiation is preserved. Ventricles, sulci, cisterns: Prominent secondary to involutional change. See above. Intracranial vasculature: There is atherosclerotic calcification of the cavernous carotid and vertebral arteries. Calvarium: The skeletal structures are osteopenic. Subacute fractures of the right temporal and occipital bones are again noted. No depressed calvarial fr acture is seen. Sinuses and mastoids: The visualized paranasal sinuses are clear. There is a right mastoid effusion. The left mastoid air cells are well pneumatized. Orbits: The bony orbits are grossly intact. There are bilateral ocular lens implants. IMPRESSION: 1. There is a large acute on chronic subdural hemorrhage along the left convexity as detailed above. 2. This effaces the subjacent cortical sulci and the left lateral ventricle with 6 mm of [id number] midline shift. 3. There is no evidence of acute territorial ischemia by CT criteria. 4. Subacute fractures of the right occipital and temporal bones are again noted with a right mastoid effusion. ACT 112: Negative or not required by law. Electronically signed by: Alex Cline M.D. 03/19/2021 7:[address] head/brain wo con CLINICAL HISTORY: ff up subdural hematoma COMPARISON STUDY: 03/21/2021 CT DOSE: 537.48 mGy.cm TECHNIQUE: Standard CT of the Brain was performed without IV contrast. A dose lowering technique was utilized adhering to the principles of ALARA. FINDINGS: Extraaxial space: There is again a large, acute to subacute upon chronic subdural hematoma on the left. Again measures approximately 28 cm in greatest width. There is again surrounding cerebral edema with compression upon the lateral horn of the left lateral ventricle. There is again evidence for midline shift of approximately 7 mm. There are no other extra-axial fluid collections. Ventricles and cisterns: The ventricles are again mildly to moderately dilated bilaterally. There is no evidence for midline shift or mass effect. Parenchyma: There is no subarachnoid or intraparenchymal hemorrhage. There is no evidence for an acute infarct or cerebral edema. There is mild cerebral cortical atrophy and decreased attenuation in the periventricular white matter representing remote small vessel disease. There are no gross mass lesions. Osseous structures: Subacute fractures of the right occipital and temporal bones are again seen with fluid present in the right mastoid air cells. The visualized paranasal sinuses are clear. Left mastoid air cells are clear. Soft tissues: There is no evidence for focal soft tissue swelling. IMPRESSION: 1. No significant interval change in acute to subacute large right subdural hematoma superimposed on chronic subdural hematoma. 2. There is again surrounding cerebral edema with compression upon the lateral lower left lateral ventricle and approximately 7 mm midline shift to the right again seen. 3. Cerebral cortical atrophy and remote small vessel disease. 4. Subacute fractures of the right temporal and occipital bones are again seen. Fluid is present within the right mastoid air cells. ACT 112: Negative or not required by law. Hospital Course (1) SDH (subdural hematoma): (2) Midline shift of brain: Acute on chronic Subdural Hematoma hx traumatic subdural hematoma secondary to fall December, - repeat CT head: 1. Redemonstration of the acute on chronic left-sided subdural hematoma. This measures up to 2.8 cm in thickness and is similar to the prior study. 2. There is associated 8 mm of right midline shift which is also similar to the prior study. Continued follow-up recommended. 3. Right occipital/temporal bone fractures are again noted. - repeat CT head 03/21 : stable repeat CT head 03/24: stable - no surgical intervention as per family Neuro consulted- recommend Decadron 2mg BID x 21 days, tolerating well so far -Patient mental status much better compared to admission, more awake and alert, pleasantly confused No new neurologic symptoms noted - continue Decadron 2mg BID x 14 days, then taper gradually then STOP No antiplatelets, anticoagulation, NSAIDs Hypertension - Lisinopril 2.5mg po daily started--> increased to 5mg daily BP improved monitor daily Pressure ulcers of R lateral and R lateral distal knee, stage 3, POA -Continue daily wound care Complicated UTI, Ruled out - Urine culture negative Dementia - seems to be at baseline DVT prophylaxis. - SCDs Re: Traumatic ICH DNR as per patient's prior directives as per son/POA, Mr. Edgardo Lagunas. Disposition transition to [facility] ff up with PCP in 1 week
[2021-03-26] MEDS: DOCUSATE SODIUM 100 MG CAP PO SCH (12:55)
[2021-03-26] MEDS: SERTRALINE HCL 50 MG TABLET PO SCH (12:56)
--- NOTE | 2021-03-26 16:08 | Hospitalist Progress Note ---
Date of Service March 26, 2021 Assessment & Plan (1) SDH (subdural hematoma): (2) Midline shift of brain: Plan: Acute on chronic Subdural Hematoma hx traumatic subdural hematoma secondary to fall December, - repeat CT head: 1. Redemonstration of the acute on chronic left-sided subdural hematoma. This measures up to 2.8 cm in thickness and is similar to the prior study. 2. There is associated 8 mm of right midline shift which is also similar to the prior study. Continued follow-up recommended. 3. Right occipital/temporal bone fractures are again noted. - repeat CT head 03/21 : stable repeat CT head 03/24: stable - no surgical intervention as per family Neuro consulted- recommend Decadron 2mg BID x 21 days, tolerating well so far -Patient mental status much better compared to admission,alert, pleasantly confused No new neurologic symptoms noted - continue Decadron 2mg BID x 14 days, then taper gradually then STOP No antiplatelets, anticoagulation, NSAIDs Hypertension - Lisinopril 2.5mg po daily started--> increased to 5mg daily BP improved monitor daily Pressure ulcers of R lateral and R lateral distal knee, stage 3, POA -Continue daily wound care Complicated UTI, Ruled out - Urine culture negative Dementia - seems to be at baseline DVT prophylaxis. - SCDs Re: Traumatic ICH DNR as per patient's prior directives as per son/POA, Mr. Edgardo Lagunas. Disposition transition to [facility] ff up with PCP in 1 week Admission and Anticipated Discharge Date Admission Date: March 19, 2021 Subjective ff up for SDH, etc seen sitting up in bed, comfortable, alert smiling pleasantly confused no headache, dizziness, new neuro symptoms no dyspnea, chest pain or any pain no other symptoms had 25% of breakfast no other issues per psych arnp of Systems Review of Systems: all noted and negative except for above Physical Exam Physical Exam: General- oriented x 0, not in distress, Eyes- anicteric Neck- no JVD Lungs- clear breath sounds, no rales or wheezing bilaterally Heart- normal rate, regular rhythm; no murmurs Abdomen- normal bowel sounds, nondistended, soft, no tenderness Extremities- no pretibial edema, no calf tenderness Neuro- alert, oriented x 0; no new gross focal neurologic deficits Skin- warm & dry Results & Data Results & Data ([facility]) Vital Signs (Past 12 Hours) Vital Signs Temp Pulse Pulse Pulse Resp BP BP 03/26/21 16:01 36.4 C L 68 120 H 18 154/92 H 03/26/21 15:25 36.4 C L 120 H 18 90/57 L 03/26/21 11:35 36.8 C 71 18 159/90 H 03/26/21 10:23 36.3 C L 68 18 154/92 H 03/26/21 07:52 36.3 C L 105 H 18 161/77 H 03/26/21 07:14 75 Pulse Ox 03/26/21 16:01 95 03/26/21 15:25 95 03/26/21 11:35 95 03/26/21 10:23 92 03/26/21 07:52 92 03/26/21 07:14 all noted and reviewed including below
== END 2021-03-26 16:25 | disposition home or self-care (01) | DRG 64 ==
LOC: ED 17:37 → SUATTDRO 23:30 → EDINP 23:30 → 2N 03-20 20:50

== ENCOUNTER 2021-09-23 19:43 | Inpatient (IN) ==
--- NOTE | 2021-09-23 20:15 | Emergency Department Note ---
Impression & Plan Fall, SDH (subdural hematoma), Compression fx, lumbar spine ED Provider Note NAME: ABRAHAM MAXWELL AGE: 86 SEX: F : 1935 ARRIVES VIA: Ambulance INFORMANT: Patient, EMS ED PROVIDER(S): Thang Felton DO CHIEF COMPLAINT: Fall HPI: The patient is an 86-year-old female who presented to the emergency department from her dementia unit from her personal longterm for an evaluation after a fall. Apparently the patient was in a shower chair when she fell out of the chair onto her back. It is unclear if the patient had a very significant fall. The patient self does not offer any complaints but on exam she reportedly had some back pain. It is unclear if she struck her head. Is unclear if she had a loss of consciousness. The patient herself does not offer any other complaints. Apparently she was able to stand with assistance. He also suffered a small laceration to her left elbow. This was dressed prior to arrival. ROS: See above HPI for pertinent positives & negatives. A total of 10 systems reviewed and were otherwise negative. PAST MEDICAL HISTORY: See Below PAST SURGICAL HISTORY: See Below FAMILY HISTORY: See Below SOCIAL HISTORY: See Below HOME MEDICATIONS: See Below ALLERGIES: See Below VITALS: See Below PHYSICAL EXAMINATION: GENERAL: The patient is awake and alert. She does not appear to be uncomfortable. EYES: The conjunctivae are clear. The pupils are round and reactive. EARS, NOSE, MOUTH AND THROAT: The nose is without any evidence of any deformity. NECK: The neck is nontender and supple. RESPIRATORY: Normal respiratory effort is noted there is no evidence of wheezing rhonchi or rales CARDIOVASCULAR: Regular rate and rhythm noted there no murmurs rubs or gallops normal S1 normal S2. GASTROINTESTINAL: The abdomen is soft. Abdomen is nontender. BACK: Midline tenderness was appreciated but there is no step-off or ecchymosis noted. MUSCULOSKELETAL/EXTREMITIES: There is no evidence of gross deformity full range of motion is noted in the hips and shoulders. SKIN: There is no obvious evidence of any rash. There are no petechiae, pallor or cyanosis noted. There is a small abrasion noted to the lateral left elbow. NEUROLOGIC: Patient is awake oriented to person but not place or time. Strength is symmetric. Patient is moving all extremities well. MEDICAL DECISION MAKING: The patient is an 86-year-old female who presented to the emergency department for an evaluation after fall. The history was somewhat limited given the patient's dementia for this reason radiographic studies were obtained. The patient was found to have compression fractures in her lumbar spine as well as a pelvic fracture. There is appear to be old. She also appears to have a subdural hematoma which also appears to be chronic however there may be some acute findings according to the radiologist. I discussed the patient's radi ographic studies with her. I also discussed her case with her son via telephone. He states that he would prefer that she is not transferred as this is likely sequelae from her previous falls. He also states that she would not want to have neurosurgery or CPR or intubation. This reason we discussed the case with the outsole caser to determine if the patient could have outpatient repeat scans however we were unable to obtain outpatient follow-up for this reason I [facility] the [facility] Nursing notes reviewed. Prior medical records reviewed Vital Signs: reviewed and remarkable for no significant abnormalities Differential diagnosis: Fracture, dislocation, contusion, intra-abdominal, pneumothorax, intrathoracic, intracranial, neurologic, compartment syndrome, rhabdomyolysis, as well as other pathologies. ER treatment provided: See below Diagnostics interpreted by me: ECG: none Laboratory studies: As stated above and show below. Imaging studies: See below Consultation(s): I discussed this case with Dr. Esquivel who is [facility]. Past Med/Surg History Medical History Alzheimer disease Bullous pemphigoid Hypothyroidism Surgical History History of thyroidectomy History of tonsillectomy and adenoidectomy Family History Other Stroke Social History Smoking Status: Never smoker Tobacco Type: Cigarettes and Pipe Hx Alcohol Use: No Hx Substance Use: No Preferred Language: Guamanian Communication Ability: Effective Host/Hostess Required: No Beliefs That Will Affect Care: None marital status: / Current Living Situation: [facility] Feels Safe at Home: Yes Assistive Devices: None Allergies Allergies Allergy/AdvReac Type Severity Reaction Status Date / Time cefepime Allergy Mild itch Verified 03/20/21 01:49 shellfish derived Allergy Unknown ON Verified 03/19/21 18:32 [facility] Home Meds Home Medications Medication Instructions Recorded Confirmed docusate sodium 100 mg capsule 100 mg PO BID 01/06/21 03/19/21 (Colace) levothyroxine 88 mcg tablet 88 mcg PO DAILYBB 01/06/21 03/19/21 memantine ER 28 mg-donepezil 10 mg 1 cap PO HS 01/06/21 03/19/21 capsule sprinkle,ext.release 24 hr (Namzaric) sertraline 50 mg tablet 50 mg PO QDL 01/06/21 03/19/21 triamcinolone acetonide 0.1 % 1 applic topical BID 01/06/21 03/19/21 topical ointment acetaminophen 325 mg tablet 650 mg PO Q4H PRN FEVER/PAIN 03/19/21 03/19/21 (Tylenol) food supplemt, lactose-reduced 1 ea PO BID 03/19/21 03/19/21 (Ensure oral liquid) hydroxyzine HCl 50 mg tablet 50 mg PO QID PRN Anxiety 03/19/21 03/19/21 nystatin 100,000 unit/gram topical 1 applic topical BID PRN 03/19/21 03/19/21 powder RASH/IRRITATION polyethylene glycol 3350 17 17 g PO QDL PRN Constipation 03/19/21 03/19/21 gram/dose oral powder (Miralax) sennosides 8.6 mg-docusate sodium 1 tab-cap PO QDL PRN Constipation 03/19/21 03/19/21 50 mg tablet (Senna-S) Previous Rx's Medication Instructions Recorded pantoprazole 40 mg tablet,delayed 40 mg PO QAM #30 tabs 03/26/21 release Results & Data (ED) Vital Signs Vital Signs - 24 hr 09/23/21 19:49 09/23/21 20:12 Temperature 37 C Temperature Source Oral Pulse Rate 74 Pulse Rate [Apical] 72 Pulse Rhythm [Apical] Regular Respiratory Rate 16 18 Blood Pressure 132/69 Blood Pressure Mean 90 Pulse Oximetry 96 99 Oxygen Delivery Method Room Air Room Air Sepsis Recent Fever Within 48 Hours No Sepsis New/Unexplained Change in Mental Status N/A Sepsis Action Taken by Nursing No Action Required Home Medications Current Medication List: was personally reviewed by me Laboratory Data Attestation: I reviewed the patient's lab results. Imaging Data Attestation: I personally reviewed and interpreted this imaging study as follows: My Impression: X-ray of the pelvis was obtained in the emergency department. There is no apparent hip fracture noted. There was a superior and inferior pubic rami fracture which appears to be healed and old. There is no acute fracture definitely noted. Lumbosacral x-rays were obtained in the emergency department. My interpretation is compression fracture of L4. Compression fracture of L2 with previous cementing. 1 view chest x-ray was obtained the emergency department. My interpretation is no acute disease, no free air. Radiologist's Impression: Cervical Spine CT 09/23/21 19:55 CT cervical spine wo con CLINICAL HISTORY: Status post fall with neck pain COMPARISON STUDY: 01/06/2021 CT DOSE: 807.62 mGy.cm TECHNIQUE: Standard CT of the Cervical Spine was performed without IV contrast. A dose lowering technique was utilized adhering to the principles of ALARA. FINDINGS: Bones: The bones are osteopenic. Compared to the previous examination, there is again evidence for anterolisthesis of C3 on C4 by approximately 5 mm. This is unchanged and degenerative in nature. There is no evidence for an acute fracture or malalignment. The heights of the vertebral bodies are maintained. The remaining cervical vertebral bodies are in anatomic alignment. The odontoid is intact and the atlantoaxial articulation is within normal limits. Disc spaces: Moderate to marked disc space narrowing is present from C3 through C7 with minimal endplate sclerosis and osteophyte formation present. Apophyseal joints: Degenerative apophyseal joint disease is seen particularly at C3-4. Soft tissues: The prevertebral soft tissues are within normal limits. IMPRESSION: 1. Osteopenia with no acute osseous pathology. 2. Stable degenerative anterolisthesis of C3 on C4. 5. Degenerative disc and degenerative joint disease. ACT 112: Negative or not required by law. Electronically signed by: Sherwin Batista M.D. 09/23/2021 8:[address] 09/23/21 19:55 CT head/brain wo con CLINICAL HISTORY: Status post fall with pain . Previous subdural hematoma COMPARISON STUDY: 03/24/2021 CT DOSE: TECHNIQUE: Standard CT of the Brain was performed without IV contrast. A dose lowering technique was utilized adhering to the principles of ALARA. FINDINGS: Extraaxial space: Compared to the previous examination, there is a small residual subacute to chronic subdural hematoma present on the left. It measures only 5 mm in greatest thickness on the current study. No acute subdural hematomas present. There are no extra-axial fluid collections. Ventricles and cisterns: The ventricles are again mildly to moderately dilated bilaterally. There is no evidence for midline shift or mass effect. Parenchyma: There is no subarachnoid or intraparenchymal hemorrhage. There is no evidence for an acute infarct or cerebral edema. There is mild cerebral cortical atrophy and decreased attenuation in the periventricular white matter representing remote small vessel disease. There are no gross mass lesions. Osseous structures: There is no evidence for an acute fracture. The visualized paranasal sinuses are clear. The mastoid air cells are clear bilaterally. Soft tissues: There is no evidence for focal soft tissue swelling. IMPRESSION: 1. No acute intracerebral pathology. 2. Compared to the previous study, there is a small residual subacute to chronic subdural hematoma on the left measuring 5 mm. There is no residual mass effect or midline shift. 3. Cerebral cortical atrophy and remote small vessel disease are again. ACT 112: Negative or not required by law. Electronically signed by: Sherwin Batista M.D. 09/23/2021 8:32 PM Discharge Plan Visit Data Chief Complaint: Fall ED Provider: Thang Felton Discharge Problem: Fall, SDH (subdural hematoma), Compression fx, lumbar spine Patient Disposition: Being Evaluated by Hospitalist Forms Stand Alone Forms: My [facility] Prescriptions Prescriptions: No Action levothyroxine 88 mcg tablet 88 mcg PO DAILYBB triamcinolone acetonide 0.1 % ointment 1 applic TOPICAL BID Rx Instructions: AT 0700 & 2000 docusate sodium [Colace] 100 mg Capsule 100 mg PO BID Rx Instructions: TAKES AT 1200 & 1700 sertraline 50 mg tablet 50 mg PO QDL Namzaric 28-10 mg capsule,sprinkle,ER 24hr 1 cap PO HS acetaminophen [Tylenol] 325 mg Tablet 650 mg PO Q4H MDD 3 GRAMS/24 HOURS PRN (Reason: FEVER/PAIN) sennosides-docusate sodium [Senna-S] 8.6-50 mg Tablet 1 tab-cap PO QDL PRN (Reason: Constipation) hydroxyzine HCl 50 mg tablet 50 mg PO QID PRN (Reason: Anxiety) nystatin 100,000 unit/gram powder 1 applic TOPICAL BID PRN (Reason: RASH/IRRITATION) polyethylene glycol 3350 [Miralax] 17 gram/dose Powder 17 g PO QDL PRN (Reason: Constipation) Ensure Liquid 1 ea PO BID Rx Instructions: TAKES AT 1200 & 1700 pantoprazole 40 mg Tablet,Delayed Release (Dr/Ec) 40 mg PO QAM Qty: 30 0RF Referrals Referrals: Tova Vargas [Primary Care Provider] -
--- NOTE | 2021-09-23 20:34 | CT Scan Report ---
CT head/brain wo con CLINICAL HISTORY: Status post fall with pain . Previous subdural hematoma COMPARISON STUDY: 03/24/2021 CT DOSE: TECHNIQUE: Standard CT of the Brain was performed without IV contrast. A dose lowering technique was utilized adhering to the principles of ALARA. FINDINGS: Extraaxial space: Compared to the previous examination, there is a small residual subacute to chronic subdural hematoma present on the left. It measures only 5 mm in greatest thickness on the current st udy. No acute subdural hematomas present. There are no extra-axial fluid collections. Ventricles and cisterns: The ventricles are again mildly to moderately dilated bilaterally. There is no evidence for midline shift or mass effect. Parenchyma: There is no subarachnoid or intraparenchymal hemorrhage. There is no evidence for an acut e infarct or cerebral edema. There is mild cerebral cortical atrophy and decreased attenuation in the periventricular white matter representing remote small vessel disease. There are no gross mass lesio ns. Osseous structures: There is no evidence for an acute fracture. The visualized paranasal sinuses are clear. The mastoid air cells are clear bilaterally. Soft tissues: There is no evidence for focal soft tissue swelling. IMPRESSION: 1. No acute intracerebral pathology. 2. Compared to the previous study, there is a small residual subacute to chronic subdural hematoma on the left measuring 5 mm. There is no residual mass effect or midline shift. 3. Cerebral cortical atrophy and remote small vessel disease are again. ACT 112: Negative or not required by law. Electronically signed by: Sherwin Batista M.D. 09/23/2021 8:32 PM
--- NOTE | 2021-09-23 20:38 | CT Scan Report ---
CT cervical spine wo con CLINICAL HISTORY: Status post fall with neck pain COMPARISON STUDY: 01/06/2021 CT DOSE: 807.62 mGy.cm TECHNIQUE: Standard CT of the Cervical Spine was performed without IV contrast. A dose lowering steve hnique was utilized adhering to the principles of ALARA. FINDINGS: Bones: The bones are osteopenic. Compared to the previous examination, there is again evidence for an terolisthesis of C3 on C4 by approximately 5 mm. This is unchanged and degenerative in nature. There is no evidence for an acute fracture or malalignment. The heights of the vertebral bodies are maintai rudy. The remaining cervical vertebral bodies are in anatomic alignment. The odontoid is intact and th e atlantoaxial articulation is within normal limits. Disc spaces: Moderate to marked disc space narrowing is present from C3 through C7 with minimal endpl ate sclerosis and osteophyte formation present. Apophyseal joints: Degenerative apophyseal joint disease is seen particularly at C3-4. Soft tissues: The prevertebral soft tissues are within normal limits. IMPRESSION: 1. Osteopenia with no acute osseous pathology. 2. Stable degenerative anterolisthesis of C3 on C4. 5. Degenerative disc and degenerative joint disease. ACT 112: Negative or not required by law. Electronically signed by: Sherwin Batista M.D. 09/23/2021 8:36 PM
[2021-09-23 22:39] LABS: Basophils # (auto) 0.06 K/uL (0-0.2); Basophils % (auto) 0.5 %; Eosinophils # (auto) 0.71 K/uL (0-0.50); Eosinophils % (auto) 6.3 %; Hematocrit (blood only) 36.5 % (34.1-44.9); Hemoglobin 11.8 g/dl (12.0-16.0); Immature Granulocytes # (auto) 0.08 K/uL (0.00-0.02); Immature Granulocytes % (auto) 0.7 %; Lymphocytes # (auto) 2.18 K/uL (1.2-3.4); Lymphocytes % (auto) 19.2 %; Mean Corpuscular Hemoglobin 30.6 pg (25.0-34.0); Mean Corpuscular Hgb Conc 32.3 g/dL (32.0-36.0); Mean Corpuscular Volume 94.8 fL (80.0-100.0); Mean Platelet Volume 9.3 fL (9.4-12.3); Monocytes # (auto) 0.93 K/uL (0.24-0.82); Monocytes % (auto) 8.2 %; Neutrophils % (auto) 65.1 %; Platelet Count 383 K/uL (130-400); RDW Coefficient of Variation 13.2 % (11.5-14.5); RDW Standard Deviation 46.5 fL (36.4-46.3); Red Blood Count 3.85 M/uL (3.93-5.22); White Blood Count 11.36 K/ul (4.8-10.8)
[2021-09-23 22:58] LABS: Albumin Globulin Ratio 1.3 (0.9-2); Albumin Level 3.7 gm/dl (3.4-5.0); BUN Creatinine Ratio 26.2 (10-20); Bilirubin,Total 0.2 mg/dl (0.2-1.0); Est GFR (Non-African American) 49.2 ml/min; Globulin 2.8 gm/dl (2.5-4.0); Potassium 4.4 mmol/L (3.5-5.1); Total Protein 6.5 gm/dl (6.0-8.3)
[2021-09-23 23:26] LABS: Partial Thromboplastin Ratio 0.8; Partial Thromboplastin Time 21.6 Seconds (21.0-31.0); Prothrombin Time 10.6 Seconds (9.0-12.0)
[2021-09-24] MEDS ORDERED: DOCUSATE SODIUM/SENNA 50/8.6MG TAB PO PRN (01:26)
[2021-09-24] MEDS ORDERED: ACETAMINOPHEN 325 MG TAB PO PRN (01:26)
[2021-09-24] MEDS ORDERED: POLYETHYLENE (MIRALAX) 17 GM PACK PO PRN ×2 (01:26)
[2021-09-24] MEDS ORDERED: LORazepam 0.5 MG TAB PO PRN (01:26)
[2021-09-24] MEDS ORDERED: NYSTATIN POWDER 15GM BTL EXT PRN (01:26)
[2021-09-24] MEDS ORDERED: NITROGLYCERIN SL 0.4 MG/TAB TAB SL PRN (01:26)
[2021-09-24] MEDS ORDERED: hydrOXYzine HCl 25 MG TAB PO PRN (01:26)
[2021-09-24] MEDS ORDERED: SODIUM CHLORIDE 0.45 % 1,000 ML IV SCH (01:26)
--- NOTE | 2021-09-24 03:14 | History and Physical Report ---
DATE OF ADMISSION: 09/23/2021. CHIEF COMPLAINT: Fall. HISTORY OF PRESENT ILLNESS: This is an 86-year-old female, a resident of [facility] dementia unit with past medical history significant for dementia, hypertension, history of traumatic subdural hematoma, subarachnoid hemorrhage, postsurgical hypothyroidism, mood disorder, bullous pemphigoid, past tobacco abuse, presents with a fall. As per the nursing staff, she was getting shower and sitting on a shower chair when she fell, hit her head and her back. No loss of consciousness. That is the reason, she was brought to ER.. As per skilled nursing, the patient has been oriented to name only. She ambulates with a walker. Eats regular food. She is DNR. In the ER, her labs showed WBC of 11.3. Rest of the labs are okay. COVID is negative. CT of the head showing small residual subacute to chronic subdural hematoma in the left measuring 5 mm. No residual mass effect or midline shift. Getting admitted for followup with a repeat CT scan. The patient is alert and awake, can tell her name, could not tell her date of , does not know where she is. Denies any headache, denies any chest pain. Denies any nausea or abdominal pain. Could not get much history from the patient. Talked to her son, who ok with observation and he also states the patient is DNR. ALLERGIES: TO CEFEPIME AND SHELLFISH. PAST MEDICAL HISTORY: As mentioned above. PAST SURGICAL HISTORY: Tonsillectomy, adenoidectomy, thyroidectomy. FAMILY HISTORY: Significant for stroke. SOCIAL HISTORY: Past tobacco abuse. No alcohol abuse. Current skilled nursing resident. MEDICATIONS: The patient is on Tylenol 650 mg p.o. q.4 hours p.r.n. for pain or fever, Colace 100 mg p.o. b.i.d., donepezil 10 mg p.o. daily, Ensure 1 can p.o. b.i.d., hydroxyzine 50 mg p.o. q.i.d. p.r.n., levothyroxine 88 mcg p.o. daily, lisinopril 5 mg p.o. daily, lorazepam 0.5 mg p.o. q. 6 hours p.r.n., memantine 28 mg p.o. daily, nystatin topical b.i.d. p.r.n., Protonix 40 mg p.o. daily, MiraLax 17 g p.o. daily p.r.n., Senna-S one tablet p.o. daily p.r.n., sertraline 50 mg p.o. daily p.r.n., triamcinolone topical b.i.d. REVIEW OF SYSTEMS: Could not get review of systems as the patient has dementia. PHYSICAL EXAMINATION: GENERAL: The patient is old and frail, not in acute distress. VITAL SIGNS: Temperature 37, pulse 70, respiratory rate 15, blood pressure 132/69, oxygen 93% on room air. HEENT: Pupils equal, round and reactive to light. Oral mucosa moist. NECK: No JVD, no neck masses. CARDIOVASCULAR: S1 and S2 heard. Regular rate and rhythm. No murmur, no gallop. RESPIRATORY SYSTEM: Normal AP diameter. No accessory muscle use. No wheezing, no crackles. ABDOMEN: Soft, bowel sounds present, nontender, no distention. CENTRAL NERVOUS SYSTEM: Alert and awake, oriented to name only. Speech is okay. No facial droop. Obeys simple commands. Moves extremities. EXTREMITIES: No edema, no erythema. LABORATORY DATA: WBC 11.3, hemoglobin 11.8, hematocrit 36.5, platelets 383. PT 10.6, INR 1, APTT 21.6. Sodium 137, potassium 4.4, chloride 103, bicarbonate 27, BUN 27, creatinine 1.03, serum glucose 89, calcium 9, total bilirubin 0.2, AST 26, ALT 25, alkaline phosphatase 78, lipase 197. SARS-CoV-2 rapid test negative. IMAGING DATA: CT of the head showing no acute intracerebral pathology. Compared to the previous study, there is a small residual subacute to chronic subdural hematoma on the left measuring 5 mm. There is no residual mass effect or midline shift. Central cortical opacity and remote small vessel disease. Cervical spine CT, osteopenia with no acute osseous pathology, stable degeneration of anterolisthesis of C3 on C4, degenerative disk and degenerative joint disease. ASSESSMENT AND PLAN: This is an 86-year-old coming from the [facility] unit with fall. 1. Fall from a shower chair: CAT scan showing left subdural hematoma 5 mm with no mass effect. The patient in March had again acute on chronic subdural hematoma. Treated with Decadron. Will follow with repeat CT head in the a.m. Consult neurology. 2. Hypertension: On lisinopril. We will monitor the blood pressure. 3. Dementia: On donepezil, memantine. 4. Gastroesophageal reflux disease: On Protonix. 5. Depression: On Zoloft. 6. Hypothyroidism: On Synthroid. 7. Anxiety: On Ativan p.r.n. 8. Deep venous thrombosis prophylaxis: SCDs for now. DISPOSITION: Closely monitor in the med tele. PT/OT prior to discharge. Social service to help with discharge planning. CODE STATUS: DNR/DNI as per discussion with skilled nursing and the son. Job ID: [id number] MTDD
[2021-09-24 05:54] LABS: Basophils # (auto) 0.08 K/uL (0-0.2); Basophils % (auto) 0.7 %; Eosinophils # (auto) 0.97 K/uL (0-0.50); Eosinophils % (auto) 8.3 %; Hematocrit (blood only) 34.2 % (34.1-44.9); Hemoglobin 11.4 g/dl (12.0-16.0); Immature Granulocytes # (auto) 0.07 K/uL (0.00-0.02); Immature Granulocytes % (auto) 0.6 %; Lymphocytes # (auto) 2.19 K/uL (1.2-3.4); Lymphocytes % (auto) 18.7 %; Mean Corpuscular Hemoglobin 31.1 pg (25.0-34.0); Mean Corpuscular Hgb Conc 33.3 g/dL (32.0-36.0); Mean Corpuscular Volume 93.2 fL (80.0-100.0); Mean Platelet Volume 9.3 fL (9.4-12.3); Monocytes # (auto) 1.06 K/uL (0.24-0.82); Neutrophils # (auto) 7.37 K/uL (1.4-6.5); Neutrophils % (auto) 62.7 %; Platelet Count 320 K/uL (130-400); RDW Coefficient of Variation 13.1 % (11.5-14.5); RDW Standard Deviation 45.1 fL (36.4-46.3); Red Blood Count 3.67 M/uL (3.93-5.22); White Blood Count 11.74 K/ul (4.8-10.8)
[2021-09-24 06:17] LABS: BUN Creatinine Ratio 24.5 (10-20); Calcium 8.7 mg/dl (8.5-10.1); Creatinine Clr Calc Pharmacy 29.2 ml/min; Est GFR (African American) 57.7 ml/min; Est GFR (Non-African American) 49.8 ml/min; Magnesium 2.1 mg/dl (1.7-2.4); Potassium 4.2 mmol/L (3.5-5.1)
[2021-09-24] MEDS: LEVOTHYROXINE SODIUM 88 MCG TABLET PO SCH (06:24)
--- NOTE | 2021-09-24 07:45 | XRay Report ---
XR lumbar spine 2-3V CLINICAL HISTORY: fall TECHNIQUE: 3 views of the lumbar spine were obtained. Comparison: None available at the time of this dictation. FINDINGS: There are compression deformities of L2 and L4. Cement arthroplasty is seen at L2. Degenerative robles es are seen in the lumbar spine. Grade 1 anterolisthesis of L4-L5 is seen. Vascular calcifications ar e noted. IMPRESSION: Compression deformities of L2 and L4 with anterolisthesis of L4 on L5. No definite acute fracture is seen however superimposed acute fracture cannot be excluded. Correlation with point tenderness is rec ommended. ACT 112: Negative or not required by law. Electronically signed by: Mina Oconnell M.D. 09/24/2021 7:44 AM
--- NOTE | 2021-09-24 07:48 | XRay Report ---
XR pelvis 1-2V routine CLINICAL HISTORY: fall TECHNIQUE: A single frontal view of the pelvis was obtained. Comparison: None available at the time of this dictation. FINDINGS: There is a comminuted fracture of the right pubic body and inferior pubic ramus. Degenerative changes are seen in the hip joints and lumbar spine. No soft tissue abnormality is seen. IMPRESSION: Comminuted fracture of the right pubic body and inferior pubic ramus. ACT 112: Negative or not required by law. Electronically signed by: Mina Oconnell M.D. 09/24/2021 7:47 AM
--- NOTE | 2021-09-24 08:06 | XRay Report ---
XR chest 1V portable CLINICAL HISTORY: fall TECHNIQUE: Single frontal radiograph of the chest was obtained. Comparison: None available at the time of this dictation. FINDINGS: Exam is limited by patient rotation. Cardiomegaly is noted. The lungs are clear. No evidence of pleur al effusion or pneumothorax. Please see lumbar spine radiographs for findings of the spine. IMPRESSION: No acute chest disease. Cardiomegaly is noted. ACT 112: Negative or not required by law. Electronically signed by: Mina Oconnell M.D. 09/24/2021 8:05 AM
--- NOTE | 2021-09-24 08:12 | CT Scan Report ---
CT head/brain wo con CLINICAL HISTORY: 86 years-old Female with fall. SDH. Acute head trauma status post fall. Left-sided subdural collection TECHNIQUE: Multiple axial CT images of the head were obtained without contrast. A dose lowering tech nique was utilized adhering to the principles of ALARA. CT DOSE: 537.48 mGy.cm COMPARISON: Head CT 2019 2:16 PM FINDINGS: Stable size of the subacute subdural hematoma layering along the left cerebral convexity measuring up to 5 mm transversely. No midline shift or hydrocephalus. The study is mildly motion degraded. Involu tional changes with chronic microvascular ischemic disease. The calvarium is intact. Prior bilateral lens repair. The paranasal sinuses, mastoid air cells, and m iddle ear cavities are clear. IMPRESSION: Unchanged size of the small subacute left-sided subdural hematoma measuring up to 5 mm. No midline shift. ACT 112: Negative or not required by law. The above report was generated using voice recognition software. It may contain grammatical, syntax o r spelling errors. Electronically signed by: Peter Gaffney M.D. 09/24/2021 8:10 AM
[2021-09-24] MEDS: PANTOprazole 40 MG TAB PO SCH (08:34)
[2021-09-24] MEDS: lisinopril 5 MG TAB PO SCH (08:34)
[2021-09-24] MEDS: TRIAMCINOLONE ACET 0.1% OINT 15 GM TUBE TOP SCH ×2 (08:34→20:12)
[2021-09-24] MEDS: DONEPEZIL HCL 10 MG TAB PO SCH (08:34)
[2021-09-24] MEDS ORDERED: NON-FORMULARY MEDICATION (Food Supplemt, Lactose-Reduced [Ensure] Liquid) PO SCH (09:00)
--- NOTE | 2021-09-24 09:14 | Neurology Consultation ---
Date of Consultation September 24, 2021 Assessment & Plan (1) SDH (subdural hematoma): (2) Alzheimer disease: Plan 86-year-old female with advanced Alzheimer's dementia and a history of traumatic subarachnoid hemorrhage/left frontal subdural hematoma, right occipital temporal bone fractures, occurring in December 2020. Patient's intracranial hemorrhage did not require surgical treatment and has continued to improve on subsequent follow-up imaging. Most recent head CT's done in the context of this current admission to the [facility], continue to reveal significant improvement and stability of the previously identified intracranial hemorrhage. No new or interval hemorrhage identified. Additional head CTs or imaging surveillance of this patient's intracranial hemorrhage is not necessary at this point in time. No need for prophylactic anticonvulsant medication. No need for EEG. Patient may continue with donepezil and memantine for management of her Alzheimer's dementia. I do not have any further recommendations for this issue. Patient may follow-up with other providers who are managing her dementia. History of Present Illness Reason for Consultation: SDH Requesting Physician: Cristhian Esquivel MD Attending Physician: Gabby Mccray MD History of Present Illness The patient is an 86-year-old female with a history of Alzheimer's dementia with associated behavioral disturbance with a history of traumatic subarachnoid hemorrhage and acute left frontal subdural hematoma occurring in December 2020 in the context of a fall. Surgical intervention was not required, she has followed with the local [facility] neurology service. She was admitted again to the [facility] this past March for generalized pain, the [facility] neurology service was consulted again for assistance regarding her history of subdural hematoma. At that point in time, the subdural hematoma measured 2.8 cm in thickness, similar to prior study, there was associated 8 mm of [id number] midline shift as well, also similar to the previous study. Right occipital/temporal bone fracture is also again seen. Again, no surgical intervention have been planned. The patient presented to the emergency department yesterday, from the dementia unit of her personal custodial, for further evaluation after a fall. She apparently fell out of a shower chair onto her back. Not entirely clear if she sustained any significant injuries. Patient offered no specific complaints. Unclear if she struck her head or if there was an associated loss of consciousness. She has been able to stand with assistance. She had a small laceration of the left elbow. A CT of the head completed yesterday, at the time of her initial assessment in the emergency department, was negative for acute pathology. Compared to the previous study, there was residual subacute to chronic subdural hematoma on the left measuring 5 mm, no associated mass-effect or shift. There was generalized cerebral atrophy as well as chronic small vessel ischemic disease. A follow-up CT of the head was completed this morning, no significant change in the previously identified small subacute to chronic appearing left-sided subdural hematoma measuring up to 5 mm in thickness, again, no midline shift. I did independently review these images and was able to appreciate the improving intracranial hemorrhage including resolution of the previous subarachnoid component, midline shift, as well as significant improvement in thickness of the chronic left subdural hematoma. The patient is an unreliable historian, she denies any particular complaints, no headaches, vision change, or weakness. She is not oriented and unable to provide any pertinent details regarding her history of present illness in the context of what looks like an advanced dementia. The patient is prescribed donepezil and memantine. These medications are managed by another provider. I did attempt to review her records from [facility], however, it looks like her neurologic care is provided by a specialist affiliated with [facility] and I was not granted access to these particular records. However, I did note her diagnosis of Alzheimer's disease with associated behavioral disturbance which would be in keeping with her prescriptions for both Aricept and memantine. She is on sertraline as well although I see a depressive disorder is listed in her past medical history. She is also prescribed lorazepam for anxiety. She is not on other medications for management of mood or behavior according to available medical records. Allergies Allergy/AdvReac Type Severity Reaction Status Date / Time cefepime Allergy Mild itch Verified 03/20/21 01:49 shellfish derived Allergy Unknown ON Verified 09/23/21 22:41 [facility] MED LIST Home Medications Medication Instructions Recorded Confirmed Type docusate sodium 100 mg capsule 100 mg PO BID 01/06/21 09/23/21 History (Colace) levothyroxine 88 mcg tablet 88 mcg PO DAILYBB 01/06/21 09/23/21 History sertraline 50 mg tablet 50 mg PO QDL 01/06/21 09/23/21 History triamcinolone acetonide 0.1 % 1 applic topical BID 01/06/21 09/23/21 History topical ointment acetaminophen 325 mg tablet 650 mg PO Q4H PRN FEVER/PAIN 03/19/21 09/23/21 History (Tylenol) food supplemt, lactose-reduced 1 ea PO BID 03/19/21 09/23/21 History (Ensure oral liquid) hydroxyzine HCl 50 mg tablet 50 mg PO QID PRN Itching 03/19/21 09/23/21 History nystatin 100,000 unit/gram topical 1 applic topical BID PRN 03/19/21 09/23/21 History powder RASH/IRRITATION polyethylene glycol 3350 17 17 g PO QDL PRN Constipation 03/19/21 09/23/21 History gram/dose oral powder (Miralax) sennosides 8.6 mg-docusate sodium 1 tab-cap PO QDL PRN Constipation 03/19/21 09/23/21 History 50 mg tablet (Senna-S) donepezil 10 mg tablet 10 mg PO DAILY 09/23/21 09/23/21 History lisinopril 5 mg tablet 5 mg PO DAILY 09/23/21 09/23/21 History lorazepam 0.5 mg tablet 0.5 mg PO Q6 PRN Anxiety 09/23/21 09/23/21 History memantine 28 mg capsule 28 mg PO DAILY 09/23/21 09/23/21 History sprinkle,extended release 24hr pantoprazole 40 mg tablet,delayed 40 mg PO DAILY 09/23/21 09/23/21 History release Patient History Medical History Alzheimer disease Bullous pemphigoid Hypothyroidism Surgical History History of thyroidectomy History of tonsillectomy and adenoidectomy Family History Other Stroke Social History Smoking Status: Never smoker Tobacco Type: Cigarettes and Pipe Hx Alcohol Use: No Hx Substance Use: No Preferred Language: [place] Communication Ability: Effective Line Manager Required: No Beliefs That Will Affect Care: None marital status: / Current Living Situation: Detention Current Living Situation Comment: Memory care facility Feels Safe at Home: Yes Assistive Devices: None Review of Systems Review of Systems: Unobtainable due to cognitive status Exam (Neuro) Constitutional: + thin and + behavioral limitations Eyes: PERRL and EOM intact bilaterally Cardiovascular: Vessels: no carotid bruit Neurologic: Oriented to:: Person; negative Place or Time Cognitive Function: negative Attention, Concentration, Judgement or Insight Memory: negative Short Term Intact or Remote Intact Attention: negative Span Intact or Concentration Intact Speech Fluency: negative Dysarthria or Dysfluency Fund of Knowledge: Vocabulary; negative Current Events or Past History Cranial Nerves: Normal II, III, IV, , V, VII, VIII, IX, X, XI and XII Motor Strength: Normal Lower Extremities and Normal Upper Extremities Motor Tone: Normal Lower Extremities and Normal Upper Extremities Muscle Bulk/Involuntary Movements: No Involuntary Movements Sensation: Light Touch Intact, Pain/ Temperature Intact, Vibration Intact and Proprioception Intact Deep Tendon Reflexes: Rt Triceps: 2+, Lt Triceps: 2+, Rt Biceps: 2+, Lt Biceps: 2+, Rt Brachioradialis: 2+, Lt Brachioradialis: 2+, Lt Patellar: 2+, Rt Ankle: 1+ and Lt Ankle: 1+ Special Tests: negative Babinski Present Details: Did not cooperate for testing of coordination. Unable to evaluate gait in the context of patient's neurological status. Patient unable to cooperate for direct ophthalmoscopic examination. Results & Data ([facility]) Vital Signs (Past 12 Hours) Vital Signs Temp Pulse Pulse Pulse Resp BP BP 09/24/21 07:37 36.5 C 63 18 153/76 H 09/24/21 00:57 72 09/24/21 03:10 36.8 C 67 18 123/58 L 09/24/21 01:27 36.8 C 65 14 137/63 09/24/21 00:34 74 18 135/68 09/23/21 22:28 70 15 Pulse Ox O2 Del Method 09/24/21 07:37 97 Room Air 09/24/21 00:57 09/24/21 03:10 97 Room Air 09/24/21 01:27 98 Room Air 09/24/21 00:34 99 Room Air 09/23/21 22:28 95 Room Air Laboratory Results WBC 11.74, hemoglobin 11.4, hematocrit 34.2, MCV 93.2, platelet count 320, sodium 137, potassium 4.2, BUN 25, creatinine 1.02, glucose 88, calcium 8.7, magnesium 2.1, AST 26, ALT 25. Diagnostic Findings CT of the head is as described in the history of present illness. I did independently review these images as described above. Coding Level of Care Code 32167 Initial Inpt Care Lvl 3 Diagnoses SDH (subdural hematoma) S06.5X9A Alzheimer disease G30.9; F02.80
--- NOTE | 2021-09-24 09:58 | Hospitalist Progress Note ---
Date of Service September 24, 2021 Assessment & Plan (1) Fall: (2) SDH (subdural hematoma): (3) Alzheimer disease: Plan Presented from [facility] after a fall in a patient with dementia and h/o subdural hemorrhage No reported LOC CT head on presentation noted residual subacute to chronic subdural hematoma with no residual mass effect/midline shift Repeat CT head this AM is unchanged Neurologist recs noted Review of other XR and CT done on presentation noted some old subacute fractures Pelvic XR noted a comminuted right pubic body and inferior pubic ramus fracture. Will be managed conservatively. However, will appreciate orthopedic's eval and recommendations regarding these PT/OT eval Fall precautions Continue donepezil, memantine Continue zoloft Continue levothyroxine for hypothyroidism DVT ppx- SCD Admission and Anticipated Discharge Date Admission Date: September 23, 2021 Subjective Patient seen and examined She is alert and oriented to person only She denied all complaints but a very poor historian Review of Systems Review of Systems: Unobtainable due to cognitive status Physical Exam Constitutional: + well hydrated; no acute distress Eyes: PERRL, conjunctivae normal, anicteric sclerae ENMT: external ear and nose normal, oropharynx normal Respiratory: normal respiratory effort, lungs clear to auscultation Cardiovascular: Rate/Rhythm: regular rate and regular rhythm S1 S2 Gastrointestinal (Abdomen): normal bowel sounds, soft, nontender, no hepatosplenomegaly Musculoskeletal: No pedal edema Neurologic: PERRL, EOMI, accommodation nl, no face palsy, no dysarthria Psychiatric: Orientation: alert and oriented to person; + not oriented to place and + not oriented to time Insight: + poor insight Results & Data Results & Data ([facility]) Vital Signs (Past 12 Hours) Vital Signs Temp Pulse Pulse Pulse Resp BP BP 09/24/21 07:00 63 09/24/21 07:37 36.5 C 63 18 153/76 H 09/24/21 00:57 72 09/24/21 03:10 36.8 C 67 18 123/58 L 09/24/21 01:27 36.8 C 65 14 137/63 09/24/21 00:34 74 18 135/68 09/23/21 22:28 70 15 Pulse Ox O2 Del Method 09/24/21 07:00 09/24/21 07:37 97 Room Air 09/24/21 00:57 09/24/21 03:10 97 Room Air 09/24/21 01:27 98 Room Air 09/24/21 00:34 99 Room Air 09/23/21 22:28 95 Room Air Laboratory Results Abnormal lab results 09/23/21 09/23/21 09/24/21 Range/Units 22:26 22:26 05:34 WBC 11.36 H 11.74 H (4.8-10.8) K/ul RBC 3.85 L 3.67 L (3.93-5.22) M/uL Hgb 11.8 L 11.4 L (12.0-16.0) g/dl RDW Std Deviation 46.5 H (36.4-46.3) fL MPV 9.3 L 9.3 L (9.4-12.3) fL Neut # (Auto) 7.40 H 7.37 H (1.4-6.5) K/uL Sac # (Auto) 0.93 H 1.06 H (0.24-0.82) K/uL Eos # (Auto) 0.71 H 0.97 H (0-0.50) K/uL Immature Gran # (Auto) 0.08 H 0.07 H (0.00-0.02) K/uL BUN 27 H (6-23) mg/dl BUN/Creatinine Ratio 26.2 H (10-20) Lipase 197 H (11-82) U/L 09/24/21 Range/Units 05:34 WBC (4.8-10.8) K/ul RBC (3.93-5.22) M/uL Hgb (12.0-16.0) g/dl RDW Std Deviation (36.4-46.3) fL MPV (9.4-12.3) fL Neut # (Auto) (1.4-6.5) K/uL Sac # (Auto) (0.24-0.82) K/uL Eos # (Auto) (0-0.50) K/uL Immature Gran # (Auto) (0.00-0.02) K/uL BUN 25 H (6-23) mg/dl BUN/Creatinine Ratio 24.5 H (10-20) Lipase (11-82) U/L (1) Fall Encounter type: initial encounter Qualified Code(s): W19.XXXA - Unspecified fall, initial encounter
[2021-09-24] MEDS: SERTRALINE HCL 50 MG TABLET PO SCH (11:52)
[2021-09-24] MEDS: DOCUSATE SODIUM 100 MG CAP PO SCH ×2 (11:52→16:23)
--- NOTE | 2021-09-24 13:55 | Consultation Report ---
ORTHOPEDIC CONSULT DATE OF SERVICE: 09/24/2021 The patient is an 86-year-old white female, pleasantly sitting in bed today. She had a fall and sust ained a fracture of her right pubic body involving the superior and inferior pubic ramus, not involvi ng the acetabulum. She denies a specific history of pain. She does not react to log rolling of her hip, although she does have a history of dementia. I reviewed the x-rays and films of her fracture. I would allow her to do transfers with weightbearing as necessary for transfers and we will follow jordyn ashford during her hospitalization. ASSESSMENT: Right pubic superior and inferior body ramus fracture. PLAN: The plan is for conservative management, transfers, therapy as needed and we will follow with mony abrams. Job ID: [id number]
[2021-09-25] MEDS: LEVOTHYROXINE SODIUM 88 MCG TABLET PO SCH (06:18)
[2021-09-25] MEDS: PANTOprazole 40 MG TAB PO SCH (07:35)
[2021-09-25] MEDS: TRIAMCINOLONE ACET 0.1% OINT 15 GM TUBE TOP SCH ×2 (07:35→20:45)
[2021-09-25] MEDS: DONEPEZIL HCL 10 MG TAB PO SCH (07:36)
[2021-09-25] MEDS: lisinopril 5 MG TAB PO SCH (07:36)
[2021-09-25 10:26] LABS: Hematocrit (blood only) 38.2 % (34.1-44.9); Hemoglobin 12.6 g/dl (12.0-16.0); Mean Corpuscular Hemoglobin 30.5 pg (25.0-34.0); Mean Corpuscular Volume 92.5 fL (80.0-100.0); Mean Platelet Volume 9.4 fL (9.4-12.3); Platelet Count 365 K/uL (130-400); RDW Standard Deviation 44.3 fL (36.4-46.3); Red Blood Count 4.13 M/uL (3.93-5.22); White Blood Count 10.33 K/ul (4.8-10.8)
[2021-09-25 10:50] LABS: BUN Creatinine Ratio 18.4 (10-20); Calcium 9.2 mg/dl (8.5-10.1); Creatinine Clr Calc Pharmacy 32.3 ml/min; Est GFR (African American) 60.5 ml/min; Est GFR (Non-African American) 52.2 ml/min; Potassium 4.4 mmol/L (3.5-5.1)
[2021-09-25] MEDS: DOCUSATE SODIUM 100 MG CAP PO SCH ×2 (11:33→16:53)
[2021-09-25] MEDS: SERTRALINE HCL 50 MG TABLET PO SCH (11:33)
--- NOTE | 2021-09-25 15:13 | Hospitalist Progress Note ---
Date of Service September 25, 2021 Assessment & Plan (1) Fall: (2) SDH (subdural hematoma): (3) Alzheimer disease: Plan Fall from a shower chair Pelvic [facility] in a patient with dementia and h/o subdural hemorrhage. No reported LOC Admitting CT C-spine with osteopenia and no acute findings. Admitting CXR with no acute findings. Admitting CT head with small residual subacute to chronic subdural hematoma on the left measuring 5 mm with no mass-effect or midline shift. Repeat CT head with stable subacute left-sided subdural hematoma. Admitting lumbar spine x-ray with compression deformities of L2 and L4 with no definite acute fracture. Admitting pelvic x-ray with comminuted fracture of the right pubic body and inferior pubic ramus. Neurologist evaluated, appreciate recommendation. Continue with donepezil and memantine. For Pelvic fracture, conservative management. Orthopedics evaluated, appreciate recs. PT/OT MITZY duenas to assist with DC planning. Fall precaution. Continue Z oloft/donepezil/memantine. Continue other home meds. DVT prophylaxis: SCDs Disposition: PT/OT CM to assist with DC planning, stable medically. Patient will need to follow-up with orthopedics and her neurologist as an outpatient. Admission and Anticipated Discharge Date Admission Date: September 23, 2021 Subjective Patient seen and examined at bedside as a follow-up of fall and right pubic body and inferior pubic ramus fracture. Patient was lying in bed, alert and oriented to person only, NAD, on room air, denies acute events overnight. Per RN, no new acute events overnight and patient eating okay. Patient denies discomfort or pain. ROS n/a, pt is a very poor historian. Physical Exam Physical Exam: GENERAL: Alert and oriented x1. NAD, on RA. Old, weak and frail appearing. HEENT: No pallor, no icterus. Pupils equal, round and reactive to light. Oral mucosa moist. NECK: No JVD, no neck masses. HEART: S1 and S2 heard. Regular rate and rhythm. No murmur, no gallop. RESPIRATORY SYSTEM: Normal AP diameter. No accessory muscle use. No wheezing, no crackles. ABDOMEN: Soft, bowel sounds present, nontender, no distention. CENTRAL NERVOUS SYSTEM: No facial droop. Speech is clear. Obeys simple commands. Moves extremities. EXTREMITIES: No edema, no erythema seen. Results & Data Results & Data ([facility]) Vital Signs (Past 12 Hours) Vital Signs Temp Pulse Resp BP Pulse Ox O2 Del Method 09/25/21 11:35 36.9 C 65 20 114/62 94 09/25/21 07:30 36.6 C 65 18 111/67 97 Room Air (1) Fall Encounter type: initial encounter Qualified Code(s): W19.XXXA - Unspecified fall, initial encounter
[2021-09-26] MEDS: LEVOTHYROXINE SODIUM 88 MCG TABLET PO SCH (05:56)
[2021-09-26] MEDS: TRIAMCINOLONE ACET 0.1% OINT 15 GM TUBE TOP SCH (05:56)
[2021-09-26] MEDS: DONEPEZIL HCL 10 MG TAB PO SCH (08:56)
[2021-09-26] MEDS: PANTOprazole 40 MG TAB PO SCH (08:56)
[2021-09-26] MEDS: lisinopril 5 MG TAB PO SCH (08:56)
[2021-09-26] MEDS: SERTRALINE HCL 50 MG TABLET PO SCH (11:31)
[2021-09-26] MEDS: DOCUSATE SODIUM 100 MG CAP PO SCH (11:32)
--- NOTE | 2021-09-26 13:55 | Discharge Summary ---
Date of Service September 26, 2021 Admission HPI Per Admitting Provider DATE OF ADMISSION: 09/23/2021. CHIEF COMPLAINT: Fall. HISTORY OF PRESENT ILLNESS: This is an 86-year-old female, a resident of [facility] dementia unit with past medical history significant for dementia, hypertension, history of traumatic subdural hematoma, subarachnoid hemorrhage, postsurgical hypothyroidism, mood disorder, bullous pemphigoid, past tobacco abuse, presents with a fall. As per the nursing staff, she was getting shower and sitting on a shower chair when she fell, hit her head and her back. No loss of consciousness. That is the reason, she was brought to ER.. As per group home, the patient has been oriented to name only. She ambulates with a walker. Eats regular food. She is DNR. In the ER, her labs showed WBC of 11.3. Rest of the labs are okay. COVID is negative. CT of the head showing small residual subacute to chronic subdural hematoma in the left measuring 5 mm. No residual mass effect or midline shift. Getting admitted for followup with a repeat CT scan. The patient is alert and awake, can tell her name, could not tell her date of , does not know where she is. Denies any headache, denies any chest pain. Denies any nausea or abdominal pain. Could not get much history from the patient. Talked to her son, who ok with observation and he also states the patient is DNR. ALLERGIES: TO CEFEPIME AND SHELLFISH. PAST MEDICAL HISTORY: As mentioned above. PAST SURGICAL HISTORY: Tonsillectomy, adenoidectomy, thyroidectomy. FAMILY HISTORY: Significant for stroke. SOCIAL HISTORY: Past tobacco abuse. No alcohol abuse. Current group home resident. MEDICATIONS: The patient is on Tylenol 650 mg p.o. q.4 hours p.r.n. for pain or fever, Colace 100 mg p.o. b.i.d., donepezil 10 mg p.o. daily, Ensure 1 can p.o. b.i.d., hydroxyzine 50 mg p.o. q.i.d. p.r.n., levothyroxine 88 mcg p.o. daily, lisinopril 5 mg p.o. daily, lorazepam 0.5 mg p.o. q. 6 hours p.r.n., memantine 28 mg p.o. daily, nystatin topical b.i.d. p.r.n., Protonix 40 mg p.o. daily, MiraLax 17 g p.o. daily p.r.n., Senna-S one tablet p.o. daily p.r.n., sertraline 50 mg p.o. daily p.r.n., triamcinolone topical b.i.d. REVIEW OF SYSTEMS: Could not get review of systems as the patient has dementia. Admission Exam Per Admitting Provider GENERAL: The patient is old and frail, not in acute distress. VITAL SIGNS: Temperature 37, pulse 70, respiratory rate 15, blood pressure 132/69, oxygen 93% on room air. HEENT: Pupils equal, round and reactive to light. Oral mucosa moist. NECK: No JVD, no neck masses. CARDIOVASCULAR: S1 and S2 heard. Regular rate and rhythm. No murmur, no gallop. RESPIRATORY SYSTEM: Normal AP diameter. No accessory muscle use. No wheezing, no crackles. ABDOMEN: Soft, bowel sounds present, nontender, no distention. CENTRAL NERVOUS SYSTEM: Alert and awake, oriented to name only. Speech is okay. No facial droop. Obeys simple commands. Moves extremities. EXTREMITIES: No edema, no erythema. Principal Diagnosis Pelvic fracture Chronic subdural hemorrhage Discharge Exam GENERAL: Alert and oriented x self and . NAD, on RA. Old, weak and frail appearing. HEENT: No pallor, no icterus. Pupils equal, round and reactive to light. Oral mucosa moist. NECK: No JVD, no neck masses. HEART: S1 and S2 heard. Regular rate and rhythm. No murmur, no gallop. RESPIRATORY SYSTEM: Normal AP diameter. No accessory muscle use. No wheezing, no crackles. ABDOMEN: Soft, bowel sounds present, nontender, no distention. CENTRAL NERVOUS SYSTEM: No facial droop. Speech is clear. Obeys simple commands. Moves extremities. EXTREMITIES: No edema, no erythema seen. Discharge Data Allergies Allergy/AdvReac Type Severity Reaction Status Date / Time cefepime Allergy Mild itch Verified 03/20/21 01:49 shellfish derived Allergy Unknown ON Verified 09/23/21 22:41 [facility] LIST Consultations 09/23/21 22:14 ED Decision to Admit Stat 09/24/21 08:00 Consult Neurology Routine 09/24/21 08:44 Consult Orthopedic Surgery Routine Ordered Studies 09/23/21 19:55 CT cervical spine wo con Stat CT head/brain wo con Stat 09/24/21 08:00 CT head/brain wo con Routine Hospital Course (1) Fall: (2) SDH (subdural hematoma): (3) Alzheimer disease: Plan Fall from a shower chair Pelvic fracture Presented from [facility] after a fall in a patient with dementia and h/o subdural hemorrhage. No reported LOC Admitting CT C-spine with osteopenia and no acute findings. Admitting CXR with no acute findings. Admitting CT head with small residual subacute to chronic subdural hematoma on the left measuring 5 mm with no mass-effect or midline shift. Repeat CT head with stable subacute left-sided subdural hematoma. Admitting lumbar spine x-ray with compression deformities of L2 and L4 with no definite acute fracture. Admitting pelvic x-ray with comminuted fracture of the right pubic body and inferior pubic ramus. Neurologist evaluated, appreciate recommendation. Continue with donepezil and memantine. For Pelvic fracture, conservative management. Orthopedics evaluated, appreciate recs. PT/OT MITZY duenas to assist with DC planning. Fall precaution. Continue Zoloft/donepezil/memantine. Continue other home meds. DVT prophylaxis: SCDs Patient being discharged back to [facility] with following instruction at the point of discharge: Follow-up with your primary care physician within a week time. Follow-up with your orthopedic doctors in 1 to 2 weeks time as an outpatient. Take your medications as prescribed. Total Time Total Time Spent Total Time Spent (In Minutes): 35 Discharge Plan Discharge Items Patient Disposition: Personal Retirement Reason For Visit: FALL Discharge Diagnosis: Pelvic fracture Chronic subdural hemorrhage Activity: As commented below Activity Comment: Weightbearing as tolerated for transfers. Non-emergency contact: Primary Care Provider Call non-emergency contact if: you have any medication questions, your symptoms worsen, your pain is worsening and your temperature is above 101 Follow-up/Referrals: [address] [Primary Care Provider] - Diet: Regular Diet Texture: Easy to Chew Stephen Attending Provider Instructions: Follow-up with your primary care physician within a week time. Follow-up with your orthopedic doctors in 1 to 2 weeks time as an outpatient. Take your medications as prescribed. Pending Studies at Discharge: No Stand-Alone Forms: My [employer], Smoking Cessation Skilled Items Patient informed of condition?: Yes DNR: Yes Discharge Level of Care: Other Communicable Disease: No Discharge Prognosis: Stable Lines: None Urinary Catheter: No Medications and DC Order Prescriptions: Continued donepezil 10 mg tablet 10 mg PO DAILY lisinopril 5 mg tablet 5 mg PO DAILY memantine 28 mg capsule,sprinkle,ER 24hr 28 mg PO DAILY pantoprazole 40 mg tablet,delayed release (DR/EC) 40 mg PO DAILY lorazepam 0.5 mg tablet 0.5 mg PO Q6 PRN (Reason: Anxiety) levothyroxine 88 mcg tablet 88 mcg PO DAILYBB triamcinolone acetonide 0.1 % ointment 1 applic TOPICAL BID Rx Instructions: AT 0700 & 2000 docusate sodium [Colace] 100 mg Capsule 100 mg PO BID Rx Instructions: TAKES AT 1200 & 1700 sertraline 50 mg tablet 50 mg PO QDL acetaminophen [Tylenol] 325 mg Tablet 650 mg PO Q4H MDD 3 GRAMS/24 HOURS PRN (Reason: FEVER/PAIN) sennosides-docusate sodium [Senna-S] 8.6-50 mg Tablet 1 tab-cap PO QDL PRN (Reason: Constipation) hydroxyzine HCl 50 mg tablet 50 mg PO QID PRN (Reason: Itching) nystatin 100,000 unit/gram powder 1 applic TOPICAL BID PRN (Reason: RASH/IRRITATION) polyethylene glycol 3350 [Miralax] 17 gram/dose Powder 17 g PO QDL PRN (Reason: Constipation) Ensure Liquid 1 ea PO BID Rx Instructions: TAKES AT 1200 & 1700 Discharge Orders: Discharge Order (Routine); Ordered 09/26/21 Ordered By: Lyubov Ernst Admission Data Admit Date/Time: 09/23/21 23:53 Attending Provider: Lyubov Ernst Admit Provider: Cristhian Esquivel Primary Care Provider: Tova Vargas Other Providers: Cristhian Esquivel ; Chuckie Ramirez ; Peter Michele
== END 2021-09-26 18:48 | disposition home or self-care (01) | DRG 65 ==
LOC: ED 19:43 → 2N 23:53 → SUATTDRO 23:53 → 2N 09-24 00:34
DX: Z79.899 Other long term (current) drug therapy; F02.80 Dementia in other diseases classified elsewhere, unspecified severity, without behavioral disturbance, psychotic disturbance, mood disturbance, and anxiety; Z91.013 Allergy to seafood; F32.A Depression, unspecified; Z87.891 Personal history of nicotine dependence; Z79.890 Hormone replacement therapy; K21.9 Gastro-esophageal reflux disease without esophagitis; Z66 Do not resuscitate; I10 Essential (primary) hypertension; G30.9 Alzheimer's disease, unspecified; S32.9XXA Fracture of unspecified parts of lumbosacral spine and pelvis, initial encounter for closed fracture; E03.9 Hypothyroidism, unspecified; W18.2XXA Fall in (into) shower or empty bathtub, initial encounter; F41.9 Anxiety disorder, unspecified; I62.03 Nontraumatic chronic subdural hemorrhage